=== PATIENT | male | born 1985 | race Hispanic/Latino ===

== ENCOUNTER 2018-04-18 11:48 | Emergency (ER) | payer OTHER ==
[2018-04-18 12:25] LABS: Urine Blood NEGATIVE (NEG); Urine Glucose NEGATIVE (NEG); Urine Protein NEGATIVE (NEG); Urine Specific Gravity 1.005 (1.005-1.030); Urine pH 5.5 (5.0-7.0)
[2018-04-18 12:46] LABS: Barbiturates NEGATIVE (NEGATIVE); Benzodiazepines NEGATIVE (NEGATIVE); Cocaine POSITIVE (NEGATIVE); METHAMPHETAM NEGATIVE (NEGATIVE); Methadone NEGATIVE (NEGATIVE); Opiates NEGATIVE (NEGATIVE); Phencyclidine NEGATIVE (NEGATIVE); THC Cannibis NEGATIVE (NEGATIVE)
[2018-04-18 12:57] LABS: Absolute Lymphocytes (CBC) 2.1 K/uL (0.7-4.9); Absolute Monocytes 1.2 K/uL (0.1-1.3); Absolute Neutrophil 11.6 K/uL (1.8-8.0); Basophils % 0.3 % (0-1.3); Eosinophils % 0.2 % (0-4.4); MCH 30.5 pg (27.0-35.0); MCV 88.3 fL (80-100); MPV 7.7 fL (7.6-11.3); Monocytes % 8.1 % (3.3-12.3); RBC Red Blood Cell Count 4.64 M/uL (4.33-5.43)
[2018-04-18 12:58] LABS: Protime INR 1.17
--- NOTE | 2018-04-18 12:58 | RAD REPORT ---
EXAM DESCRIPTION: Brant Single View04/18/2018 12:42 pm CLINICAL HISTORY: Chest pain COMPARISON: none FINDINGS: The lungs appear clear of acute infiltrate. The heart appears borderline enlarged IMPRESSION: No acute abnormalities displayed
[2018-04-18 13:57] LABS: ALT/SGPT 34 U/L (12-78); AST/SGOT 21 U/L (15-37); Albumin 4.1 g/dL (3.4-5.0); Alkaline Phosphatase 82 U/L (45-117); BUN Blood Urea Nitrogen 4 mg/dL (7-18); Bicarbonate 26 mmol/L (21-32); Bilirubin Direct < 0.1 mg/dL (0-0.2); Bilirubin Total 0.5 mg/dL (0.2-1.0); Glucose Level 103 mg/dL (74-106); Magnesium 1.9 mg/dL (1.8-2.4); NT PRO-BNP 36 pg/mL (<125); Potassium 3.2 mmol/L (3.5-5.1); Protein, Total 8.3 g/dL (6.4-8.2); Sodium Level 138 mmol/L (136-145); Troponin (Emerg Dept Use Only) < 0.02 ng/mL (0.0-0.045)
--- NOTE | 2018-04-18 14:34 | EKG ---
Test Date: 2018-04-18 Test Time: 12:02:41 Technician Preventative Medicine: MARIO MEASUREMENT RESULTS: Intervals: Rate: 86 CA: 146 QRSD: 110 QT: 354 QTc: 423 [place]: P: 67 CA: 146 QRS: 31 T: 44 INTERPRETIVE STATEMENTS: Normal sinus rhythm Normal ECG No previous ECG available for comparison Electronically Signed On 04-18-18 14:33:52 CABLE ENGINEER [employer] by Wolf Cameron
--- NOTE | 2018-04-18 15:17 | ER ---
Nurse's Notes [facility] Name: Guy Joe Jr Age: 33 yrs Sex: Male : 1985 Arrival Date: 04/18/2018 Time: 11:51 Bed 3 Private MD: None, None Diagnosis: Cocaine abuse Presentation: 04/18 11:54 Presenting complaint: Patient states: "I did a gram of cocaine this morning and I just aj don't feel right. I feel numb and tingly all over and I just feel lost." Denies chest pain. Transition of care: patient was not received from another setting of care. Onset of symptoms was April 18, 2018. Risk Assessment: Do you want to hurt yourself or someone else? Patient reports no desire to harm self or others. Initial Sepsis Screen: Does the patient meet any 2 criteria? No. Patient's initial sepsis screen is negative. Does the patient have a suspected source of infection? No. Patient's initial sepsis screen is negative. Care prior to arrival: None. 11:54 Method Of Arrival: Ambulatory 11:54 Acuity: LOW 3 aj Triage Assessment: 11:56 General: Appears in no apparent distress. uncomfortable, Behavior is cooperative, aj anxious. Pain: Denies pain. Neuro: Level of Consciousness is awake, alert, obeys commands, Oriented to person, place, time, situation, Appropriate for age Tingling in entire body. Respiratory: Airway is patent Respiratory effort is even, unlabored, Respiratory pattern is regular, symmetrical. Derm: Skin is intact, is healthy with good turgor, Skin is pink, warm \\T\\ dry. normal. Historical: - Allergies: 11:56 No Known Allergies; aj - Home Meds: 11:56 Xanax Oral [Active]; aj - PMHx: 11:56 Anxiety; aj - PSHx: 11:56 Appendectomy; aj - Immunization history:: Adult Immunizations up to date. - Social history:: Smoking status: Patient uses tobacco products, smokes one-half pack cigarettes per day, Patient uses street drugs, cocaine. - Ebola Screening: : Patient negative for fever greater than or equal to 101.5 degrees Fahrenheit, and additional compatible Ebola Virus Disease symptoms Patient denies exposure to infectious person Patient denies travel to an Ebola-affected area in the 21 days before illness onset No symptoms or risks identified at this time. Screenin:59 Abuse screen: Denies threats or abuse. Denies injuries from another. Nutritional bp screening: No deficits noted. Tuberculosis screening: No symptoms or risk factors identified. Fall Risk None identified. Assessment: 12:01 General: SEE TRIAGE NOTE. bp 13:00 Reassessment: ALL CURRENT ORDERS COMPLETED, RESULTS AND DISPO PENDING. bp 15:39 Reassessment: PT D/C HOME AMBULATORY WITH FAMILY, DX WITH COCAINE ABUSE. bp Vital Signs: 11:56 BP 147 / 90; Pulse 94; Resp 20; Temp 98.7; Pulse Ox 98% on R/A; Weight 108.86 kg; aj Height 6 ft. 1 in. (185.42 cm); 13:00 BP 127 / 72; Pulse 80; Resp 20; Pulse Ox 98% ; bp 15:00 BP 131 / 75; Pulse 84; Resp 18; Pulse Ox 98% ; bp 11:56 Body Mass Index 31.66 (108.86 kg, 185.42 cm) aj ED Course: 11:51 Patient arrived in ED. mr 11:52 None, None is Private Physician. mr 11:55 Triage completed. aj 11:56 Arm band placed on left wrist. Patient placed in an exam room. aj 11:58 Florencio Ray MD is Attending Physician. kdr 11:58 Yuriy Parr, SPENCER is Primary Nurse. bp 11:59 Patient has correct armband on for positive identification. Bed in low position. Call bp light in reach. Side rails up X2. Adult w/ patient. 12:00 Inserted saline lock: 20 gauge in left upper arm, using aseptic technique. Blood bp collected. 12:09 EKG done, by machine set up technician. reviewed by Florencio Ray MD. at1 12:37 X-ray completed. Portable x-ray completed in exam room. Patient tolerated procedure jb2 well. 12:40 XRAY Chest (1 view) In Process Unspecified. EDMS 15:40 No provider procedures requiring assistance completed. IV discontinued, intact, bp bleeding controlled, No redness/swelling at site. Pressure dressing applied. Administered Medications: No medications were administered Outcome: 15:16 Discharge ordered by . kdr 15:40 Discharged to home ambulatory, with family. bp 15:40 Condition: stable 15:40 Discharge instructions given to patient, Instructed on discharge instructions, follow up and referral plans. Demonstrated understanding of instructions, follow-up care. 15:41 Patient left the ED. bp Signatures: Dispatcher [employer] EDTarah Bell, RN RN Florencio Martínez MD MD kdr Rivera, Mary mr Martirtopher, Bill jb2 Tarah Lazar, wash test checker EKG Tat1 Yuriy Parr RN RN bp
--- NOTE | 2018-04-18 15:17 | EDPHYS ---
Physician Documentation [facility] Name: Guy Joe Jr Age: 33 yrs Sex: Male : 1985 Arrival Date: 04/18/2018 Time: 11:51 Bed 3 Private MD: None, None ED Physician Florencio Ray HPI: 04/18 17:43 This 33 yrs old Male presents to ER via Ambulatory with complaints of Drug kdr Abuse. Historical: - Allergies: 11:56 No Known Allergies; aj - Home Meds: 11:56 Xanax Oral [Active]; aj - PMHx: 11:56 Anxiety; aj - PSHx: 11:56 Appendectomy; aj - Immunization history:: Adult Immunizations up to date. - Social history:: Smoking status: Patient uses tobacco products, smokes one-half pack cigarettes per day, Patient uses street drugs, cocaine. - Ebola Screening: : Patient negative for fever greater than or equal to 101.5 degrees Fahrenheit, and additional compatible Ebola Virus Disease symptoms Patient denies exposure to infectious person Patient denies travel to an Ebola-affected area in the 21 days before illness onset No symptoms or risks identified at this time. ROS: 18:54 Constitutional: Negative for fever, chills, and weight loss, Eyes: Negative for injury, kdr pain, redness, and discharge, ENT: Negative for injury, pain, and discharge, Neck: Negative for injury, pain, and swelling, Cardiovascular: Negative for chest pain, palpitations, and edema, Respiratory: Negative for shortness of breath, cough, wheezing, and pleuritic chest pain, Abdomen/GI: Negative for abdominal pain, nausea, vomiting, diarrhea, and constipation, Back: Negative for injury and pain, : Negative for injury, bleeding, discharge, and swelling, MS/Extremity: Negative for injury and deformity, Skin: Negative for injury, rash, and discoloration, Psych: Negative for depression, anxiety, suicide ideation, homicidal ideation, and hallucinations, Allergy/Immunology: Negative for hives, rash, and allergies, Endocrine: Negative for neck swelling, polydipsia, polyuria, polyphagia, and marked weight changes, Hematologic/Lymphatic: Negative for swollen nodes, abnormal bleeding, and unusual bruising. 18:54 Neuro: Positive for altered mental status, weakness, Confusion \T\ altered perception. Exam: 18:55 Constitutional: This is a well developed, well nourished patient who is awake, alert, kdr and in no acute distress. Head/Face: Normocephalic, atraumatic. Eyes: Pupils equal round and reactive to light, extra-ocular motions intact. Lids and lashes normal. Conjunctiva and sclera are non-icteric and not injected. Cornea within normal limits. Periorbital areas with no swelling, redness, or edema. Neck: Trachea midline, no thyromegaly or masses palpated, and no cervical lymphadenopathy. Supple, full range of motion without nuchal rigidity, or vertebral point tenderness. No Meningismus. Chest/axilla: Normal chest wall appearance and motion. Nontender with no deformity. No lesions are appreciated. Cardiovascular: Regular rate and rhythm with a normal S1 and S2. No gallops, murmurs, or rubs. Normal PMI, no JVD. No pulse deficits. Respiratory: Lungs have equal breath sounds bilaterally, clear to auscultation and percussion. No rales, rhonchi or wheezes noted. No increased work of breathing, no retractions or nasal flaring. Abdomen/GI: Soft, non-tender, with normal bowel sounds. No distension or tympany. No guarding or rebound. No evidence of tenderness throughout. Back: No spinal tenderness. No costovertebral tenderness. Full range of motion. Skin: Warm, dry with normal turgor. Normal color with no rashes, no lesions, and no evidence of cellulitis. MS/ Extremity: Pulses equal, no cyanosis. Neurovascular intact. Full, normal range of motion. Neuro: Awake and alert, GCS 15, oriented to person, place, time, and situation. Cranial nerves II-XII grossly intact. Motor strength 5/5 in all extremities. Sensory grossly intact. Cerebellar exam normal. Normal gait. Psych: Awake, alert, with orientation to person, place and time. Behavior, mood, and affect are within normal limits. Vital Signs: 11:56 BP 147 / 90; Pulse 94; Resp 20; Temp 98.7; Pulse Ox 98% on R/A; Weight 108.86 kg; aj Height 6 ft. 1 in. (185.42 cm); 13:00 BP 127 / 72; Pulse 80; Resp 20; Pulse Ox 98% ; bp 15:00 BP 131 / 75; Pulse 84; Resp 18; Pulse Ox 98% ; bp 11:56 Body Mass Index 31.66 (108.86 kg, 185.42 cm) aj MDM: 15:16 Patient medically screened. kdr 18:55 Data reviewed: vital signs, nurses notes, lab test result(s). Counseling: I had a kdr detailed discussion with the patient and/or guardian regarding: the historical points, exam findings, and any diagnostic results supporting the discharge/admit diagnosis, lab results, the need for outpatient follow up. ED course: The patient was stable and non-acute in the ED. 04/18 11:59 Order name: Basic Metabolic Panel kdr 04/18 11:59 Order name: CBC with Diff [facility] 04/18 11:59 Order name: LFT's [facility] 04/18 11:59 Order name: Magnesium kdr 04/18 11:59 Order name: NT PRO-BNP [facility] 04/18 11:59 Order name: PT-INR [facility] 04/18 11:59 Order name: Troponin (emerg Dept Use Only) [facility] 04/18 11:59 Order name: XRAY Chest (1 view) [facility] 04/18 11:59 Order name: EKG; Complete Time: 12:01 [facility] 04/18 11:59 Order name: UDS [facility] 04/18 11:59 Order name: ETOH Level [facility] 04/18 11:59 Order name: ASA [facility] 04/18 11:59 Order name: Acetaminophen [facility] 04/18 12:12 Order name: Urine Dipstick--Ancillary (enter results) eb 04/18 11:59 Order name: Cardiac monitoring; Complete Time: 12:27 [facility] 04/18 11:59 Order name: EKG - Nurse/Tech; Complete Time: 12:27 [facility] 04/18 11:59 Order name: IV Saline Lock; Complete Time: 12:27 [facility] 04/18 11:59 Order name: Labs collected and sent; Complete Time: 12:28 [facility] 04/18 11:59 Order name: O2 Per Protocol; Complete Time: 12:28 [facility] 04/18 11:59 Order name: O2 Sat Monitoring; Complete Time: 12:28 kdr Administered Medications: No medications were administered Disposition: 18:54 Co-signature as Attending Physician, Florencio Ray MD I agree with the assessment and kdr plan of care. Disposition: 04/18/18 15:16 Discharged to Home. Impression: Cocaine abuse. - Condition is Stable. - Discharge Instructions: Stimulant Use Disorder-Cocaine. - Medication Reconciliation Form, Thank You Letter form. - Follow up: Private Physician; When: 2 - 3 days; Reason: If symptoms return, Further diagnostic work-up, Recheck today's complaints, Continuance of care, Re-evaluation by your physician. - Problem is new. - Symptoms have improved. Signatures: Dispatcher [employer] EDTarah Bell, RN RN Florencio Martínez MD MD kdr Yuriy Parr RN RN bp Corrections: (The following items were deleted from the chart) 15:41 15:16 04/18/2018 15:16 Discharged to Home. Impression: Cocaine abuse. Condition is bp Stable. Forms are Medication Reconciliation Form, Thank You Letter, Antibiotic Education, Prescription Opioid Use. Follow up: Private Physician; When: 2 - 3 days; Reason: If symptoms return, Further diagnostic work-up, Recheck today's complaints, Continuance of care, Re-evaluation by your physician. Problem is new. Symptoms have improved. kdr
== END 2018-04-18 15:41 | disposition home or self-care (01) ==
LOC: ER 11:48
DX: F14.10 Cocaine abuse, uncomplicated (principal); F41.9 Anxiety disorder, unspecified; F17.210 Nicotine dependence, cigarettes, uncomplicated
CPT/HCPCS: 36415; 71045; 80048; 80076; 80307; 80320; 80329; 81003; 83735; 83880; 84484; 85025; 85610; 93005; 99284

== ENCOUNTER 2020-06-21 12:59 | Emergency (ER) | payer OTHER ==
--- OUTSIDE RECORDS SUMMARY | 2020-06-21 13:02 | XMS REPORT | Continuity of Care Document ---
:1985 Author Organization [facility] t Address [address] [place] [address] Dr. Rodriguez [address] [place] [id number] Care Team Providers Name Role Phone Unavailable Unavailable Unavailable Problems This patient has no known problems. Allergies, Adverse Reactions, Alerts This patient has no known allergies or adverse reactions. Medications This patient has no known medications. Procedures This patient has no known procedures. Results This patient has no known results.
[2020-06-21 17:22] LABS: Absolute Lymphocytes (CBC) 1.8 K/uL (0.7-4.9); Basophils % 0.3 % (0-1.3); Hematocrit 45.7 % (39.6-49.0); Lymphocytes % 13.2 % (15.3-44.8); RBC Red Blood Cell Count 5.05 M/uL (4.33-5.43)
[2020-06-21 17:35] LABS: ALT/SGPT 131 U/L (12-78); AST/SGOT 54 U/L (15-37); Albumin 4.1 g/dL (3.4-5.0); Alkaline Phosphatase 97 U/L (45-117); BUN Blood Urea Nitrogen 11 mg/dL (7-18); Bicarbonate 27 mmol/L (21-32); Bilirubin Direct 0.1 mg/dL (0-0.2); Bilirubin Total 0.3 mg/dL (0.2-1.0); Glucose Level 100 mg/dL (74-106); Lipase 101 U/L (73-393); Potassium 3.8 mmol/L (3.5-5.1); Sodium Level 137 mmol/L (136-145); Troponin (Emerg Dept Use Only) < 0.02 ng/mL (0.0-0.045)
--- NOTE | 2020-06-21 17:58 | RAD REPORT ---
EXAM DESCRIPTION: US - Abdomen Exam Limited - 06/21/2020 5:42 pm CLINICAL HISTORY: ABD PAIN COMPARISON: No comparisons FINDINGS: No gallstones, sludge or other abnormalities within the gallbladder lumen. Gallbladder wal l is thickened for the amount of distention. No pericholecystic fluid identified. No common duct stone or biliary tree dilatation identified. Partially imaged liver shows fatty infiltration pattern. IMPRESSION: Gallbladder wall thickening without stones or sludge identifiable. This can be seen with both acute and chronic cholecystitis and needs clinical correlation. No duct stone or biliary tree dilatation. Fatty infiltration of a partially imaged liver.
--- NOTE | 2020-06-21 18:12 | EDPHYS ---
Physician Documentation [facility] Name: Guy Joe Jr Age: 35 yrs Sex: Male : 1985 Arrival Date: 06/21/2020 Time: 13:00 Bed 23 Private MD: ED Physician Gary Prakash HPI: 06/21 19:54 This 35 yrs old Male presents to ER via Ambulatory with complaints of kb Abdominal Pain, Epigastric Pain. 19:54 The patient presents with abdominal pain in the upper abdomen. Onset: The kb symptoms/episode began/occurred today. The symptoms do not radiate. Associated signs and symptoms: none. The symptoms are described as constant. Modifying factors: The symptoms are alleviated by nothing, the symptoms are aggravated by food. Severity of pain: At its worst the pain was moderate in the emergency department the pain has resolved. The patient has experienced a previous episode. The patient has not recently seen a physician. Pt reports upper abd pain, worse to RUQ, that started earlier today. Pt states the pain is gone now and he would just like to leave, [facility] I discussed the labs and US that I would like to do and why. Pt agrees to have them done. Historical: - Allergies: 13:10 No Known Allergies; ca1 - Home Meds: 13:10 none [Active]; ca1 - PMHx: 13:10 Anxiety; ca1 - PSHx: 13:10 Appendectomy; ca1 - Immunization history:: Flu vaccine is not up to date. - Social history:: Smoking status: Patient denies any tobacco usage or history of. ROS: 19:53 Constitutional: Negative for fever, chills, and weight loss, Cardiovascular: Negative kb for chest pain, palpitations, and edema, Respiratory: Negative for shortness of breath, cough, wheezing, and pleuritic chest pain, Back: Negative for injury and pain, MS/Extremity: Negative for injury and deformity, Skin: Negative for injury, rash, and discoloration, Neuro: Negative for headache, weakness, numbness, tingling, and seizure. 19:53 Abdomen/GI: Positive for abdominal pain, Negative for nausea, vomiting, and diarrhea. Exam: 19:53 Constitutional: This is a well developed, well nourished patient who is awake, alert, kb and in no acute distress. Head/Face: Normocephalic, atraumatic. Chest/axilla: Normal chest wall appearance and motion. Nontender with no deformity. No lesions are appreciated. Cardiovascular: Regular rate and rhythm with a normal S1 and S2. No gallops, murmurs, or rubs. Normal PMI, no JVD. No pulse deficits. Respiratory: Lungs have equal breath sounds bilaterally, clear to auscultation and percussion. No rales, rhonchi or wheezes noted. No increased work of breathing, no retractions or nasal flaring. Skin: Warm, dry with normal turgor. Normal color with no rashes, no lesions, and no evidence of cellulitis. MS/ Extremity: Pulses equal, no cyanosis. Neurovascular intact. Full, normal range of motion. Neuro: Awake and alert, GCS 15, oriented to person, place, time, and situation. Cranial nerves II-XII grossly intact. Motor strength 5/5 in all extremities. Sensory grossly intact. Cerebellar exam normal. Normal gait. 19:53 Abdomen/GI: Inspection: abdomen appears normal, Bowel sounds: normal, in all quadrants, Palpation: soft, in all quadrants, mild abdominal tenderness, in the right upper quadrant and left upper quadrant. Vital Signs: 13:07 BP 154 / 104; Pulse 92; Resp 16 S; Temp 97.8(TE); Pulse Ox 97% on R/A; Weight 131.54 kg ca1 (R); Height 6 ft. 1 in. (185.42 cm) (R); Pain 10/10; 16:24 BP 134 / 85; Pulse 69; Resp 17; Pulse Ox 96% on R/A; tw2 17:06 BP 148 / 83; Pulse 74; Resp 17; Pulse Ox 97% on R/A; tw2 18:01 BP 143 / 63; Pulse 71; Resp 17; Pulse Ox 99% on R/A; tw2 13:07 Body Mass Index 38.26 (131.54 kg, 185.42 cm) ca1 MDM: 15:49 Patient medically screened. kb 18:31 Data reviewed: vital signs, nurses notes. Data interpreted: Pulse oximetry: on room air kb is 99 %. Interpretation: normal. Counseling: I had a detailed discussion with the patient and/or guardian regarding: the historical points, exam findings, and any diagnostic results supporting the discharge/admit diagnosis, lab results, radiology results, the need for outpatient follow up, a family practitioner, to return to the emergency department if symptoms worsen or persist or if there are any questions or concerns that arise at home. 06/21 15:57 Order name: Basic Metabolic Panel kb 06/21 15:57 Order name: CBC with Diff kb 06/21 15:57 Order name: Hepatic Function kb 06/21 15:57 Order name: Lipase kb 06/21 15:57 Order name: Troponin (emerg Dept Use Only) kb 06/21 17:30 Order name: CBC with Automated Diff; Complete Time: 17:35 EDMS 06/21 13:11 Order name: EKG; Complete Time: 13:15 ca1 06/21 13:11 Order name: EKG - Nurse/Tech; Complete Time: 13:14 ca1 06/21 16:14 Order name: US Abdomen Limited kb 06/21 17:36 Order name: Basic Metabolic Panel; Complete Time: 17:36 EDMS 06/21 17:36 Order name: Liver (Hepatic) Function; Complete Time: 17:36 EDMS 06/21 17:36 Order name: Troponin (Emerg Dept Use Only); Complete Time: 17:36 EDMS 06/21 17:36 Order name: Lipase; Complete Time: 17:36 EDMS 06/21 18:01 Order name: US; Complete Time: 18:09 EDMS 06/21 15:57 Order name: IV Saline Lock; Complete Time: 17:06 kb 06/21 15:57 Order name: Labs collected and sent; Complete Time: 16:47 kb 06/21 16:53 Order name: Labs - recollect needed: green top; Complete Time: 17:06 iw Administered Medications: No medications were administered Disposition: 06/22 15:57 Co-signature as Attending Physician, Gary Prakash MD. ma2 Disposition: 06/21/20 18:12 Discharged to Home. Impression: Upper abdominal pain, unspecified. - Condition is Stable. - Discharge Instructions: Biliary Colic, Adult, Abdominal Pain, Adult, [id number]. - Medication Reconciliation Form, Thank You Letter, Antibiotic Education, Prescription Opioid Use form. - Follow up: Emergency Department; When: As needed; Reason: Worsening of condition. Follow up: Private Physician; When: 2 - 3 days; Reason: Recheck today's complaints, Continuance of care, Re-evaluation by your physician. Signatures: Dispatcher [employer] Teresita Rodriguez, JOSE RAFAEL-C DIRECTOR OF RESOURCE DEVELOPMENT-Ophelia Solano, RN RN iw Ofelia Norwood RN RN tw2 Gary Prakash MD MD ma2 Fela Wood RN RN ca1 Corrections: (The following items were deleted from the chart) 06/21 18:16 18:12 06/21/2020 18:12 Discharged to Home. Impression: Upper abdominal pain, tw2 unspecified. Condition is Stable. Forms are Medication Reconciliation Form, Thank You Letter, Antibiotic Education, Prescription Opioid Use. Follow up: Emergency Department; When: As needed; Reason: Worsening of condition. Follow up: Private Physician; When: 2 - 3 days; Reason: Recheck today's complaints, Continuance of care, Re-evaluation by your physician. kb
--- NOTE | 2020-06-21 18:12 | ER ---
Nurse's Notes [facility] Name: Guy Joe Jr Age: 35 yrs Sex: Male : 1985 Arrival Date: 06/21/2020 Time: 13:00 Bed 23 Private MD: Diagnosis: Upper abdominal pain, unspecified Presentation: 06/21 13:07 Chief complaint: Patient states: Started in the middle of the night last night, pain at ca1 the epigastric region radiating on the RUQ, LUQ and lower back. Reports nausea. It's gotten worse and worse. Coronavirus screen: Client denies travel out of the [place] in the last 14 days. nausea, Client presents with at least one sign or symptom that may indicate coronavirus-19. Standard/surgical mask placed on the client. Provider contacted for isolation considerations. Ebola Screen: Patient negative for fever greater than or equal to 101.5 degrees Fahrenheit, and additional compatible Ebola Virus Disease symptoms Patient denies exposure to infectious person. Patient denies travel to an Ebola-affected area in the 21 days before illness onset. No symptoms or risks identified at this time. Initial Sepsis Screen: Does the patient meet any 2 criteria? No. Patient's initial sepsis screen is negative. Does the patient have a suspected source of infection? No. Patient's initial sepsis screen is negative. Risk Assessment: Do you want to hurt yourself or someone else? Patient reports no desire to harm self or others. Onset of symptoms was June 21, 2020. 13:07 Method Of Arrival: Ambulatory ca1 13:07 Acuity: LOW 2 ca1 Triage Assessment: 13:10 General: Appears in no apparent distress. uncomfortable. Pain: Complains of pain in ca1 epigastric area. Historical: - Allergies: 13:10 No Known Allergies; ca1 - Home Meds: 13:10 none [Active]; ca1 - PMHx: 13:10 Anxiety; ca1 - PSHx: 13:10 Appendectomy; ca1 - Immunization history:: Flu vaccine is not up to date. - Social history:: Smoking status: Patient denies any tobacco usage or history of. Screenin:11 Abuse screen: Denies threats or abuse. Nutritional screening: No deficits noted. tw2 Tuberculosis screening: No symptoms or risk factors identified. Fall Risk None identified. Assessment: 16:08 Reassessment: AMA form signed with chart pt states "i just want to go, the pain is gone tw2 [facility]". 16:10 Reassessment: provider at bedside at this time. tw2 16:11 Reassessment: provider at bedside at this time, pt agreeable to stay for blood work and tw2 US. 16:11 General: Appears in no apparent distress. well groomed, Behavior is calm, cooperative, tw2 appropriate for age. Pain: Denies pain. Neuro: Level of Consciousness is awake, alert, obeys commands, Oriented to person, place, time, situation. Cardiovascular: Capillary refill < 3 seconds. Respiratory: Airway is patent Respiratory effort is even, unlabored, Respiratory pattern is regular, symmetrical. GI: Abdomen is round non-distended. : No signs and/or symptoms were reported regarding the genitourinary system. EENT: No signs and/or symptoms were reported regarding the EENT system. Derm: No signs and/or symptoms reported regarding the dermatologic system. Musculoskeletal: Range of motion: intact in all extremities. 17:06 Reassessment: Patient appears in no apparent distress at this time. No changes from tw2 previously documented assessment. Patient and/or family updated on plan of care and expected duration. Pain level reassessed. Patient is alert, oriented x 3, equal unlabored respirations, skin warm/dry/pink. 18:01 Reassessment: Patient appears in no apparent distress at this time. No changes from tw2 previously documented assessment. Patient and/or family updated on plan of care and expected duration. Pain level reassessed. Patient is alert, oriented x 3, equal unlabored respirations, skin warm/dry/pink. 18:10 Reassessment: provider at bedside. tw2 18:16 Reassessment: Patient appears in no apparent distress at this time. No changes from tw2 previously documented assessment. Patient and/or family updated on plan of care and expected duration. Pain level reassessed. Patient is alert, oriented x 3, equal unlabored respirations, skin warm/dry/pink. Vital Signs: 13:07 BP 154 / 104; Pulse 92; Resp 16 S; Temp 97.8(TE); Pulse Ox 97% on R/A; Weight 131.54 kg ca1 (R); Height 6 ft. 1 in. (185.42 cm) (R); Pain 10/10; 16:24 BP 134 / 85; Pulse 69; Resp 17; Pulse Ox 96% on R/A; tw2 17:06 BP 148 / 83; Pulse 74; Resp 17; Pulse Ox 97% on R/A; tw2 18:01 BP 143 / 63; Pulse 71; Resp 17; Pulse Ox 99% on R/A; tw2 13:07 Body Mass Index 38.26 (131.54 kg, 185.42 cm) ca1 ED Course: 13:00 Patient arrived in ED. as 13:09 Triage completed. ca1 13:10 Arm band placed on right wrist. ca1 15:48 Teresita Clement FNP-C is PHCP. kb 15:48 Gary Prakash MD is Attending Physician. kb 15:48 Bed in low position. Call light in reach. Pulse ox on. NIBP on. tw2 15:58 Ofelia Norwood, RN is Primary Nurse. tw2 16:23 Missed attempt(s): 20 gauge in right antecubital area. blood collected by SERINA Harkins. tw2 Bleeding controlled, band aid applied, catheter tip intact. 17:03 Inserted saline lock: 20 gauge in left antecubital area, using aseptic technique. Blood tw2 collected. 18:16 No provider procedures requiring assistance completed. IV discontinued, intact, tw2 bleeding controlled, No redness/swelling at site. Pressure dressing applied. Administered Medications: No medications were administered Outcome: 18:12 Discharge ordered by MD. kb 18:16 Discharged to home ambulatory. tw2 18:16 Condition: stable 18:16 Discharge instructions given to patient, Instructed on discharge instructions, follow up and referral plans. Demonstrated understanding of instructions, follow-up care. 18:16 Patient left the ED. tw2 Signatures: Teresita Clement FNP-C AGILE QA TESTER-Yelena Meza as Ofelia Norwood RN RN tw2 Fela Wood RN RN ca1 Corrections: (The following items were deleted from the chart) 13:09 13:07 Chief complaint: Patient states: Started in the middle of the night last night, ca1 pain at the epigastric region radiating on the RUQ, LUQ and lower back. Reports nausea ca1
[2020-06-21 21:05] VITALS: TEMP 97.8
[2020-06-21 21:09] VITALS: BP 143/63; O2SAT 99
--- NOTE | 2020-06-22 12:57 | EKG ---
Test Date: 2020-06-21 Test Time: 13:13:37 [employer]idential [employer]or: [employer] MEASUREMENT RESULTS: Intervals: Rate: 78 TN: 158 QRSD: 96 QT: 354 QTc: 403 [place]: P: 42 TN: 158 QRS: 36 T: 18 INTERPRETIVE STATEMENTS: Normal sinus rhythm Normal ECG Compared to ECG 04/18/2018 12:02:41 No significant changes Electronically Signed On 06-22-20 12:53:39 PRODUCTION BOW MAKER by Wolf Cameron
== END 2020-06-21 18:16 | disposition home or self-care (01) ==
LOC: ER 12:59
DX: R10.10 Upper abdominal pain, unspecified (principal); Z53.29 Procedure and treatment not carried out because of patient's decision for other reasons
CPT/HCPCS: 36415; 76705; 80048; 80076; 83690; 84484; 85025; 93005; 99284

== ENCOUNTER 2021-02-22 23:16 | Emergency (ER) | payer OTHER ==
--- NOTE | 2021-02-23 00:25 | EDPHYS ---
Physician Documentation [facility] Name: Guy Joe Jr Age: 36 yrs Sex: Male : 1985 Arrival Date: 02/22/2021 Time: 23:23 Bed DX3 Private MD: ED Physician Gary Prakash HPI: 02/23 00:20 This 36 yrs old Male presents to ER via EMS with complaints of left knee ma2 sprain . 00:20 The patient presents with a contusion, decreased range of motion. The complaints affect ma2 the left leg. The complaints affect the left leg. Onset: The symptoms/episode began/occurred suddenly, 1 hour(s) ago. Associated signs and symptoms: Pertinent positives: swelling, Pertinent negatives nausea, vomiting, warmth. Severity of symptoms: At their worst the symptoms were severe, in the emergency department the symptoms are unchanged. The patient has not experienced similar symptoms in the past. Patient was arrested by police, while in the process he sustained left knee sprain here with left knee pain and swelling,. Historical: - Allergies: 02/22 23:55 No Known Allergies; wr - Immunization history:: None. - Social history:: Patient/guardian denies using. - Family history:: not pertinent. ROS: 02/23 00:20 Constitutional: Negative for fever, chills, and weight loss. ma2 All other systems are negative. Exam: 00:20 Constitutional: This is a well developed, well nourished patient who is awake, alert, ma2 and in no acute distress. Head/Face: Normocephalic, atraumatic. Eyes: Pupils equal round and reactive to light, extra-ocular motions intact. Lids and lashes normal. Conjunctiva and sclera are non-icteric and not injected. Cornea within normal limits. Periorbital areas with no swelling, redness, or edema. ENT: Nares patent. No nasal discharge, no septal abnormalities noted. Tympanic membranes are normal and external auditory canals are clear. Oropharynx with no redness, swelling, or masses, exudates, or evidence of obstruction, uvula midline. Mucous membranes moist. Neck: Trachea midline, no thyromegaly or masses palpated, and no cervical lymphadenopathy. Supple, full range of motion without nuchal rigidity, or vertebral point tenderness. No Meningismus. Chest/axilla: Normal chest wall appearance and motion. Nontender with no deformity. No lesions are appreciated. Cardiovascular: Regular rate and rhythm with a normal S1 and S2. No gallops, murmurs, or rubs. Normal PMI, no JVD. No pulse deficits. Respiratory: Lungs have equal breath sounds bilaterally, clear to auscultation and percussion. No rales, rhonchi or wheezes noted. No increased work of breathing, no retractions or nasal flaring. Abdomen/GI: Soft, non-tender, with normal bowel sounds. No distension or tympany. No guarding or rebound. No evidence of tenderness throughout. Skin: Warm, dry with normal turgor. Normal color with no rashes, no lesions, and no evidence of cellulitis. MS/ Extremity: Has left knee mild effusion, limited range of motion and medial lower tenderness. Pulses is intact pulses equal, no cyanosis. Neurovascular intact. Full, normal range of motion. Neuro: Awake and alert, GCS 15, oriented to person, place, time, and situation. Cranial nerves II-XII grossly intact. Motor strength 5/5 in all extremities. Sensory grossly intact. Cerebellar exam normal. Normal gait. Vital Signs: 02/22 23:53 BP 128 / 62; Pulse 89; Resp 18; Temp 98.6; Pulse Ox 99% ; Weight 133.81 kg; Height 6 wr ft. (182.88 cm); Pain 10/10; 23:58 BP 128 / 62; Pulse 89; Resp 18; Temp 98.6; Pulse Ox 99% ; Weight 124.74 kg; Height 6 wr ft. (182.88 cm); Pain 10/10; 23:58 Body Mass Index 37.30 (124.74 kg, 182.88 cm) wr MDM: 23:26 Patient medically screened. ma2 02/23 00:20 Differential diagnosis: dislocation, closed fracture, contusion, abrasion. Data ma2 reviewed: vital signs, nurses notes. Counseling: I had a detailed discussion with the patient and/or guardian regarding: the historical points, exam findings, and any diagnostic results supporting the discharge/admit diagnosis, the presence of at least one elevated blood pressure reading (>120/80) during this emergency department visit, the need for outpatient follow up. Response to treatment: the patient's symptoms have markedly improved after treatment. 02/22 23:26 Order name: Knee Left 3 View XRAY ma2 02/23 00:13 Order name: Knee Immobilizer; Complete Time: ma2 02/23 00:13 Order name: Crutches; Complete Time: : ma2 Administered Medications: 00:40 Drug: morphine 5 mg Route: IM; Site: right vastus lateralis; wr 00:40 Drug: Ondansetron 4 mg Route: PO; wr 01:14 Drug: [place] (HYDROcodone-acetaminophen) 10 mg-325 mg 1 tabs Route: PO; wr Disposition Summary: 02/23/21 00:24 Discharge Ordered Location: Home ma2 Condition: Stable ma2 Diagnosis - Sprain of unspecified site of left knee ma2 Followup: ma2 - With: Freddie Ibarra MD - When: Tomorrow - Reason: If symptoms return, Continuance of care Discharge Instructions: - Discharge Summary Sheet ma2 - Knee Sprain, Adult, [id number] ma2 Forms: - Medication Reconciliation Form ma2 - Thank You Letter ma2 - Antibiotic Education ma2 - Prescription Opioid Use ma2 Prescriptions: - Diclofenac Sodium 75 mg Oral Tablet Sustained Release - take 1 tablet by ORAL route 2 times per day; 30 tablet; Refills: 0, Product ma2 Selection Permitted Signatures: Dispatcher [employer] EDMS Gary Prakash MD MD ma2 Jon Cox Corrections: (The following items were deleted from the chart) 02/22 23:56 23:55 PMHx: Anxiety; wr wr
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
[2021-02-23] MEDS ORDERED: MORPHINE 2 MG/ML SYR ONE (00:57)
[2021-02-23] MEDS ORDERED: MORPHINE 4 MG/ML SYR ONE (00:58)
[2021-02-23] MEDS ORDERED: ONDANSETRON 4 MG (ODT) TAB ONE (00:59)
[2021-02-23] MEDS ORDERED: HYDROCODONE/APAP 10/325 TAB ONE (01:36)
--- NOTE | 2021-02-23 07:27 | RAD REPORT ---
EXAM DESCRIPTION: RAD - Knee Left 3 View - 02/22/2021 11:42 pm CLINICAL HISTORY: PAIN COMPARISON: No comparisons FINDINGS: No fracture, dislocation or periosteal reaction.Small joint effusion is present. No joint space narrowing. No soft tissue abnormality. IMPRESSION: Small joint effusion with no acute bone finding. Clinical concerns for internal derangement or occult bony injury could be further assessed with MR im aging.
== END 2021-02-23 01:17 | disposition home or self-care (01) ==
LOC: ER 23:16
DX: S83.92XA Sprain of unspecified site of left knee, initial encounter (principal)
CPT/HCPCS: 73562; 96372; 99283; J2270

== ENCOUNTER 2022-07-25 09:15 | Emergency (ER) | payer BC, OTHER ==
--- OUTSIDE RECORDS SUMMARY | 2022-07-25 09:18 | XMS REPORT | Continuity of Care Document ---
:1985 Author Organization [facility] t Address [address] [place] [address] Care Team Providers Name Role Phone PCP, PATIENT DOES NOT HAVE A Primary Care Physician Unavaila ble Doctor Unassigned, [place] Attending Clinician Unavailable Carla Lr MD Attending Clinician CARLA LR Attending Clinician Unavailable Carol Tomas Attending Clinician CAROL CURIEL Attending Clinician Unavailable CAROL CURIEL Admitting Clinician Unavailable Payers Payer Name Policy Type Policy Number Effective Date Expiration Date Suzy KEMP [id number] 2008 ADMINISTRATION 00:00:00 Problems Condition Condition Condition Status Onset Resolution Last Treating Co mments Source Name Details Category Date Date Treatment Clinician Date No known No known Disease Unive rs active active ity of problems problems [facility] Allergies, Adverse Reactions, Alerts Allergy Allergy Status Severity Reaction(s) Onset Inactive Treating Comm ents Source Name Type Date Date Clinician NO KNOWN Drug Active Univers ALLERGIE Class ity of S [facility] Social History Social Habit Start Date Stop Date Quantity Comments Source Exposure to Not sure University SARS-CoV-2 [facility] (event) [place] Alcohol intake 2021-05-11 2021-05-11 Lifetime University of 00:00:00 00:00:00 non-drinker [facility] (finding) [place] Tobacco use and 2021-02-25 2021-02-25 Never used Universit y of exposure 00:00:00 00:00:00 [facility] Sex Ass[birth year] Universit y of 00:00:00 00:00:00 [facility] Smoking Status Start Date Stop Date Source Never smoker [facility] Medications Ordered Filled Start Stop Current Ordering Indication Dosage Frequency Signature Comments Components Source Medication Medication Date Date Medication? Clinician (SIG) Name Name No known 2020-05 No Univers medications 2-22 ity of 15:04: [address] No known 2020-05 No Univers medications 2-22 ity of 15:04: [address] No known 2020-05 No Univers medications 2-22 ity of 15:04: [address] No known 2020-05 No Univers medications 2-22 ity of 15:04: [address] No known 2020-05 No Univers medications 0-27 ity of 15:54: [address] No known 2020-05 No Univers medications 0-27 ity of 15:54: [address] Vital Signs Vital Name Observation Time Observation Value Comments Source Body height 2021-03-16 20:54:00 185.4 cm [facility] Body weight 2021-03-16 20:54:00 124.739 kg [facility] BMI 2021-03-16 20:54:00 36.28 kg/m2 [facility] Procedures Procedure Date / Time Performed Performing Clinician Helen clayton DISABILITY/FMLA 2021-06-08 06:01:00 Doctor Unassigned, No [facility]iver [facility] DISABILITY/FMLA 2021-05-19 06:01:00 Doctor Unassigned, No [facility] XR KNEE 3 VW LEFT 2021-05-11 21:57:00 Carla Lr [facility] Encounters Start End Encounter Admission Attending Care Care Encounter Source Date/Time Date/Time Type Type Clinicians Facility Department ID 2021-06-08 2021-06-08 Orders Doctor GARCIA [id number] Univers 00:00:00 00:00:00 Only Unassigned, FRANCO [id number] ity of [facility] [id number] Julian as [phone] [address] 2021-05-19 2021-05-19 Orders Doctor GARCIA [id number] Univers 00:00:00 00:00:00 Only Unassigned, FRANCO [id number] ity of [place] [facility] [id number] Julian as [phone] [address] 2021-05-17 2021-05-17 Telephone [facility] [id number] Univers 00:00:00 00:00:00 Carla HOLLEY [id number] it y of [place] [id number] Julian as ZACKARY?BLEA [id number] De robert [address] [place] MED[facility] OFF[facility] 2021-05-11 2021-05-11 [facility] [id number] Univers 15:15:00 23:59:00 Encounter Carla HOLLEY [id number] ity of [place] [id number] Julian as ZACKARY?BLEA [id number] De robert [address] [place] MEDICAL OFFICE [facility] 2021-05-11 2021-05-11 Outpatient R [facility] [id number] Univers 14:45:00 16:38:04 [facility] 2021-03-18 2021-03-18 Outpatient R [facility] [id number] Univers 09:30:00 09:30:00 [facility] 2021-03-16 2021-03-16 [facility] [id number] Univers 15:55:00 23:59:00 Encounter Carla Summer [id number] ity of [place] [id number] Julian as Zackary?Blea [phone] De robert page [address]09 [facility] Office [facility] 2021-03-16 2021-03-16 Office [facility] [id number] Univers 15:48:30 16:47:16 Visit Carla Steen drop.io [id number] it y [facility] [id number] Julian as ZACKARY?BLEA [id number] De robert [address] [place] MEDICAL OFFICE BUILDING 2021-03-16 2021-03-16 Outpatient [facility] [id number] Univers 15:45:00 16:47:16 CARLA mueller [facility] 2021-03-16 2021-03-16 [facility] [id number] Univers 00:00:00 00:00:00 (Out) Carla Holley [id number] it y of [place] [id number] Julian as Zackary?Blea [phone] De robert page [address] [place] [address] Office [facility] 2021-02-25 2021-02-25 [facility] [id number] Univers 09:23:59 09:51:08 Visit Carla Holley [id number] it y of [place] [id number] Julian as Zackary?Blea [phone] De robert page [address] [place] [address] 2021-02-25 2021-02-25 Outpatient R [facility] [id number] Univers 09:00:00 09:51:08 CARLA rambo [facility] 2021-02-23 2021-02-23 Emergency [facility] [id number] Univers 18:25:00 22:26:00 Carol R [place] [id number] i [id number] [phone] [address] 2021-02-23 2021-02-23 Emergency X [facility] ERT [id number] Univers 18:25:00 22:26:00 CAROL mueller [facility] Results This patient has no known results.
[2022-07-25] MEDS ORDERED: IBUPROFEN 400 MG TAB ONE (09:44)
[2022-07-25] MEDS ORDERED: IBUPROFEN 200 MG TAB PO ONE (09:45)
--- NOTE | 2022-07-25 09:49 | RAD REPORT ---
EXAM DESCRIPTION: CT - Head Brain Wo Cont - 07/25/2022 9:41 am CLINICAL HISTORY: Headache COMPARISON: 2008 TECHNIQUE: Computed axial tomography of the head was obtained. IV contrast was not requested. All CT scans are performed using dose optimization technique as appropriate and may include automated exposure control or mA/KV adjustment according to patient size. FINDINGS: An intracranial bleed is not seen The ventricles are normal in caliber No significant hypodense areas within the brain visualized No extra-axial fluid collection is noted. Fluid within the sinuses/ mastoids is not seen IMPRESSION: No acute intracranial abnormality is seen If patient's symptoms persist MRI of the brain would be recommended
[2022-07-25 11:21] VITALS: O2SAT 100
[2022-07-25 11:31] VITALS: TEMP 97.8
[2022-07-25 11:32] VITALS: BP 162/93
--- NOTE | 2022-08-11 14:17 | ER ---
Nurse's Notes [facility] Name: Guy Joe Jr Age: 37 yrs Sex: Male : 1985 Arrival Date: 07/25/2022 Time: 09:18 Bed 12 Private MD: Diagnosis: Headache;Elevated blood-pressure reading, without diagnosis of hypertension Presentation: 07/25 09:31 Chief complaint: Patient states: Left sided headache X 2 weeks. Coronavirus screen: At ld1 this time, the client does not indicate any symptoms associated with coronavirus-19. Ebola Screen: No symptoms or risks identified at this time. Initial Sepsis Screen: Does the patient meet any 2 criteria? No. Patient's initial sepsis screen is negative. Does the patient have a suspected source of infection? No. Patient's initial sepsis screen is negative. Risk Assessment: Do you want to hurt yourself or someone else? Patient reports no desire to harm self or others. Onset of symptoms was July 25, 2022. 09:31 Method Of Arrival: Ambulatory ld1 09:31 Acuity: LOW 3 ld1 Triage Assessment: 09:32 General: Appears in no apparent distress. comfortable, Behavior is calm, cooperative, ld1 appropriate for age. Pain: Complains of pain in left holiness Pain does not radiate. Pain currently is 10 out of 10 on a pain scale. Quality of pain is described as pressure, throbbing. EENT: No signs and/or symptoms were reported regarding the EENT system. Neuro: Level of Consciousness is awake, alert, obeys commands, Oriented to person, place, time, situation, Reports headache in left. Cardiovascular: Capillary refill < 3 seconds Patient's skin is warm and dry. Respiratory: Airway is patent Respiratory effort is even, unlabored. GI: Abdomen is round non-distended. : No signs and/or symptoms were reported regarding the genitourinary system. Derm: No signs and/or symptoms reported regarding the dermatologic system. Musculoskeletal: No signs and/or symptoms reported regarding the musculoskeletal system. Historical: - Allergies: 09:32 No Known Allergies; ld1 - Home Meds: 09:32 None [Active]; ld1 - PMHx: :32 None; ld1 - PSHx: :32 Appendectomy; ld1 - Immunization history:: Adult Immunizations up to date, Client reports receiving the 1st dose of the Covid vaccine. - Social history:: Smoking status: Patient denies any tobacco usage or history of. Patient uses alcohol, occasionally. Screenin:12 [facility] ED Fall Risk Assessment (Adult) History of falling in the last 3 months, kr3 including since admission No falls in past 3 months (0 pts) Confusion or Disorientation No (0 pts) Intoxicated or Sedated No (0 pts) Impaired Gait No (0 pts) Mobility Assist Device Used No (0 pt) Altered Elimination No (0 pt) Score/Fall Risk Level 0 - 2 = Low Risk Oriented to surroundings, Maintained a safe environment, Educated pt \T\ family on fall prevention, incl call for assistance when getting out of bed, Assessed \T\ reinforced patient's understanding of fall precautions, Hourly rounding (assess needs \T\ fall precautionary measures) done. Abuse screen: Denies threats or abuse. Nutritional screening: No deficits noted. Tuberculosis screening: No symptoms or risk factors identified. Assessment: 10:37 Reassessment: Patient appears in no apparent distress at this time. Patient and/or kr3 family updated on plan of care and expected duration. Pain level reassessed. Patient is alert, oriented x 3, equal unlabored respirations, skin warm/dry/pink. Vital Signs: 09:31 Pulse 71; Resp 18; Temp 97.1(TE); Pulse Ox 100% on R/A; Weight 122.47 kg; Height 6 ft. ld1 1 in. ; Pain 10/10; 10:37 BP 138 / 78; Pulse 97; Resp 17; Pulse Ox 100% on R/A; kr3 09:31 Body Mass Index 35.62 (122.47 kg, 185.42 cm) ld1 09:31 Pain Scale: Adult ld1 ED Course: 09:18 Patient arrived in ED. rg4 09:19 Rickey Xie DO is Attending Physician. ms3 09:19 Fitz Castillo PA is PHCP. jmm 09:32 Triage completed. ld1 09:32 Arm band placed on right wrist. ld1 09:35 Sue Cisneros, SPENCER is Primary Nurse. kr3 09:35 Bed in low position. Call light in reach. Side rails up X 1. kr3 09:46 Rickey Xie DO is Attending Physician. jmannika 10:55 Yaniv Llanos MD is Referral Physician. ms3 11:13 No provider procedures requiring assistance completed. Patient did not have IV access kr3 during this emergency room visit. Administered Medications: 09:56 Drug: Ibuprofen PO 600 mg Route: PO; kr3 11:14 Follow up: Response: No adverse reaction kr3 Medication: 11:14 VIS not applicable for this client. kr3 Outcome: 10:55 Discharge ordered by MD. ms3 11:13 Discharged to home ambulatory. kr3 11:13 Condition: stable 11:13 Discharge instructions given to patient, Instructed on discharge instructions, follow up and referral plans. medication usage, Demonstrated understanding of instructions, follow-up care, medications, Prescriptions given X 1. 11:15 Patient left the ED. kr3 Signatures: Fitz Castillo PA PA jmm Garcia, Rubi rg4 Rickey Xie DO DO ms3 Marisel Moya RN RN ld1 Sue Cisneros RN RN kr3
--- NOTE | 2022-08-11 14:17 | EDPHYS ---
Physician Documentation [facility] Name: Guy Joe Jr Age: 37 yrs Sex: Male : 1985 Arrival Date: 07/25/2022 Time: 09:18 Bed 12 Private MD: ED Physician Rickey Xie HPI: 07/25 09:30 This 37 yrs old Male presents to ER via Unassigned with complaints of Head ms3 Pressure. 09:30 37-year-old male with no past medical history presents for left-sided headache that he ms3 describes as pressure that has been ongoing for 14 days. Patient states pain is a 10/10. Patient denies alleviating or inciting factors. Patient notes the headaches to be worse in the mornings. Patient denies nausea, vomiting. Historical: - Allergies: 09:32 No Known Allergies; ld1 - Home Meds: 09:32 None [Active]; ld1 - PMHx: 09:32 None; ld1 - PSHx: 09:32 Appendectomy; ld1 - Immunization history:: Adult Immunizations up to date, Client reports receiving the 1st dose of the Covid vaccine. - Social history:: Smoking status: Patient denies any tobacco usage or history of. Patient uses alcohol, occasionally. ROS: 09:38 Constitutional: Negative for fever, and chills. Neck: Negative for injury, pain, and ms3 swelling, Cardiovascular: Negative for chest pain, and palpitations. Respiratory: Negative for shortness of breath, cough, wheezing, and pleuritic chest pain, Abdomen/GI: Negative for abdominal pain, nausea, vomiting, diarrhea, and constipation, MS/Extremity: Negative for injury and deformity, Skin: Negative for injury, rash, and discoloration. 09:38 Neuro: Positive for headache. 09:38 All other systems are negative. Exam: 09:38 Constitutional: This is a well developed, well nourished patient who is awake, alert, ms3 and in no acute distress. Head/Face: Normocephalic, atraumatic. Neck: Trachea midline, no cervical lymphadenopathy. Supple, full range of motion without nuchal rigidity, or vertebral point tenderness. No Meningismus. Chest/axilla: Normal chest wall appearance and motion. Nontender with no deformity. Cardiovascular: Regular rate and rhythm with a normal S1 and S2. No gallops, murmurs, or rubs. Normal PMI, no JVD. No pulse deficits. Respiratory: Lungs have equal breath sounds bilaterally, clear to auscultation and percussion. No rales, rhonchi or wheezes noted. No increased work of breathing, no retractions or nasal flaring. Abdomen/GI: Soft, non-tender, with normal bowel sounds. No distension or tympany. No guarding or rebound. No evidence of tenderness throughout. Skin: Warm, dry with normal turgor. Normal color with no rashes, no lesions, and no evidence of cellulitis. MS/ Extremity: Pulses equal, no cyanosis. Neurovascular intact. Full, normal range of motion. Neuro: Awake and alert, GCS 15, oriented to person, place, time, and situation. Cranial nerves II-XII grossly intact. Motor strength 5/5 in all extremities. Sensory grossly intact. Cerebellar exam normal. Normal gait. Vital Signs: 09:31 Pulse 71; Resp 18; Temp 97.1(TE); Pulse Ox 100% on R/A; Weight 122.47 kg; Height 6 ft. ld1 1 in. ; Pain 10/10; 10:37 BP 138 / 78; Pulse 97; Resp 17; Pulse Ox 100% on R/A; kr3 09:31 Body Mass Index 35.62 (122.47 kg, 185.42 cm) ld1 09:31 Pain Scale: Adult ld1 MDM: 09:30 Patient medically screened. ms3 09:38 Differential diagnosis: intracerebral hemorrhage, neoplasm, tension headache. ms3 10:56 Data reviewed: vital signs, nurses notes, radiologic studies, CT scan, and as a result, ms3 I will discharge patient. I considered the following discharge prescriptions or medication management in the emergency department I discussed and recommended Over The Counter medications, Medications were administered in the Emergency Department. See MAR. Independent interpretation of the following test(s) in the Emergency Department CT Scan: My interpretation is CT head without contrast images reviewed by me do not demonstrate intracranial hemorrhage.. Counseling: I had a detailed discussion with the patient and/or guardian regarding: the historical points, exam findings, and any diagnostic results supporting the discharge/admit diagnosis, radiology results, the need for outpatient follow up, to return to the emergency department if symptoms worsen or persist or if there are any questions or concerns that arise at home. ED course: Discussed CT scan findings with patient. Patient to follow-up with Dr. Sanders in 2 to 3 days. Patient understands and agrees with plan. All questions were answered. Return precautions discussed include worsening symptoms, or any other concerns. On reevaluation patient is alert and orient x4, no apparent distress, nontoxic, ambulatory in emergency department, speaking full sentences. 07/25 09:33 Order name: CT Head Brain wo Cont ms3 07/25 09:49 Order name: CT; Complete Time: 10:53 EDMS Administered Medications: 09:56 Drug: Ibuprofen PO 600 mg Route: PO; kr3 11:14 Follow up: Response: No adverse reaction kr3 Disposition Summary: 07/25/22 10:55 Discharge Ordered Location: Home ms3 Condition: Stable ms3 Diagnosis - Headache ms3 - Elevated blood-pressure reading, without diagnosis of hypertension ms3 Followup: ms3 - With: Yaniv Llanos MD - When: 2 - 3 days - Reason: Recheck today's complaints Discharge Instructions: - Discharge Summary Sheet ms3 - General Headache Without Cause ms3 Forms: - Medication Reconciliation Form ms3 - Thank You Letter ms3 - Antibiotic Education ms3 - Prescription Opioid Use ms3 Prescriptions: - Ibuprofen 600 mg Oral Tablet - take 1 tablet by ORAL route every 6 hours As needed take with food; 30 tablet; ms3 Refills: 0, Product Selection Permitted Signatures: Dispatcher [employer] EDMS Rickey Xie DO DO ms3 Marisel Moya RN RN ld1 Sue Cisneros RN RN kr3 Corrections: (The following items were deleted from the chart) 09:39 09:30 . ms3 ms3
== END 2022-07-25 11:15 | disposition home or self-care (01) ==
LOC: ER 09:15
DX: R51.9 Headache, unspecified (principal); R03.0 Elevated blood-pressure reading, without diagnosis of hypertension
CPT/HCPCS: 70450; 99283

== ENCOUNTER 2022-11-06 14:05 | Emergency (ER) | payer BC, OTHER ==
--- OUTSIDE RECORDS SUMMARY | 2022-11-06 14:09 | XMS REPORT | Continuity of Care Document ---
:[address] [facility] t Address [address] [facility] [address] [place] [address] Care Team Providers Name Role Phone PCP, PATIENT DOES NOT HAVE A Primary Care Physician UnavailKiran Evans Attending Clinician Doctor Unassigned, [place] Attending Clinician Unavailable Carla Melendrez MD Attending Clinician CARLA MELENDREZ Attending Clinician Unavailable Carol Tomas Attending Clinician CAROL CURIEL Attending Clinician Unavailable CAROL CURIEL Admitting Clinician Unavailable Payers Payer Name Policy Type Policy Number Effective Date Expiration Date Suzy KEMP [id number] 2008 ADMINISTRATION 00:00:00 Problems Condition Condition Condition Status Onset Resolution Last Treating Co mments Source Name Details Category Date Date Treatment Clinician Date No known No known Disease Unive rs active active ity of problems problems [facility] Allergies, Adverse Reactions, Alerts Allergy Allergy Status Severity Reaction(s) Onset Inactive Treating Comm ents Source Name Type Date Date Clinician NO KNOWN Drug Active Univers ALLERGIE Class ity of S [facility] Social History Social Habit Start Date Stop Date Quantity Comments Source Exposure to Not sure University of SARS-CoV-2 [facility] (event) [place] Alcohol intake 2021-05-11 2021-05-11 Lifetime University of 00:00:00 00:00:00 non-drinker [facility] (finding) [place] Tobacco use and 2021-02-25 2021-02-25 Never used Universit y of exposure 00:00:00 00:00:00 [facility] Sex Ass[birth year] Universit y of 00:00:00 00:00:00 [facility] Smoking Status Start Date Stop Date Source Never smoker [facility] Medications Ordered Filled Start Stop Current Ordering Indication Dosage Frequency Signature Comments Components Source Medication Medication Date Date Medication? Clinician (SIG) Name Name No known 2020-05 No Univers medications 2-22 ity of 15:04: [address] No known 2020-05 No Univers medications 2-22 ity of 15:04: [address] No known 2020-05 No Univers medications 2-22 ity of 15:04: [address] No known 2020-05 No Univers medications 2-22 ity of 15:04: [address] No known 2020-05 No Univers medications 0-27 ity of 15:54: [address] No known 2020-05 No Univers medications 0-27 ity of 15:54: [address] Vital Signs Vital Name Observation Time Observation Value Comments Source Body height 2021-03-16 20:54:00 185.4 cm [facility] Body weight 2021-03-16 20:54:00 124.739 kg [facility] BMI 2021-03-16 20:54:00 36.28 kg/m2 [facility] Procedures Procedure Date / Time Performed Performing Clinician Belén e DISABILITY/FMLA 2021-06-08 06:01:00 Doctor Unassigned, No [facility] DISABILITY/FMLA 2021-05-19 06:01:00 Doctor Unassigned, No [facility] XR KNEE 3 VW LEFT 2021-05-11 21:57:00 Carla Melendrez [facility] Encounters Start End Encounter Admission Attending Care Care Encounter Source Date/Time Date/Time Type Type Clinicians Facility Department ID 2022-09-08 2022-09-08 Ambulatory MHIE GRISELDA [id number] 16:15:00 16:15:00 Pre-Reg Neurology 01 avi Cobb 2022-09-08 2022-09-08 Outpatient JOHN LOPEZ [id number] 11:15:00 11:15:00 avi Cobb 2022-09-08 2022-09-08 Outpatient JOSÉ Petersen [facility] [id number] 11:15:00 11:15:00 Kiranbee Quintana 2021-06-08 2021-06-08 Orders Doctor RADHA [id number] Univers 00:00:00 00:00:00 Only Unassigned, FRANCO [id number] ity of [place] [facility] [id number] Julian as [phone] [address] 2021-05-19 2021-05-19 Orders Doctor RADHA [id number] Univers 00:00:00 00:00:00 Only Unassigned, FRANCO [id number] ity of [place] [facility] [id number] Julian as [phone] [address] 2021-05-17 2021-05-17 Telephone [facility] [id number] Univers 00:00:00 00:00:00 Carla L HEALTH [id number] it y of [place] [id number] Julian as ZACKARY?BLEA [id number] [facility] [address] [place] MEDICAL OFF[address] [facility] 2021-05-11 2021-05-11 [facility] [id number] Univers 15:15:00 23:59:00 Encounter Carla Steen HEALTH [id number] ity of [place] [id number] Julian as ZACKARY?BLEA [phone] [facility] [address] MEDICAL OFFICE [facility] 2021-05-11 2021-05-11 Outpatient R [facility] [id number] Univers 14:45:00 16:38:04 CARLA ity [facility] 2021-03-18 2021-03-18 Outpatient R [facility] [id number] Univers 09:30:00 09:30:00 CARLA itrambo [facility] 2021-03-16 2021-03-16 [facility] [id number] Univers 15:55:00 23:59:00 Encounter Carla Wheeler [id number] ity of [place] [id number] Julian as Zackary?Blea [phone] [place] [address] [facility] Office [facility] 2021-03-16 2021-03-16 [facility] [id number] Univers 15:48:30 16:47:16 Visit Carla WHEELER [id number] it y of [place] [id number] Julian as ZACKARY?BLEA [id number] Me [place] [address] [facility] OFFICE [facility] 2021-03-16 2021-03-16 [facility] [id number] Univers 15:45:00 16:47:16 CARLA mueller [facility] 2021-03-16 2021-03-16 Letter [facility] [id number] Univers 00:00:00 00:00:00 (Out) Carla Wheeler [id number] it y of [place] [id number] Julian as Zackary?Blea [phone] [place] [address] [facility] Office [facility] 2021-02-25 2021-02-25 Office [facility] [id number] Univers 09:23:59 09:51:08 Visit Carla Wheeler [id number] it y of [place] [id number] Julian as Zackary?Blea [phone] [place] [address] [facility] Office [facility] 2021-02-25 2021-02-25 [facility] [id number] Univers 09:00:00 09:51:08 CARLA muellre [facility] 2021-02-23 2021-02-23 Emergency [facility] [id number] Univers 18:25:00 22:26:00 Carol Temo [place] [id number] [id number] [phone] [facility] [address] [place] 2021-02-23 2021-02-[address] [facility] ERT [id number] [facility] 18:25:00 22:26:00 CAROL mueller [facility] Results This patient has no known results.
[2022-11-06] MEDS ORDERED: IBUPROFEN 200 MG TAB PO ONE (14:43)
[2022-11-06] MEDS ORDERED: IBUPROFEN 400 MG TAB ONE (14:43)
[2022-11-06 15:10] LABS: SARS-CoV-2 Antigen Rapid Res Negative (Negative)
[2022-11-06 15:28] LABS: Specific Gravity 1.029 (1.005-1.030); Urine Bacteria >50 /HPF (<20); Urine Bilirubin NEGATIVE (Negative); Urine Blood Trace (Negative); Urine Clarity Extremely Turbid (Clear); Urine Color Yellow (Yellow); Urine Glucose NEGATIVE (Negative); Urine Mucus 1+ /HPF (None Seen); Urine Protein 2+ (Negative); Urine Urobilinogen 1+ (Normal); Urine pH 5.5 (5.0-7.0)
[2022-11-06] MEDS ORDERED: NA CHLORIDE 0.9% 1,000 ML ONE ×2 (16:52→17:35)
[2022-11-06 17:03] LABS: Absolute Lymphocytes (CBC) 0.9 K/uL (0.7-4.9); Hematocrit 45.4 % (39.6-49.0); Lymphocytes % 3.1 % (15.3-44.8); MCV 88.7 fL (80-100); MPV 7.6 fL (7.6-11.3); RBC Red Blood Cell Count 5.11 M/uL (4.33-5.43)
[2022-11-06 17:09] LABS: Protime INR 1.4
[2022-11-06 17:20] LABS: Albumin 3.8 g/dL (3.4-5.0); Bilirubin Total 1.1 mg/dL (0.2-1.0); Potassium 3.3 mEq/L (3.5-5.1); Protein, Total 9.6 g/dL (6.4-8.2)
--- NOTE | 2022-11-06 18:22 | RAD REPORT ---
EXAM DESCRIPTION: CT - Abdomen Pelvis W Contrast - 11/06/2022 5:52 pm CLINICAL HISTORY: FLANK PAIN COMPARISON: No comparisons TECHNIQUE: Thin cut axial CT imaging of the abdomen and pelvis was performed following intravenous a dministration of 100 mL Isovue 300. Multiplanar reformats were generated and reviewed. All CT scans are performed using dose optimization technique as appropriate and may include automated exposure control or mA/KV adjustment according to patient size. FINDINGS: No suspicious findings in the lung bases. The liver shows diffuse hepatic parenchymal hypoattenuation suggesting steatosis. Spleen, adrenal gla nds, and pancreas show no suspicious findings. Single cholesterol gallstone in the gallbladder. No ev idence of intra or extrahepatic biliary ductal dilation. Symmetric renal function is seen with no hydronephrosis or suspicious renal mass. No dilated bowel loops or bowel wall thickening. No free air, free fluid or inflammatory stranding. N o hernia, mass or bulky lymphadenopathy. The urinary bladder is without significant finding. No suspicious bony findings. IMPRESSION: No acute intra-abdominal process. Incidental findings as above, including hepatic steatosis and a single cluster containing gallstone.
--- NOTE | 2022-11-06 18:28 | EDPHYS ---
Physician Documentation [facility] Name: Guy Joe Jr Age: 37 yrs Sex: Male : 1985 Arrival Date: 11/06/2022 Time: 14:05 Bed 9 Private MD: Mariano White E ED Physician Ned Mccarty HPI: 11/06 14:48 This 37 yrs old Male presents to ER via Wheelchair with complaints of Low Back kb Pain, Fever. 14:48 The patient presents with sore throat. The patient describes throat pain as constant. kb Onset: The symptoms/episode began/occurred yesterday. Severity of symptoms: At their worst the symptoms were moderate, in the emergency department the symptoms are unchanged. Modifying factors: The symptoms are alleviated by nothing, the symptoms are aggravated by swallowing, Patient's oral intake status: limited fluid intake, limited food intake. Associated signs and symptoms: Pertinent positives: fever, flu-like symptoms, myalgias. The patient has not experienced similar symptoms in the past. The patient has not recently seen a physician. Historical: - Allergies: 14:11 No Known Allergies; aa5 - PMHx: 14:11 Asthma; aa5 - PSHx: 14:11 Appendectomy; aa5 - Immunization history:: Adult Immunizations unknown. - Social history:: Smoking status: Patient denies any tobacco usage or history of. ROS: 14:44 Abdomen/GI: Negative for abdominal pain, nausea, vomiting, diarrhea, and constipation. kb 14:44 Constitutional: Positive for body aches, chills, fatigue, fever, malaise. 14:44 ENT: Positive for sore throat. 14:44 All other systems are negative. Exam: 14:44 Constitutional: This is a well developed, well nourished patient who is awake, alert, kb and in no acute distress. Head/Face: Normocephalic, atraumatic. Cardiovascular: Regular rate and rhythm with a normal S1 and S2. No gallops, murmurs, or rubs. No pulse deficits. Respiratory: Respirations even and unlabored. No increased work of breathing. Talking in full sentences Abdomen/GI: Soft, non-tender. No distention Skin: Warm, dry with normal turgor. Normal color. MS/ Extremity: Pulses equal, no cyanosis. Neurovascular intact. Full, normal range of motion. Neuro: Awake and alert, GCS 15, oriented to person, place, time, and situation. Moves all extremities. Normal gait. 14:44 ENT: Posterior pharynx: Airway: normal, no evidence of obstruction, Tonsils: bilaterally enlarged, with erythema, Uvula: normal, midline, swelling, that is moderate, erythema, that is moderate, exudate, that is mild. Vital Signs: 14:12 BP 109 / 67; Pulse 123; Resp 25 S; Temp 101.6(O); Pulse Ox 97% on R/A; Weight 122.47 kg aa5 (R); Height 6 ft. 1 in. (R); 15:25 BP 120 / 76; Pulse 105; Resp 20; Pulse Ox 99% on R/A; mb9 16:19 BP 131 / 98; Pulse 118; Resp 20; Temp 99.1; Pulse Ox 96% on R/A; mb9 17:12 BP 120 / 78; Pulse 104; Resp 19; Pulse Ox 95% on R/A; mb9 18:44 BP 121 / 74; Pulse 100; Resp 18; Pulse Ox 100% on R/A; mb9 14:12 Body Mass Index 35.62 (122.47 kg, 185.42 cm) aa5 MDM: 14:11 Patient medically screened. kb 14:48 Data reviewed: vital signs, nurses notes. kb 15:40 ED course: Pt educated on diagnostic results. ibuprofen that was previously ordered was kb still sitting at bedside. I opened ibuprofen and gave it to pt. Will monitor pt for a while longer to make sure vital signs improve. 16:30 Differential diagnosis: strep, flu, covid, uri. Counseling: I had a detailed discussion kb with the patient and/or guardian regarding: the historical points, exam findings, and any diagnostic results supporting the discharge/admit diagnosis, lab results, the need for outpatient follow up, a family practitioner, to return to the emergency department if symptoms worsen or persist or if there are any questions or concerns that arise at home. ED course: Pt states he is ready to go home. Does not want to stay any longer. 11/06 14:23 Order name: Flu; Complete Time: 15:09 kb 11/06 14:23 Order name: Strep kb 11/06 14:23 Order name: SARS RAPID; Complete Time: 15:12 kb 11/06 14:23 Order name: Urinalysis w/ reflexes; Complete Time: 15:31 kb 11/06 15:31 Order name: Urine Culture EDMS 11/06 16:33 Order name: Blood Culture Adult (2) kb 11/06 16:33 Order name: CBC with Diff; Complete Time: 17:08 kb 11/06 16:33 Order name: CMP; Complete Time: 17:21 kb 11/06 16:33 Order name: Lactate w/ 2H reflex if indic.; Complete Time: 17:21 kb 11/06 16:33 Order name: Protime (+inr); Complete Time: 17:13 kb 11/06 16:33 Order name: Ptt, Activated; Complete Time: 17:13 kb 11/06 17:09 Order name: CT Abd/Pelvis - IV Contrast Only; Complete Time: 18:27 kb 11/06 16:33 Order name: IV Saline Lock - Large Bore; Complete Time: 16:57 kb 11/06 16:33 Order name: Labs collected and sent; Complete Time: 16:57 kb 11/06 16:33 Order name: O2 Per Protocol; Complete Time: 16:42 kb 11/06 16:33 Order name: O2 Sat Monitoring; Complete Time: 16:42 kb 11/06 16:33 Order name: Vital Signs; Complete Time: 16:42 kb Administered Medications: 14:29 Drug: Ibuprofen PO 600 mg Route: PO; mb9 16:43 Follow up: Response: No adverse reaction mb9 16:57 Drug: NS 0.9% IV 1000 ml Route: IV; Rate: 1000 ml; Site: right antecubital; mb9 17:58 Follow up: Response: No adverse reaction; IV Status: Completed infusion mb9 17:29 Drug: NS 0.9% IV 1000 ml Route: IV; Rate: 1000 ml; Site: left forearm; mb9 18:44 Follow up: Response: No adverse reaction; IV Status: Completed infusion mb9 18:43 Drug: Amoxicillin-Clavulanate PO 875 mg Route: PO; mb9 18:43 Follow up: Response: No adverse reaction mb9 Disposition Summary: 11/06/22 18:27 Discharge Ordered Location: Home kb Condition: Stable kb Diagnosis - UTI/ Urinary tract infection, site not specified kb - Streptococcal pharyngitis kb Followup: kb - With: Emergency Department - When: As needed - Reason: Worsening of condition Followup: kb - With: Private Physician - When: 2 - 3 days - Reason: Recheck today's complaints, Continuance of care, Re-evaluation by your physician Discharge Instructions: - Discharge Summary Sheet kb - Strep Throat, Adult, [id number] kb - Urinary Tract Infection, Adult, [id number] kb Forms: - Work release form kb - Medication Reconciliation Form kb - Thank You Letter kb - Antibiotic Education kb - Prescription Opioid Use kb Prescriptions: - Augmentin 875-125 mg Oral Tablet - take 1 tablet by ORAL route every 12 hours for 10 days; 20 tablet; Refills: 0, kb Product Selection Permitted Signatures: Dispatcher [employer] EDMS Teresita Clement, HEALTH SAFETY MANAGER-C HEALTH SAFETY MANAGER-Vania Black, RN RN aa5 Shanti Mansfield RN RN mb9 Corrections: (The following items were deleted from the chart) 14:12 14:11 PMHx: None; aa5 aa5
--- NOTE | 2022-11-06 18:28 | ER ---
Nurse's Notes [facility] Name: Guy Joe Jr Age: 37 yrs Sex: Male : 1985 Arrival Date: 11/06/2022 Time: 14:05 Bed 9 Private MD: aMriano White E Diagnosis: UTI/ Urinary tract infection, site not specified;Streptococcal pharyngitis Presentation: 11/06 14:12 Chief complaint: Patient states: body aches, sore throat, fever that began yesterday. aa5 Pt reports pain is worse to lower back. Coronavirus screen: fever. Ebola Screen: Patient denies travel to an Ebola-affected area in the 21 days before illness onset. Initial Sepsis Screen: Does the patient meet any 2 criteria? Temp <36.0*C (96.8*F)) or > 38.3*C (100.9*F). HR > 90 bpm. Yes Does the patient have a suspected source of infection? Yes:. Risk Assessment: Do you want to hurt yourself or someone else? Patient reports no desire to harm self or others. Onset of symptoms was October 2022. 14:12 Method Of Arrival: Wheelchair aa5 14:12 Acuity: LOW 3 aa5 Historical: - Allergies: 14:11 No Known Allergies; aa5 - PMHx: 14:11 Asthma; aa5 - PSHx: 14:11 Appendectomy; aa5 - Immunization history:: Adult Immunizations unknown. - Social history:: Smoking status: Patient denies any tobacco usage or history of. Screenin:11 [facility] ED Fall Risk Assessment (Adult) History of falling in the last 3 months, mb9 including since admission No falls in past 3 months (0 pts) Confusion or Disorientation No (0 pts) Intoxicated or Sedated No (0 pts) Impaired Gait No (0 pts) Mobility Assist Device Used No (0 pt) Altered Elimination No (0 pt) Score/Fall Risk Level 0 - 2 = Low Risk Oriented to surroundings, Maintained a safe environment, Educated pt \T\ family on fall prevention, incl call for assistance when getting out of bed. Abuse screen: Denies threats or abuse. Nutritional screening: No deficits noted. Tuberculosis screening: No symptoms or risk factors identified. Assessment: 14:30 General: Appears uncomfortable, Behavior is anxious. Pain: Complains of pain in whole mb9 body Pain does not radiate. Pain currently is 8 out of 10 on a pain scale. Quality of pain is described as aching. Neuro: Moses Agitation-Sedation Scale (RASS): 0 - Alert and Calm Level of Consciousness is awake, alert, obeys commands, Oriented to person, place, time, situation, Appropriate for age. Respiratory: Reports cough that is Airway is patent Respiratory effort is even, unlabored, Respiratory pattern is regular, symmetrical. GI:. EENT: Throat is reddened. Derm: Skin is pink, warm \T\ dry. Musculoskeletal: Range of motion: intact in all extremities. 15:25 Reassessment: No changes from previously documented assessment. Patient and/or family mb9 updated on plan of care and expected duration. Pain level reassessed. Patient is alert, oriented x 3, equal unlabored respirations, skin warm/dry/pink. 16:20 Reassessment: Patient and/or family updated on plan of care and expected duration. Pain mb9 level reassessed. Patient is alert, oriented x 3, equal unlabored respirations, skin warm/dry/pink. Patient states feeling better. Patient states symptoms have improved. 18:44 Reassessment: No changes from previously documented assessment. Patient and/or family mb9 updated on plan of care and expected duration. Pain level reassessed. Patient is alert, oriented x 3, equal unlabored respirations, skin warm/dry/pink. Patient states feeling better. Patient states symptoms have improved. Vital Signs: 14:12 BP 109 / 67; Pulse 123; Resp 25 S; Temp 101.6(O); Pulse Ox 97% on R/A; Weight 122.47 kg aa5 (R); Height 6 ft. 1 in. (R); 15:25 BP 120 / 76; Pulse 105; Resp 20; Pulse Ox 99% on R/A; mb9 16:19 BP 131 / 98; Pulse 118; Resp 20; Temp 99.1; Pulse Ox 96% on R/A; mb9 17:12 BP 120 / 78; Pulse 104; Resp 19; Pulse Ox 95% on R/A; mb9 18:44 BP 121 / 74; Pulse 100; Resp 18; Pulse Ox 100% on R/A; mb9 14:12 Body Mass Index 35.62 (122.47 kg, 185.42 cm) aa5 ED Course: 14:07 Patient arrived in ED. im 14:07 Mariano White MD is Private Physician. im 14:09 Teresita Clement [facility]-C [facility] kb 14:09 Ned Mccarty MD is Attending Physician. kb 14:11 Arm band placed on. aa5 14:14 Triage completed. aa5 14:15 Bed in low position. Call light in reach. Side rails up X 1. Client placed on mb9 continuous cardiac and pulse oximetry monitoring. NIBP monitoring applied. 14:17 Shanti Mansfield, RN is Primary Nurse. mb9 16:56 First set of blood cultures drawn. mb9 16:57 CBC with Diff Sent. mb9 16:57 CMP Sent. mb9 16:57 Lactate w/ 2H reflex if indic. Sent. mb9 16:57 Protime (+inr) Sent. mb9 16:57 Ptt, Activated Sent. mb9 16:57 Inserted saline lock: 20 gauge in right antecubital area, using aseptic technique. mb9 17:13 Second set of blood cultures drawn. mb9 17:25 Blood Culture Adult (2) Sent. mb9 17:29 Inserted saline lock: 20 gauge in left forearm, using aseptic technique. mb9 17:30 No provider procedures requiring assistance completed. mb9 17:54 CT Abd/Pelvis - IV Contrast Only In Process Unspecified. EDMS 18:44 IV discontinued, intact, bleeding controlled, No redness/swelling at site. Pressure mb9 dressing applied. Administered Medications: 14:29 Drug: Ibuprofen PO 600 mg Route: PO; mb9 16:43 Follow up: Response: No adverse reaction mb9 16:57 Drug: NS 0.9% IV 1000 ml Route: IV; Rate: 1000 ml; Site: right antecubital; mb9 17:58 Follow up: Response: No adverse reaction; IV Status: Completed infusion mb9 17:29 Drug: NS 0.9% IV 1000 ml Route: IV; Rate: 1000 ml; Site: left forearm; mb9 18:44 Follow up: Response: No adverse reaction; IV Status: Completed infusion mb9 18:43 Drug: Amoxicillin-Clavulanate PO 875 mg Route: PO; mb9 18:43 Follow up: Response: No adverse reaction mb9 Medication: 15:11 VIS not applicable for this client. mb9 Outcome: 18:27 Discharge ordered by MD. beck 18:44 Discharged to home ambulatory. mb9 18:44 Condition: stable 18:44 Discharge instructions given to patient, Instructed on discharge instructions, follow up and referral plans. Demonstrated understanding of instructions, follow-up care, medications, Prescriptions given X 1. 18:44 Patient left the ED. mb9 Signatures: Dispatcher [employer] EDNH Teresita Clement, TRUCK STRIKER-C TRUCK STRIKER-CkVania Sanford RN RN aa5 Shanti Mansfield RN RN mb9 Kailey Fitzpatrick Corrections: (The following items were deleted from the chart) 14:12 14:11 PMHx: None; paula mitchell
[2022-11-06] MEDS ORDERED: AMOX/K CLAV 875 MG TAB ONE (18:42)
[2022-11-06 19:13] VITALS: TEMP 99.1
[2022-11-06 19:16] VITALS: BP 121/74; O2SAT 100
== END 2022-11-06 18:44 | disposition home or self-care (01) ==
LOC: ER 14:05
DX: N39.0 Urinary tract infection, site not specified (principal); J02.0 Streptococcal pharyngitis; Z20.822 Contact with and (suspected) exposure to COVID-19
CPT/HCPCS: 96361; 87040 ×2; 87088; 85025; 81001; 87086; 36415; 85610; 87081; 83605; 85730; 80053; 87804 ×2; 74177; 96360; 99284; 87811; Q9967; J7030 ×2

== ENCOUNTER 2022-11-22 06:41 | Emergency (ER) | payer BC ==
--- OUTSIDE RECORDS SUMMARY | 2022-11-22 06:44 | XMS REPORT | Continuity of Care Document ---
:1985 Author Organization [facility] t Address [address] [place] [address] Care Team Providers Name Role Phone PCP, PATIENT DOES NOT HAVE A Primary Care Physician UnavailKiran Evans Attending Clinician Doctor Unassigned, [place] Attending Clinician Unavailable Carla Melendrez MD Attending Clinician CARLA MELENDREZ Attending Clinician Unavailable Carol Tomas Attending Clinician CAROL CURIEL Attending Clinician Unavailable CAROL CURIEL Admitting Clinician Unavailable Payers Payer Name Policy Type Policy Number Effective Date Expiration Date Suzy KEMP [id number] 2008 ADMINISTRATION 00:00:00 Problems Condition Condition Condition Status Onset Resolution Last Treating Co mments Source Name Details Category Date Date Treatment Clinician Date No known No known Disease Unive rs active active ity of problems problems [facility] Allergies, Adverse Reactions, Alerts Allergy Allergy Status Severity Reaction(s) Onset Inactive Treating Comm ents Source Name Type Date Date Clinician NO KNOWN Drug Active Univers ALLERGIE Class ity of S [facility] Social History Social Habit Start Date Stop Date Quantity Comments Source Exposure to Not sure University of SARS-CoV-2 [facility] (event) [place] Alcohol intake 2021-05-11 2021-05-11 Lifetime University of 00:00:00 00:00:00 non-drinker [facility] (finding) [place] Tobacco use and 2021-02-25 2021-02-25 Never used Universit y of exposure 00:00:00 00:00:00 [facility] Sex Ass[birth year] Universit y of 00:00:00 00:00:00 [facility] Smoking Status Start Date Stop Date Source Never smoker [facility] Medications Ordered Filled Start Stop Current Ordering Indication Dosage Frequency Signature Comments Components Source Medication Medication Date Date Medication? Clinician (SIG) Name Name No known 2020-05 No Univers medications 2-22 ity of 15:04: [address] No known 2020-05 No Univers medications 2-22 ity of 15:04: [address] No known 2020-05 No Univers medications 2-22 ity of 15:04: [address] No known 2020-05 No Univers medications 2-22 ity of 15:04: [address] No known 2020-05 No Univers medications 0-27 ity of 15:54: [address] No known 2020-05 No Univers medications 0-27 ity of 15:54: [address] Vital Signs Vital Name Observation Time Observation Value Comments Source Body height 2021-03-16 20:54:00 185.4 cm [facility] Body weight 2021-03-16 20:54:00 124.739 kg [facility] BMI 2021-03-16 20:54:00 36.28 kg/m2 [facility] Procedures Procedure Date / Time Performed Performing Clinician Belén forrest DISABILITY/FMLA 2021-06-08 06:01:00 Doctor Unassigned, No Univer [facility] of [facility] DISABILITY/FMLA 2021-05-19 06:01:00 Doctor Unassigned, No Univer [facility] of [facility] XR KNEE 3 VW LEFT 2021-05-11 21:57:00 Carla Melendrez [facility] Encounters Start End Encounter Admission Attending Care Care Encounter Source Date/Time Date/Time Type Type Clinicians Facility Department ID 2022-09-08 2022-09-08 Ambulatory [facility] [id number] 16:15:00 16:15:00 Pre-Reg Neurology 01 avi [place] [facility] 2022-09-08 2022-09-08 Ambulatory [facility]IE MNA [id number] 16:15:00 16:15:00 Pre-Reg Neurology 01 l Pb [place] 2022-09-08 2022-09-08 Outpatient [facility]IE BRIANNA [id number] 11:15:00 11:15:00 01 avi [place] 2022-09-08 2022-09-08 Outpatient JOSÉ PetersenSCHDALIA [id number] 11:15:00 11:15:00 Kiran Quintana 2021-06-08 2021-06-08 Orders Doctor RADHA [id number] Univers 00:00:00 00:00:00 Only Unassigned, FRANCO [id number] ity of [place] [facility] [id number] Julian as [phone] [address] 2021-05-19 2021-05-19 Orders Doctor RADHA [id number] Univers 00:00:00 00:00:00 Only Unassigned, FRANCO [id number] ity of [place] [facility] [id number] Julian as [phone] [address] 2021-05-17 2021-05-17 Telephone [facility] [id number] Univers 00:00:00 00:00:00 Carla Localist [id number] it y of [place] [id number] Julian as ZACKARY?BLEA [phone] [facility] [address] [place] MEDICAL OFFICE [facility] 2021-05-11 2021-05-11 [facility] [id number] Univers 15:15:00 23:59:00 Encounter Carla L [employer] [id number] ity of [place] [id number] Julian as ZACKARY?BLEA [phone] [facility] [address] [place] MEDICAL OFFICE [facility] 2021-05-11 2021-05-11 [facility] [id number] Univers 14:45:00 16:38:04 CARLA mueller [facility] 2021-03-18 2021-03-18 [facility] [id number] Univers 09:30:00 09:30:00 [facility] 2021-03-16 2021-03-16 [facility] [id number] Univers 15:55:00 23:59:00 Encounter Carla Wheelre [id number] ity of [place] [id number] Julian as Zackary?Blea [phone] [place] [address] [facility] Office [facility] 2021-03-16 2021-03-16 Office [facility] [id number] Univers 15:48:30 16:47:16 Visit Carla WHEELER [id number] it y of [place] [id number] Julian as ZACKARY?BLEA [phone] [place] [address] [facility] OFFICE [facility] 2021-03-16 2021-03-16 [facility] [id number] Univers 15:45:00 16:47:16 [facility] 2021-03-16 2021-03-16 Letter [facility] [id number] Univers 00:00:00 00:00:00 (Out) Carla Wheeler [id number] it y of [place] [id number] Julian as Zackary?Blea [phone] [place] [address] [facility] Office [facility] 2021-02-25 2021-02-25 Office [facility] [id number] Univers 09:23:59 09:51:08 Visit Carla Wheeler [id number] it y of [place] [id number] Julian as Zackary?Blea [phone] [place] [address] [facility] Office [facility] 2021-02-25 2021-02-25 [facility] [id number] Univers 09:00:00 09:51:08 [facility] 2021-02-23 2021-02-23 Emergency [facility] [id number] Univers 18:25:00 22:26:00 Carol [place] [id number] i ty of [place] [id number] [facility] [phone] [place] [id number] [place] 2021-02-23 2021-02-23 Emergency X [facility] ERT [id number] Univers 18:25:00 22:26:00 CAROL mueller [facility] Results This patient has no known results.
[2022-11-22] MEDS ORDERED: NA CHLORIDE 0.9% 1,000 ML ONE (07:19)
[2022-11-22] MEDS ORDERED: KETOROLAC 30 MG/ML INJ ONE (07:19)
[2022-11-22] MEDS ORDERED: ONDANSETRON 4 MG/2 ML VIAL ONE (07:19)
[2022-11-22 07:29] LABS: Absolute Lymphocytes (CBC) 0.5 K/uL (0.7-4.9); Hematocrit 47.3 % (39.6-49.0); MCV 88.9 fL (80-100); MPV 7.7 fL (7.6-11.3); RBC Red Blood Cell Count 5.32 M/uL (4.33-5.43)
[2022-11-22 07:30] LABS: Specific Gravity > 1.030 (1.005-1.030); Urine Bacteria None Seen /HPF (<20); Urine Bilirubin NEGATIVE (Negative); Urine Blood Negative (Negative); Urine Clarity Extremely Turbid (Clear); Urine Color Yellow (Yellow); Urine Glucose NEGATIVE (Negative); Urine Mucus 1+ /HPF (None Seen); Urine Protein 1+ (Negative); Urine RBC <5 /HPF (None Seen); Urine Urobilinogen Normal (Normal); Urine pH 6.5 (5.0-7.0)
--- NOTE | 2022-11-22 07:35 | RAD REPORT ---
EXAM DESCRIPTION: CT - Abdomen Pelvis Wo Contrast - 11/22/2022 7:23 am CLINICAL HISTORY: L flank pain COMPARISON: Abdomen Pelvis W Contrast dated 11/06/2022 TECHNIQUE: Thin cut axial CT imaging of the abdomen and pelvis was performed without IV contrast. Mu ltiplanar reformats were generated and reviewed. All CT scans are performed using dose optimization technique as appropriate and may include automated exposure control or mA/KV adjustment according to patient size. FINDINGS: Patchy peribronchovascular ground-glass opacities in the central left lower lobe, and thro ughout the left lingula. Diffuse hepatic parenchymal hypoattenuation suggesting steatosis. The adrenal glands, spleen, and fernandez creas show no suspicious findings. Cholesterol containing solitary gallstone near the neck. No eviden ce of intra or extrahepatic biliary ductal dilation. Symmetric renal contour, without suspicious parenchymal findings within limits of noncontrast techniq ue. No evidence of radiopaque calculi or hydroureteronephrosis. No dilated bowel loops or bowel wall thickening. Fluid filling of nondistended small and large bowel loops, nonspecific, but suggests enterocolitis or diarrheal state. Suture material seen along the cec al base, may relate to sequelae of prior cholecystectomy. No free air, free fluid or inflammatory str anding. No hernia, mass or bulky lymphadenopathy. The urinary bladder is suboptimally distended limit ing evaluation. No suspicious bony findings. IMPRESSION: Fluid filling of nondistended small and large bowel loops, nonspecific, may suggest infe ctious or inflammatory enterocolitis or diarrheal state. Single cholesterol containing gallstone.
[2022-11-22 07:43] LABS: Albumin 4.3 g/dL (3.4-5.0); Bilirubin Total 0.9 mg/dL (0.2-1.0); Protein, Total 9.8 g/dL (6.4-8.2)
[2022-11-22] MEDS ORDERED: MORPHINE 4 MG/ML SYR ONE (08:30)
[2022-11-22 08:41] LABS: Platelet Estimate INCR
[2022-11-22 08:42] LABS: Blood Morphology Comment NOTED (NOT SEEN); Stomatocytes 1+
[2022-11-22 09:00] LABS: Protime INR 1.07
--- NOTE | 2022-11-22 10:15 | EDPHYS ---
Physician Documentation [facility] Name: Guy Joe Jr Age: 37 yrs Sex: Male : 1985 Arrival Date: 11/22/2022 Time: 06:41 Bed 13 Private MD: ED Physician Rickey Xie HPI: 11/22 07:08 This 37 yrs old Male presents to ER via Ambulatory with complaints of Possible ms3 Kidney Stone. 07:08 37-year-old male with past medical history of asthma presents for left flank pain that ms3 began yesterday. Patient states he then developed nausea, vomiting, diarrhea last night. Patient states his pain is 10/10 located in his left flank. Patient denies alleviating or inciting factors. Patient notes he recently was on antibiotics for urinary tract infection and strep throat.. Historical: - Allergies: 07:03 No Known Allergies; ld1 - PMHx: 07:03 Asthma; ld1 - PSHx: 07:03 Appendectomy; ld1 - Immunization history:: Adult Immunizations up to date, Client reports receiving the 2nd dose of the Covid vaccine. - Social history:: Smoking status: Patient denies any tobacco usage or history of. Patient/guardian denies using alcohol. ROS: 07:08 Constitutional: Negative for fever, and chills. Neck: Negative for injury, pain, and ms3 swelling, Cardiovascular: Negative for chest pain, and palpitations. Respiratory: Negative for shortness of breath, cough, wheezing, and pleuritic chest pain, Abdomen/GI: Negative for abdominal pain, nausea, vomiting, diarrhea, and constipation. 07:08 Skin: Negative for injury, rash, and discoloration. 07:08 Back: Positive for flank pain, on the left. 07:08 All other systems are negative. Exam: 07:08 Constitutional: This is a well developed, well nourished patient who is awake, alert, ms3 and in no acute distress. Head/Face: Normocephalic, atraumatic. Neck: Trachea midline, no cervical lymphadenopathy. Supple, full range of motion without nuchal rigidity, or vertebral point tenderness. No Meningismus. Chest/axilla: Normal chest wall appearance and motion. Nontender with no deformity. Cardiovascular: Regular rate and rhythm with a normal S1 and S2. No gallops, murmurs, or rubs. Normal PMI, no JVD. No pulse deficits. Respiratory: Lungs have equal breath sounds bilaterally, clear to auscultation and percussion. No rales, rhonchi or wheezes noted. No increased work of breathing, no retractions or nasal flaring. 07:08 Abdomen/GI: Inspection: abdomen appears normal, Bowel sounds: normal, Palpation: abdomen is soft and non-tender. 07:08 Back: pain, is absent, CVA tenderness, that is moderate, is noted on the left. 09:09 ECG was reviewed by the Attending Physician. ms3 Vital Signs: 07:02 Pulse 125; Resp 22; Temp 98.3(O); Pulse Ox 98% on R/A; Weight 122.47 kg; Height 6 ft. 1 ld1 in. ; Pain 10/10; 07:04 BP 111 / 87; ld1 09:10 BP 118 / 78; Pulse 95; Resp 18; Pulse Ox 97% on R/A; ko1 10:00 BP 121 / 76; Pulse 92; Resp 15; Pulse Ox 99% ; ko1 07:02 Body Mass Index 35.62 (122.47 kg, 185.42 cm) ld1 07:02 Pain Scale: Adult ld1 MDM: 07:07 Patient medically screened. ms3 07:08 Differential diagnosis: nephrolithiasis, pyelonephritis, UTI. ms3 13:12 Data reviewed: vital signs, nurses notes, lab test result(s), EKG, radiologic studies, ms3 and as a result, I will discharge patient. I considered the following discharge prescriptions or medication management in the emergency department Medications were administered in the Emergency Department. See MAR. Independent interpretation of the following test(s) in the Emergency Department EKG: See my EKG interpretation above. Independent interpretation of the following test(s) in the Emergency Department Rhythm Strip Interpretation Rate: 91BPM Rhythm: regular. Care significantly affected by the following chronic conditions: Asthma. Counseling: I had a detailed discussion with the patient and/or guardian regarding: the historical points, exam findings, and any diagnostic results supporting the discharge/admit diagnosis, lab results, radiology results, the need for outpatient follow up, to return to the emergency department if symptoms worsen or persist or if there are any questions or concerns that arise at home. Response to treatment: the patient's symptoms have markedly improved after treatment, and as a result, I will discharge patient. Special discussion: I discussed with the patient/guardian in detail that at this point there is no indication for admission to the hospital. It is understood, however, that if the symptoms persist or worsen the patient needs to return immediately for re-evaluation. ED course: Discussed elevated white blood count with patient. Patient notes he has recently been on steroids. Strict return precautions discussed include fevers, chills, nausea, vomiting, worsening symptoms, or any other concerns. 11/22 07:08 Order name: CBC with Diff; Complete Time: 09:47 ms3 11/22 07:08 Order name: CMP; Complete Time: 08:05 ms3 11/22 07:08 Order name: Urinalysis w/ reflexes; Complete Time: 08:05 ms3 11/22 07:39 Order name: Manual Differential; Complete Time: 09:47 EDMS 11/22 08:05 Order name: Blood Culture Adult (2) ms3 11/22 08:05 Order name: Lactate w/ 2H reflex if indic.; Complete Time: 09:47 ms3 11/22 08:05 Order name: Protime (+inr); Complete Time: 09:47 ms3 11/22 08:05 Order name: Ptt, Activated; Complete Time: 09:47 ms3 11/22 07:08 Order name: CT Abd/Pelvis - Without Contrast; Complete Time: 08:05 ms3 11/22 08:05 Order name: EKG; Complete Time: 08:06 ms3 11/22 07:08 Order name: IV Saline Lock; Complete Time: 07:22 ms3 11/22 07:08 Order name: Labs collected and sent; Complete Time: 07:22 ms3 11/22 08:05 Order name: Accucheck; Complete Time: 08:18 ms3 11/22 08:05 Order name: Cardiac monitoring; Complete Time: 08:17 ms3 11/22 08:05 Order name: EKG - Nurse/Tech; Complete Time: 09:06 ms3 11/22 08:05 Order name: IV Saline Lock - Large Bore; Complete Time: 08:18 ms3 11/22 08:05 Order name: O2 Per Protocol; Complete Time: 08:17 ms3 11/22 08:05 Order name: O2 Sat Monitoring; Complete Time: 08:17 ms3 08:05 Order name: Vital Signs; Complete Time: 08:17 ms3 EC:09 Rate is 91 beats/min. Rhythm is regular. QRS [place] is Normal. MS interval is normal. QRS ms3 interval is normal. Clinical impression: Normal ECG. Interpreted by me. Reviewed by me. Administered Medications: 07:22 Drug: NS 0.9% IV 1000 ml Route: IV; Rate: 1 bolus; Site: right antecubital; ko1 09:00 Follow up: Response: No adverse reaction; IV Status: Completed infusion; IV Intake: ko1 1000ml 07:22 Drug: TORadol - Ketorolac IVP 15 mg Route: IVP; Site: right antecubital; ko1 08:15 Follow up: Response: No adverse reaction; No change in condition ko1 07:22 Drug: Ondansetron IVP 4 mg Route: IVP; Site: right antecubital; ko1 08:00 Follow up: Response: No adverse reaction ko1 08:21 Drug: morphine IVP or IV 4 mg Route: IVP; Infused Over: 4 mins; Site: right antecubital;ko1 08:45 Follow up: Response: No adverse reaction; Pain is decreased ko1 Disposition Summary: 11/22/22 10:15 Discharge Ordered Location: Home ms3 Condition: Stable ms3 Diagnosis - Other pneumonia, unspecified organism ms3 - Nausea with vomiting, unspecified ms3 - Diarrhea, unspecified ms3 Followup: ms3 - With: Private Physician - When: 2 - 3 days - Reason: Recheck today's complaints Discharge Instructions: - Diarrhea, Adult ms3 - Nausea and Vomiting, Adult ms3 - Community-Acquired Pneumonia, Adult ms3 - Discharge Summary Sheet ko1 Forms: - Medication Reconciliation Form ms3 - Thank You Letter ms3 - Antibiotic Education ms3 - Prescription Opioid Use ms3 - [email or web address] ms3 - Work release form ko1 Prescriptions: - albuterol sulfate 90 mcg/actuation Inhalation HFA Aerosol Inhaler - inhale 2 puff by INHALATION route every 4 hours as needed for shortness of ms3 breath or wheezing; until breathing returns to target peak flow/parameters; 1 unit; Refills: 0, Product Selection Permitted - azithromycin 250 mg Oral tablet - take 1 dose pack by ORAL route as directed on dose pack For 250 mg dose pack: ms3 take 500 mg today (day 1), then 250 mg for 4 days (days 2-5); 6 tablet; Refills: 0, Product Selection Permitted - ondansetron HCl 4 mg Oral tablet - take 1 tablet by ORAL route every 8 hours; 15 tablet; Refills: 0, Product ms3 Selection Permitted Signatures: Dispatcher [employer] EDRickey Madera, DO ms3 Marisel Xie RN RN ld1 Galina Moss RN RN ko1
--- NOTE | 2022-11-22 10:15 | ER ---
Nurse's Notes [facility] Name: Guy Joe Jr Age: 37 yrs Sex: Male : 1985 Arrival Date: 11/22/2022 Time: 06:41 Bed 13 Private MD: Diagnosis: Other pneumonia, unspecified organism;Nausea with vomiting, unspecified;Diarrhea, unspecified Presentation: 11/22 07:02 Chief complaint: Patient states: C/O N/V/D since 2100 last night. Pain to lower left ld1 flank. Coronavirus screen: At this time, the client does not indicate any symptoms associated with coronavirus-19. Ebola Screen: No symptoms or risks identified at this time. Initial Sepsis Screen: Does the patient meet any 2 criteria? No. Patient's initial sepsis screen is negative. Does the patient have a suspected source of infection? No. Patient's initial sepsis screen is negative. Risk Assessment: Do you want to hurt yourself or someone else? Patient reports no desire to harm self or others. Onset of symptoms was November 22, 2022. 07:02 Method Of Arrival: Ambulatory ld1 07:02 Acuity: LOW 3 ld1 Triage Assessment: 07:03 General: Appears in no apparent distress. uncomfortable, Behavior is cooperative, ld1 anxious. Pain: Complains of pain in left low back Pain does not radiate. Pain currently is 10 out of 10 on a pain scale. Quality of pain is described as throbbing. EENT: No signs and/or symptoms were reported regarding the EENT system. Neuro: Level of Consciousness is awake, alert, obeys commands, Oriented to person, place, time, situation. Cardiovascular: Capillary refill < 3 seconds Patient's skin is warm and dry. Respiratory: Airway is patent Respiratory effort is even, unlabored. GI: Abdomen is round non-distended, Reports diarrhea, nausea, vomiting. : No signs and/or symptoms were reported regarding the genitourinary system. Derm: No signs and/or symptoms reported regarding the dermatologic system. Musculoskeletal: No signs and/or symptoms reported regarding the musculoskeletal system. Historical: - Allergies: 07:03 No Known Allergies; ld1 - PMHx: 07:03 Asthma; ld1 - PSHx: 07:03 Appendectomy; ld1 - Immunization history:: Adult Immunizations up to date, Client reports receiving the 2nd dose of the Covid vaccine. - Social history:: Smoking status: Patient denies any tobacco usage or history of. Patient/guardian denies using alcohol. Screenin:15 [facility] ED Fall Risk Assessment (Adult) History of falling in the last 3 months, ko1 including since admission No falls in past 3 months (0 pts) Confusion or Disorientation No (0 pts) Intoxicated or Sedated No (0 pts) Impaired Gait No (0 pts) Mobility Assist Device Used No (0 pt) Altered Elimination No (0 pt) Score/Fall Risk Level 0 - 2 = Low Risk Oriented to surroundings, Maintained a safe environment, Educated pt \T\ family on fall prevention, incl call for assistance when getting out of bed, Assessed \T\ reinforced patient's understanding of fall precautions, Provided non-skid footwear, Hourly rounding (assess needs \T\ fall precautionary measures) done, Used ambulatory aids as needed (educated on \T\ assisted with), Used gait belt as appropriate. Abuse screen: Denies threats or abuse. Denies injuries from another. Nutritional screening: No deficits noted. Tuberculosis screening: No symptoms or risk factors identified. Assessment: 07:15 General: Appears distressed, uncomfortable, Behavior is calm, cooperative, appropriate ko1 for age. Pain: Complains of pain in back and left low back. Neuro: No deficits noted. Cardiovascular: No deficits noted. Respiratory: No deficits noted. GI: Bowel sounds present X 4 quads. Abd is soft X 4 quads. : Reports pain in lower back. EENT: No deficits noted. Derm: No deficits noted. Musculoskeletal: No deficits noted. Vital Signs: 07:02 Pulse 125; Resp 22; Temp 98.3(O); Pulse Ox 98% on R/A; Weight 122.47 kg; Height 6 ft. 1 ld1 in. ; Pain 10/10; 07:04 BP 111 / 87; ld1 09:10 BP 118 / 78; Pulse 95; Resp 18; Pulse Ox 97% on R/A; ko1 10:00 BP 121 / 76; Pulse 92; Resp 15; Pulse Ox 99% ; ko1 07:02 Body Mass Index 35.62 (122.47 kg, 185.42 cm) ld1 07:02 Pain Scale: Adult ld1 ED Course: 06:42 Patient arrived in ED. ja2 07:03 Rickey Xie DO is Attending Physician. ms3 07:03 Rickey Xie DO is Attending Physician. ms3 07:03 Triage completed. ld1 07:03 Arm band placed on right wrist. ld1 07:08 Galina Moss, RN is Primary Nurse. ko1 07:15 Patient has correct armband on for positive identification. Bed in low position. Call ko1 light in reach. Pulse ox on. NIBP on. Door closed. Noise minimized. Lights dimmed. Warm blanket given. 07:15 Inserted saline lock: 20 gauge in right antecubital area, using aseptic technique. ko1 Blood collected. 07:23 CBC with Diff Sent. ko1 07:23 CMP Sent. ko1 07:23 Urinalysis w/ reflexes Sent. ko1 07:24 CT Abd/Pelvis - Without Contrast In Process Unspecified. EDMS 08:47 Blood Culture Adult (2) Sent. ko1 08:47 Lactate w/ 2H reflex if indic. Sent. ko1 08:47 Protime (+inr) Sent. ko1 08:47 Ptt, Activated Sent. ko1 09:13 EKG done, by ED staff, reviewed by Rickey Xie DO. mb4 09:22 Diet: Patient given water. mb4 10:26 No provider procedures requiring assistance completed. IV discontinued, intact, ko1 bleeding controlled, No redness/swelling at site. Pressure dressing applied. Administered Medications: 07:22 Drug: NS 0.9% IV 1000 ml Route: IV; Rate: 1 bolus; Site: right antecubital; ko1 09:00 Follow up: Response: No adverse reaction; IV Status: Completed infusion; IV Intake: ko1 1000ml 07:22 Drug: TORadol - Ketorolac IVP 15 mg Route: IVP; Site: right antecubital; ko1 08:15 Follow up: Response: No adverse reaction; No change in condition ko1 07:22 Drug: Ondansetron IVP 4 mg Route: IVP; Site: right antecubital; ko1 08:00 Follow up: Response: No adverse reaction ko1 08:21 Drug: morphine IVP or IV 4 mg Route: IVP; Infused Over: 4 mins; Site: right antecubital;ko1 08:45 Follow up: Response: No adverse reaction; Pain is decreased ko1 Medication: 09:10 VIS not applicable for this client. ko1 Intake: 09:00 IV: 1000ml; Total: 1000ml. ko1 Outcome: 10:15 Discharge ordered by . ms3 10:26 Discharged to home ambulatory. ko1 10: Condition: stable 10:26 Discharge instructions given to patient, Instructed on discharge instructions, follow up and referral plans. medication usage, Demonstrated understanding of instructions, follow-up care, medications, Prescriptions given X 3. 10:45 Patient left the ED. ko1 Signatures: Dispatcher [employer] EDMS Kiya Robison mb4 Rickey Xie DO DO ms3 Marisel Xie, SPENCER RN ld1 Yessi Merritt Kathy, RN RN ko1
[2022-11-22 10:52] VITALS: TEMP 98.3
[2022-11-22 10:54] VITALS: BP 118/78; O2SAT 97
--- NOTE | 2022-11-23 12:16 | EKG ---
Test Date: 2022-11-22 Test Time: 09:09:40 Sprinkler Inspector: MB MEASUREMENT RESULTS: Intervals: Rate: 91 MN: 156 QRSD: 102 QT: 360 QTc: 442 [place]: P: 39 MN: 156 QRS: 9 T: 15 INTERPRETIVE STATEMENTS: Normal sinus rhythm Normal ECG Compared to ECG 06/21/2020 13:13:37 No significant changes Electronically Signed On 11-23-22 12:13:59 CDT by Pablo Franco
== END 2022-11-22 10:45 | disposition home or self-care (01) ==
LOC: ER 06:41
DX: J18.8 Other pneumonia, unspecified organism (principal); R19.7 Diarrhea, unspecified
CPT/HCPCS: 96361; 93005; 87040 ×2; 85025; 81001; 36415; 85610; 83605; 85730; 80053; 74176; 96375; 96374; 99284; J2405; J7030

== ENCOUNTER 2023-02-05 22:16 | Emergency (ER) | payer BC ==
--- OUTSIDE RECORDS SUMMARY | 2023-02-05 22:36 | XMS REPORT | Continuity of Care Document ---
:1985 Author Organization [facility] t Address [address] [facility] [address] [place] [address] Care Team Providers Name Role Phone PCP, PATIENT DOES NOT HAVE A Primary Care Physician UnavailKiran Evans Attending Clinician Doctor Unassigned, [place] Attending Clinician Unavailable Carla Melendrez MD Attending Clinician CARLA MELENDREZ Attending Clinician Unavailable Carol Tomas Attending Clinician CAROL CURIEL Attending Clinician Unavailable CAROL CURIEL Admitting Clinician Unavailable Payers Payer Name Policy Type Policy Number Effective Date Expiration Date Suzy KEMP [id number] 2008 ADMINISTRATION 00:00:00 Problems Condition Condition Condition Status Onset Resolution Last Treating Co mments Source Name Details Category Date Date Treatment Clinician Date No known No known Disease Unive rs active active ity of problems problems [facility] Allergies, Adverse Reactions, Alerts Allergy Allergy Status Severity Reaction(s) Onset Inactive Treating Comm ents Source Name Type Date Date Clinician NO KNOWN Drug Active Univers ALLERGIE Class ity of S [facility] Social History Social Habit Start Date Stop Date Quantity Comments Source Exposure to Not sure University of SARS-CoV-2 [facility] (event) [employer] [place] [employer] [facility] Alcohol intake 2021-05-11 2021-05-11 Lifetime University of 00:00:00 00:00:00 non-drinker [facility] (finding) [employer] [place] [employer] [facility] Tobacco use and 2021-02-25 2021-02-25 Never used Universit y of exposure 00:00:00 00:00:00 [facility] Sex Ass[birth year] Universit y of 00:00:00 00:00:00 [facility] Smoking Status Start Date Stop Date Source Never smoker [facility] Medications Ordered Filled Start Stop Current Ordering Indication Dosage Frequency Signature Comments Components Source Medication Medication Date Date Medication? Clinician (SIG) Name Name No known 2020-05 No Univers medications 2-22 ity of 15:04: [address] No known 2020-05 No Univers medications 2-22 ity of 15:04: [address] No known 2020-05 No Univers medications 2-22 ity of 15:04: [address] No known 2020-05 No Univers medications 2-22 ity of 15:04: [address] No known 2020-05 No Univers medications 0-27 ity of 15:54: [address] No known 2020-05 No Univers medications 0-27 ity of 15:54: [address] Vital Signs Vital Name Observation Time Observation Value Comments Source Body height 2021-03-16 20:54:00 185.4 cm [facility] Body weight 2021-03-16 20:54:00 124.739 kg [facility] BMI 2021-03-16 20:54:00 36.28 kg/m2 [facility] Procedures Procedure Date / Time Performed Performing Clinician Belén forrest DISABILITY/FMLA 2021-06-08 06:01:00 Doctor Unassigned, No Univer [facility] of [facility] DISABILITY/FMLA 2021-05-19 06:01:00 Doctor Unassigned, No Univer s[facility] of [facility] XR KNEE 3 VW LEFT 2021-05-11 21:57:00 Carla Melendrez [facility] Encounters Start End Encounter Admission Attending Care Care Encounter Source Date/Time Date/Time Type Type Clinicians Facility Department ID 2022-09-08 2022-09-08 Ambulatory [facility] [id number] 16:15:00 16:15:00 Pre-Reg Neurology 01 avi Coosa Reza 2022-09-08 2022-09-08 Ambulatory [facility] MNA [id number] 16:15:00 16:15:00 Pre-Reg Neurology 01 l Pb Cobb 2022-09-08 2022-09-08 Outpatient [facility] BRIANNA [id number] 11:15:00 11:15:00 01 avi Cobb 2022-09-08 2022-09-08 Outpatient JOSÉ PetersenSCHDALIA [id number] 11:15:00 11:15:00 Kiran Quintana 2021-06-08 2021-06-08 Orders Doctor RADHA [id number] Univers 00:00:00 00:00:00 Only Unassigned, FRANCO [id number] ity of [facility] [id number] Julian as [phone] [address] 2021-05-19 2021-05-19 Orders Doctor RADHA [id number] Univers 00:00:00 00:00:00 Only Unassigned, FRANCO [id number] ity of [facility] [id number] Julian as [phone] [address] 2021-05-17 2021-05-17 Telephone [facility] [id number] Univers 00:00:00 00:00:00 Carla [employer] [id number] it y of [place] [id number] Julian as ZACKARY?BLEA [id number] [facility] [address] MEDICAL OFFICE [facility] 2021-05-11 2021-05-11 [facility] [id number] Univers 15:15:00 23:59:00 Encounter Carla L [employer] [id number] ity of [place] [id number] Julian as ZACKARY?BLEA [id number] [facility] [address] MEDICAL OFFICE [facility] 2021-05-11 2021-05-11 [facility] [id number] Univers 14:45:00 16:38:04 CARLA mueller [facility] 2021-03-18 2021-03-18 [facility] [id number] Univers 09:30:00 09:30:00 CARLA frankFormerly [facility] 2021-03-16 2021-03-16 [facility] [id number] Univers 15:55:00 23:59:00 Encounter Carla Wheeler [id number] ity of [place] [id number] Julian as Zackary?Blea [id number] [address] [facility] Office [facility] 2021-03-16 2021-03-16 Office [facility] [id number] Univers 15:48:30 16:47:16 Visit Carla WHEELER [id number] it y of [place] [id number] Julian as ZACKARY?BLEA [phone] [address] [place] [place] [facility] OFFICE [facility] 2021-03-16 2021-03-16 [facility] [id number] Univers 15:45:00 16:47:16 [facility] 2021-03-16 2021-03-16 Letter [facility] [id number] Univers 00:00:00 00:00:00 (Out) Carla Wheeler [id number] it y of [place] [id number] Julian as Zackary?Blea [phone] [address] [facility] Office [facility] 2021-02-25 2021-02-25 Office [facility] [id number] Univers 09:23:59 09:51:08 Visit Carla Wheeler [id number] it y of [place] [id number] Julian as Zackary?Blea [phone] [address] [facility] Office [facility] 2021-02-25 2021-02-25 [facility] [id number] Univers 09:00:00 09:51:08 [facility] 2021-02-23 2021-02-23 Emergency [facility] [id number] Univers 18:25:00 22:26:00 Carol [place] [id number] i ty of [place] [id number] [facility] [id number] [place] [id number] [place] 2021-02-23 2021-02-23 Emergency X [facility] ERT [id number] Univers 18:25:00 22:26:00 CAROL mueller [facility] Results This patient has no known results.
[2023-02-05 22:58] LABS: Specific Gravity 1.017 (1.005-1.030); Urine Bilirubin NEGATIVE (Negative); Urine Blood Negative (Negative); Urine Clarity Clear (Clear); Urine Color Colorless (Yellow); Urine Glucose NEGATIVE (Negative); Urine Protein NEGATIVE (Negative); Urine Urobilinogen Normal (Normal); Urine pH 6.5 (5.0-7.0)
[2023-02-05 23:02] LABS: Absolute Lymphocytes (CBC) 3.4 K/uL (0.7-4.9); Hematocrit 45.5 % (39.6-49.0); Lymphocytes % 28.8 % (15.3-44.8); MPV 7.4 fL (7.6-11.3); Platelets 363 thou/uL (152-406); RBC Red Blood Cell Count 5.11 M/uL (4.33-5.43)
[2023-02-05] MEDS ORDERED: METOCLOPRAMIDE 10 MG/2mL INJ ONE (23:06)
[2023-02-05] MEDS ORDERED: ONDANSETRON 4 MG/2 ML VIAL ONE (23:07)
[2023-02-05] MEDS ORDERED: MORPHINE 4 MG/ML SYR ONE (23:07)
[2023-02-05] MEDS ORDERED: NA CHLORIDE 0.9% 1,000 ML ONE (23:07)
[2023-02-05] MEDS ORDERED: KETOROLAC 30 MG/ML INJ ONE (23:07)
[2023-02-05 23:08] LABS: Barbiturates NEGATIVE (NEGATIVE); Benzodiazepines POSITIVE (NEGATIVE); Cocaine POSITIVE (NEGATIVE); METHAMPHETAM NEGATIVE (NEGATIVE); Methadone NEGATIVE (NEGATIVE); Opiates NEGATIVE (NEGATIVE); Phencyclidine NEGATIVE (NEGATIVE); THC Cannibis NEGATIVE (NEGATIVE)
[2023-02-05 23:14] LABS: Albumin 4.1 g/dL (3.4-5.0); Bilirubin Total 0.3 mg/dL (0.2-1.0); Potassium 3.4 mEq/L (3.5-5.1); Protein, Total 9.1 g/dL (6.4-8.2)
[2023-02-06] MEDS ORDERED: HYDROCODONE/APAP 10/325 TAB PO ONE (02:10)
[2023-02-06] MEDS ORDERED: PROMETHAZINE 25 MG TABLET PO ONE (02:17)
[2023-02-06] MEDS ORDERED: PROMETHAZINE 25 MG TABLET ONE (02:36)
[2023-02-06] MEDS ORDERED: HYDROCODONE/APAP 10/325 TAB ONE (02:36)
--- NOTE | 2023-02-06 03:52 | ER ---
Nurse's Notes [facility] Name: Guy Joe Jr Age: 38 yrs Sex: Male : 1985 Arrival Date: 02/05/2023 Time: 22:16 Bed 3 Private MD: Diagnosis: Other cholelithiasis without obstruction;Upper abdominal pain, unspecified;Acute biliary colic Presentation: 02/05 22:51 Chief complaint: Patient states: RUQ abdominal pain that radiates to right shoulder me1 with n/v. Pain started at 7 pm suddenly. Denies fever. Coronavirus screen: Vaccine status: Patient reports being unvaccinated. Coronavirus screen: Vaccine status: Patient reports receiving the 1st dose of the Covid vaccine. Ebola Screen: No symptoms or risks identified at this time. Initial Sepsis Screen: Does the patient meet any 2 criteria? No. Patient's initial sepsis screen is negative. Does the patient have a suspected source of infection? No. Patient's initial sepsis screen is negative. Risk Assessment: Do you want to hurt yourself or someone else? Patient reports no desire to harm self or others. Onset of symptoms was February 05, 2023 at 19:00. 22:51 Method Of Arrival: Ambulatory me1 22:51 Acuity: LOW 3 me1 Historical: - Allergies: 22:53 No Known Allergies; me1 - PMHx: 22:53 Asthma; me1 - PSHx: 22:53 Appendectomy; me1 - Immunization history:: Adult Immunizations unknown. - Social history:: Smoking status: Patient denies any tobacco usage or history of. - Family history:: not pertinent. Screenin:45 [facility] ED Fall Risk Assessment (Adult) History of falling in the last 3 months, lg3 including since admission No falls in past 3 months (0 pts). Abuse screen: Denies threats or abuse. Denies injuries from another. Nutritional screening: No deficits noted. Tuberculosis screening: No symptoms or risk factors identified. Assessment: 23:45 General: Appears in no apparent distress. comfortable, Behavior is calm, cooperative. lg3 Pain: Complains of pain in right upper quadrant. Neuro: No deficits noted. Moses Agitation-Sedation Scale (RASS): 0 - Alert and Calm Level of Consciousness is awake, alert, obeys commands, Oriented to person, place, time, situation. Cardiovascular: No deficits noted. Capillary refill < 3 seconds Clubbing of nail beds is absent JVD is absent Patient's skin is warm and dry. Respiratory: No deficits noted. Airway is patent Respiratory effort is even, unlabored, Respiratory pattern is regular, symmetrical. GI: No deficits noted. Abdomen is round non-distended, Bowel sounds present X 4 quads. Abd is soft X 4 quads Abdomen is tender to palpation in right upper quadrant Reports upper abdominal pain, nausea, vomiting. : No deficits noted. No signs and/or symptoms were reported regarding the genitourinary system. EENT: No deficits noted. No signs and/or symptoms were reported regarding the EENT system. Derm: No deficits noted. No signs and/or symptoms reported regarding the dermatologic system. Skin is intact, is healthy with good turgor, Skin is dry, Skin is normal, Skin temperature is warm. Musculoskeletal: No deficits noted. No signs and/or symptoms reported regarding the musculoskeletal system. Circulation, motion, and sensation intact. Range of motion: intact in all extremities. 02/06 00:50 Reassessment: Patient appears in no apparent distress at this time. No changes from lg3 previously documented assessment. Patient and/or family updated on plan of care and expected duration. Pain level reassessed. Patient is alert, oriented x 3, equal unlabored respirations, skin warm/dry/pink. 03:08 Reassessment: Patient appears in no apparent distress at this time. No changes from lg3 previously documented assessment. Patient and/or family updated on plan of care and expected duration. Pain level reassessed. Patient is alert, oriented x 3, equal unlabored respirations, skin warm/dry/pink. pt quietly resting with family at bedside . Vital Signs: 02/05 22:51 BP 145 / 104; Pulse 72; Resp 20; Temp 95.4(O); Pulse Ox 96% on R/A; Weight 122.47 kg; me1 Height 6 ft. 1 in. ; Pain 10/10; 23:45 BP 144 / 81; Pulse 67; Resp 18 S; Pulse Ox 98% on R/A; lg3 02/06 01:30 BP 139 / 86; Pulse 68; Resp 16 S; Pulse Ox 99% on R/A; lg3 03:00 BP 121 / 81; Pulse 64; Resp 15 S; Pulse Ox 99% on R/A; lg3 02/05 22:51 Body Mass Index 35.62 (122.47 kg, 185.42 cm) me1 02/05 22:51 Pain Scale: Adult co1 ED Course: 02/05 22:17 Patient arrived in ED. cc5 22:18 Bar Boothe MD is Attending Physician. sp4 22:52 Urine Drug Screen Sent. bc6 22:52 CBC with Diff Sent. bc6 22:52 CMP Sent. bc6 22:52 Lipase Sent. bc6 22:52 Urinalysis w/ reflexes Sent. bc6 22:52 Inserted saline lock: 20 gauge in right antecubital area, using aseptic technique. bc6 Blood collected. 22:53 Triage completed. me1 22:53 Arm band placed on Patient placed in waiting room. me1 23:45 Patient maintains SpO2 saturation greater than 95% on room air. lg3 23:45 Patient has correct armband on for positive identification. Placed in gown. Bed in low lg3 position. Call light in reach. Side rails up X 1. Client placed on continuous cardiac and pulse oximetry monitoring. NIBP monitoring applied. panel monitor on. Door closed. Noise minimized. Warm blanket given. Family accompanied patient. 02/06 00:14 CT Abd/Pelvis - IV Contrast Only In Process Unspecified. EDMS 02:35 Abdomen Exam Limited In Process Unspecified. EDMS 03:07 Yuliana Alberto, RN is Primary Nurse. lg3 03:49 Michel Richard MD is Referral Physician. sp4 04:50 No provider procedures requiring assistance completed. IV discontinued, intact, jw7 bleeding controlled, No redness/swelling at site. Pressure dressing applied. 04:50 Provided Education on: discharge instructions, and medications. jw7 Administered Medications: 02/05 23:07 Drug: Ketorolac IVP 60 mg IVP once Route: IVP; Site: right antecubital; as6 02/06 03:09 Follow up: Response: No adverse reaction [facility] 02/05 23:07 Drug: morphine IVP or IV 4 mg IVP once over 4 mins Route: IVP; Infused Over: 4 mins; as6 Site: right antecubital; 02/06 03:09 Follow up: Response: No adverse reaction [facility] 02/05 23:07 Drug: metoCLOPramide IVP 10 mg IVP once; over 1 to 2 minutes Route: IVP; Site: right as6 antecubital; 02/06 03:09 Follow up: Response: No adverse reaction lg3 02/05 23:07 Drug: Ondansetron IVP 4 mg IVP once; over 2 minutes Route: IVP; Site: right antecubital;as6 02/06 03:10 Follow up: Response: No adverse reaction lg3 02/05 23:07 Drug: NS 0.9% IV 1000 ml IV at 1 bolus Per protocol; 1000 mL bolus Route: IV; Rate: 1 as6 bolus; Site: right antecubital; 02/06 03:10 Follow up: IV Status: Completed infusion; IV Intake: 1000ml lg3 02:25 Drug: Friend PO 10 mg-325 mg 1 tabs PO once Route: PO; lg3 03:11 Follow up: Response: No adverse reaction lg3 02:25 Drug: Promethazine PO 25 mg PO once Route: PO; lg3 03:11 Follow up: Response: No adverse reaction lg3 Medication: 04:50 VIS not applicable for this client. jw7 Intake: 03:10 IV: 1000ml; Total: 1000ml. lg3 Outcome: 03:51 Discharge ordered by . dara 04:50 Discharged to home ambulatory, jw7 04:50 Condition: stable 04:50 Discharge instructions given to patient, Instructed on discharge instructions, follow up and referral plans. medication usage, Demonstrated understanding of instructions, follow-up care, medications, Prescriptions given X 2, 04:51 Patient left the ED. jw7 Signatures: Dispatcher [employer] Yuliana Aguilar RN RN lg3 Yoshi Alves RN RN as6 Marilu Sarkar, SPENCER RN jw7 Merlyn Webb cc5 Paige Diaz Sergey, MD MD sp4 Greta Dickens RN RN me1
--- NOTE | 2023-02-06 03:52 | EDPHYS ---
Physician Documentation [facility] Name: Guy Joe Jr Age: 38 yrs Sex: Male : 1985 Arrival Date: 02/05/2023 Time: 22:16 Bed 3 Private MD: ED Physician Bar Boothe HPI: 02/05 22:21 This 38 yrs old Male presents to ER via Unassigned with complaints of sp4 Abdominal Pain. 02/06 03:42 38-year-old male presents with a cute onset of moderate to severe right upper quadrant sp4 pain associated with profuse vomiting starting 2 hours prior to arrival. Patient reports history of gallstone. Historical: - Allergies: 02/05 22:53 No Known Allergies; me1 - PMHx: 22:53 Asthma; me1 - PSHx: 22:53 Appendectomy; me1 - Immunization history:: Adult Immunizations unknown. - Social history:: Smoking status: Patient denies any tobacco usage or history of. - Family history:: not pertinent. ROS: 02/06 03:42 Constitutional: Negative for fever, chills, and weight loss, Abdomen/GI: Positive for sp4 right upper quadrant abdominal pain, nausea, vomiting , negative for constipation All other systems are negative, Exam: 03:42 Constitutional: This is a well developed, well nourished patient who is awake, alert, sp4 in moderate distress secondary to pain Head/Face: Normocephalic, atraumatic. Eyes: Pupils equal round and reactive to light, extra-ocular motions intact. Lids and lashes normal. Conjunctiva and sclera are not injected. Cornea within normal limits. Periorbital areas with no swelling, redness, or edema. ENT: Nares patent. No nasal discharge, no septal abnormalities noted. Tympanic membranes are normal and external auditory canals are clear. Oropharynx with no redness, swelling, or masses, exudates, or evidence of obstruction, uvula midline. Mucous membranes moist. Neck: Trachea midline, no thyromegaly or masses palpated, and no cervical lymphadenopathy. Supple, full range of motion without nuchal rigidity, or vertebral point tenderness. Chest/axilla: Normal chest wall appearance and motion. Nontender with no deformity. No lesions are appreciated. Cardiovascular: Regular rate and rhythm with a normal S1 and S2. No gallops, murmurs, or rubs. Normal PMI, no JVD. No pulse deficits. Respiratory: Lungs have equal breath sounds bilaterally, clear to auscultation and percussion. No rales, rhonchi or wheezes noted. No increased work of breathing, no retractions or nasal flaring. Abdomen/GI: Soft, positive right upper quadrant tenderness, with normal bowel sounds. No distension or tympany. No guarding or rebound. Right upper quadrant tenderness Back: No spinal tenderness. No costovertebral tenderness. Skin: Warm, dry with normal turgor. Normal color with no rashes, no lesions, and no evidence of cellulitis. MS/ Extremity: Pulses equal, no cyanosis. Neurovascular intact. Full, normal range of motion. Neuro: Awake and alert, GCS 15, oriented to person, place, time, and situation. Cranial nerves II-XII grossly intact. Motor strength 5/5 in all extremities. Sensory grossly intact. Psych: Awake, alert, with orientation to person, place and time. Behavior, mood, and affect are within normal limits Vital Signs: 02/05 22:51 BP 145 / 104; Pulse 72; Resp 20; Temp 95.4(O); Pulse Ox 96% on R/A; Weight 122.47 kg; me1 Height 6 ft. 1 in. ; Pain 10/10; 23:45 BP 144 / 81; Pulse 67; Resp 18 S; Pulse Ox 98% on R/A; lg3 02/06 01:30 BP 139 / 86; Pulse 68; Resp 16 S; Pulse Ox 99% on R/A; lg3 03:00 BP 121 / 81; Pulse 64; Resp 15 S; Pulse Ox 99% on R/A; lg3 02/05 22:51 Body Mass Index 35.62 (122.47 kg, 185.42 cm) me1 02/05 22:51 Pain Scale: Adult nj1 MDM: 02/05 22:20 Patient medically screened. sp4 02/06 03:42 ED course: CT - COMPARISON: No relevant prior studies available. FINDINGS: Limitations: sp4 Evaluation limited by motion artifact. Lung bases: Unremarkable. No mass. No consolidation. ABDOMEN: Liver: Unremarkable. No mass. Gallbladder and bile ducts: One or more gallstones in the neck of the gallbladder. No ductal dilation. Pancreas: Unremarkable. No mass. No ductal dilation. Spleen: Unremarkable. No splenomegaly. Adrenals: Unremarkable. No mass. Kidneys and ureters: Unremarkable. No solid mass. No hydronephrosis. Stomach and bowel: Scattered colonic diverticula. No obstruction. No mucosal thickening. PELVIS: Appendix: Suggestion of prior appendectomy. Bladder: Unremarkable. Reproductive: Unremarkable as visualized. ABDOMEN and PELVIS: Intraperitoneal space: Unremarkable. No free air. No significant fluid collection. Bones/joints: No acute fracture. No dislocation. Soft tissues: Unremarkable. Vasculature: Unremarkable. No abdominal aortic aneurysm. Lymph nodes: Unremarkable. No enlarged lymph nodes. IMPRESSION: One or more gallstones in the neck of the gallbladder. Electronically signed by: Leon De Dios MD 02/06/2023. 03:42 Differential Diagnosis altered mental status, sepsis, flu. Data reviewed: vital signs, sp4 nurses notes, old medical records, lab test result(s), radiologic studies, CT scan, ultrasound. Consideration of Admission/Observation Escalation of care including admission/observation considered. ED course: Patient has signs of cholelithiasis without acute cholecystitis, patient is stable to discharge home with referral to general surgeon for evaluation for cholecystectomy. Will prescribe ondansetron, tramadol, and Naprosyn for symptom control. 02/05 22:18 Order name: CBC with Diff; Complete Time: 03:41 4 02/05 22:18 Order name: CMP; Complete Time: 03:41 4 02/05 22:18 Order name: Lipase; Complete Time: 03:41 4 02/05 22:18 Order name: Urinalysis w/ reflexes; Complete Time: 03:41 4 02/05 22:26 Order name: Urine Drug Screen; Complete Time: 03:41 4 02/05 22:26 Order name: CT Abd/Pelvis - IV Contrast Only 4 02/06 02:15 Order name: Abdomen Exam Limited EDMS 02/05 22:18 Order name: IV Saline Lock; Complete Time: 22:52 4 02/05 22:18 Order name: Labs collected and sent; Complete Time: 22:52 sp4 Administered Medications: 02/05 23:07 Drug: Ketorolac IVP 60 mg IVP once Route: IVP; Site: right antecubital; as6 02/06 03:09 Follow up: Response: No adverse reaction lg3 02/05 23:07 Drug: morphine IVP or IV 4 mg IVP once over 4 mins Route: IVP; Infused Over: 4 mins; as6 Site: right antecubital; 02/06 03:09 Follow up: Response: No adverse reaction lg3 02/05 23:07 Drug: metoCLOPramide IVP 10 mg IVP once; over 1 to 2 minutes Route: IVP; Site: right as6 antecubital; 02/06 03:09 Follow up: Response: No adverse reaction lg3 02/05 23:07 Drug: Ondansetron IVP 4 mg IVP once; over 2 minutes Route: IVP; Site: right antecubital;as6 02/06 03:10 Follow up: Response: No adverse reaction lg3 02/05 23:07 Drug: NS 0.9% IV 1000 ml IV at 1 bolus Per protocol; 1000 mL bolus Route: IV; Rate: 1 as6 bolus; Site: right antecubital; 02/06 03:10 Follow up: IV Status: Completed infusion; IV Intake: 1000ml lg3 02:25 Drug: [place] PO 10 mg-325 mg 1 tabs PO once Route: PO; lg3 03:11 Follow up: Response: No adverse reaction lg3 02:25 Drug: Promethazine PO 25 mg PO once Route: PO; lg3 03:11 Follow up: Response: No adverse reaction lg3 Disposition Summary: 02/06/23 03:51 Discharge Ordered Notes: We advise clear liquid diet for 24 hours Location: Home sp4 Problem: new sp4 Symptoms: have improved sp4 Condition: Stable sp4 Diagnosis - Other cholelithiasis without obstruction sp4 - Upper abdominal pain, unspecified sp4 - Acute biliary colic sp4 Followup: sp4 - With: Michel Richard MD - When: 5 - 6 days - Reason: Recheck today's complaints Discharge Instructions: - Discharge Summary Sheet sp4 - Cholelithiasis, [id number] sp4 Forms: - Patient Portal Instructions sp4 Prescriptions: - naproxen 500 mg Oral tablet - take 1 tablet ORAL route every 8 hours PRN pain; 30 tablet; Refills: 0, Product sp4 Selection Permitted - ondansetron 4 mg Oral Tablet,disintegrating - take 1 tablet ORAL route every 6 hours for 3 days PRN nausea; 30 tablet; sp4 Refills: 0, Product Selection Permitted - Tramadol 50 mg Oral Tablet - take 1 tablet ORAL route every 8 hours as needed; 12 tablet; Refills: 0, sp4 Product Selection Permitted Signatures: Dispatcher [employer] Yuliana Aguilar, RN RN lg3 Yoshi Alves RN RN as6 Bar Boothe MD MD sp4 Greta Dickens RN RN me1
[2023-02-06 05:08] VITALS: TEMP 95.4
[2023-02-06 05:20] VITALS: O2SAT 99
[2023-02-06 05:21] VITALS: BP 121/81
--- NOTE | 2023-02-06 14:03 | RAD REPORT ---
EXAM DESCRIPTION: CT - Abdomen Pelvis W Contrast - 02/06/2023 1:12 am CLINICAL HISTORY: The patient is 38 years old and is Male; RUQ PAIN TECHNIQUE: Axial computed tomography images of the abdomen and pelvis with intravenous contrast. S agittal and coronal reformatted images were created and reviewed. This CT exam was performed using one or more of the following dose reduction techniques: automated exposure control, adjustment of t he mA and/or kV according to patient size, and/or use of iterative reconstruction technique. COMPARISON: No relevant prior studies available. FINDINGS: Limitations: Evaluation limited by motion artifact. Lung bases: Unremarkable. No mass. No consolidation. ABDOMEN: Liver: Unremarkable. No mass. Gallbladder and bile ducts: One or more gallstones in the neck of the gallbladder. No ductal dilation. Pancreas: Unremarkable. No mass. No ductal dilation. Spleen: Unremarkable. No splenomegaly. Adrenals: Unremarkable. No mass. Kidneys and ureters: Unremarkable. No solid mass. No hydronephrosis. Stomach and bowel: Scattered colonic diverticula. No obstruction. No mucosal thickening. PELVIS: Appendix: Suggestion of prior appendectomy. Bladder: Unremarkable. Reproductive: Unremarkable as visualized. ABDOMEN and PELVIS: Intraperitoneal space: Unremarkable. No free air. No significant fluid collection. Bones/joints: No acute fracture. No dislocation. Soft tissues: Unremarkable. Vasculature: Unremarkable. No abdominal aortic aneurysm. Lymph nodes: Unremarkable. No enlarged lymph nodes. IMPRESSION: One or more gallstones in the neck of the gallbladder. Electronically signed by: Leon De Dios MD 02/06/2023 12:36 AM CDT Due to temporary technical issues with the PACS/Fluency reporting system, reports are being signed by the in house radiologists without review as a courtesy to insure prompt reporting. The interpreting radiologist is fully responsible for the content of the report.
--- NOTE | 2023-02-06 15:03 | RAD REPORT ---
EXAM DESCRIPTION: US - Abdomen Exam Limited - 02/06/2023 2:33 am CLINICAL HISTORY: RUQ abdominal pain TECHNIQUE: Real-time ultrasound of the right upper quadrant with image documentation. COMPARISON: Abdomen pelvis CT dated 02/05/2023 FINDINGS: Gallbladder: 2.5 cm gallstone. Moderate gallbladder wall thickening. Trace perichole cystic fluid. Common bile duct: Unremarkable as visualized. No stones. No dilation. Pancreas: Unremarkable as visualized. IMPRESSION: Constellation of findings which may reflect acute cholecystitis. Electronically signed by: Ronaldo Huntley MD 02/06/2023 4:00 AM CDT Due to temporary technical issues with the PACS/Fluency reporting system, reports are being signed by the in house radiologists without review as a courtesy to insure prompt reporting. The interpreting radiologist is fully responsible for the content of the report.
== END 2023-02-06 04:51 | disposition home or self-care (01) ==
LOC: ER 22:16
DX: K80.80 Other cholelithiasis without obstruction (principal); K80.50 Calculus of bile duct without cholangitis or cholecystitis without obstruction
CPT/HCPCS: 85025; 36415; 81003; 83690; 80053; 80307; J2765; J2405; J7030; 74177; 76705; Q0169; Q9967

== ENCOUNTER 2023-09-04 07:21 | Observation (INO) | payer OTHER, SELFPAY ==
[2023-09-04] MEDS ORDERED: ONDANSETRON 4 MG/2 ML VIAL ONE ×2 (07:41→12:05)
[2023-09-04] MEDS ORDERED: MORPHINE 4 MG/ML SYR ONE (07:41)
[2023-09-04] MEDS ORDERED: NA CHLORIDE 0.9% 1,000 ML ONE ×2 (07:41→12:05)
[2023-09-04 07:48] LABS: Absolute Lymphocytes (CBC) 0.4 K/uL (0.7-4.9); Absolute Monocytes 0.5 K/uL (0.1-1.3); Absolute Neutrophil 16.3 K/uL (1.8-8.0); Basophils % 0.3 % (0-1.3); Eosinophils % 0.2 % (0-4.4); Hematocrit 48.6 % (39.6-49.0); Hemoglobin 16.4 g/dL (13.6-17.9); Lymphocytes % 2.1 % (15.3-44.8); MCH 30.2 pg (27.0-35.0); MCHC 33.8 g/dL (32.0-36.0); MCV 89.3 fL (80-100); MPV 7.5 fL (7.6-11.3); Monocytes % 3.2 % (3.3-12.3); Neutrophils % 94.2 % (41.7-73.7); Platelets 345 thou/uL (152-406); RBC Red Blood Cell Count 5.44 M/uL (4.33-5.43); Red Cell Distribution Width 12.8 % (12.1-15.2)
[2023-09-04 08:20] LABS: Potassium 3.9 mEq/L (3.5-5.1)
[2023-09-04 08:21] LABS: Albumin 4.4 g/dL (3.4-5.0); Albumin/Globulin Ratio 0.9 (1.1-1.8); Anion Gap 7.9 mEq/L (5.0-15.0); Bilirubin Total 0.8 mg/dL (0.2-1.0); Globulin 4.8 g/dL (2.3-3.5); Protein, Total 9.2 g/dL (6.4-8.2)
--- NOTE | 2023-09-04 08:29 | RAD REPORT ---
EXAM DESCRIPTION: US - Abdomen Exam Limited - 09/04/2023 8:16 am CLINICAL HISTORY: ABD PAIN COMPARISON: Abdomen Exam Limited dated 02/06/2023 FINDINGS: The gallbladder demonstrates large 2 cm gallstone. No pericholecystic fluid or gallbladder wall thickening. The common bile duct is normal measuring 4-5 mm. The liver demonstrates no findings of intrahepatic biliary dilatation. IMPRESSION: Large 2 cm gallstone noted.
--- NOTE | 2023-09-04 08:30 | RAD REPORT ---
EXAM DESCRIPTION: CTAbdomen Pelvis W Contrast - 09/04/2023 8:22 am CLINICAL HISTORY: Abdominal pain. ABD PAIN COMPARISON: Abdomen Pelvis W Contrast dated 02/05/2023; Abdomen Pelvis W Contrast dated 11/06/2022 TECHNIQUE: Venous phase CT imaging of the abdomen and pelvis was performed with 100 ml non-ionic IV contrast. All CT scans are performed using dose optimization technique as appropriate and may include automated exposure control or mA/KV adjustment according to patient size. FINDINGS: The lung bases are clear. The liver demonstrates diffuse fatty liver. Cholelithiasis. Spleen, pancreas, adrenal glands and kidn eys are within normal limits. No bowel obstruction, free air, free fluid or abscess. Appendectomy. Fluid filled colon is noted thro ughout. No evidence of significant lymphadenopathy. No suspicious bony findings. IMPRESSION: Fluid-filled colon is seen throughout without significant distention, which can be seen in nonspecific diarrheal conditions. Cholelithiasis.
[2023-09-04] MEDS ORDERED: IBUPROFEN 400 MG TAB ONE (08:47)
[2023-09-04 09:17] LABS: Band Neutrophils 24 % (0-1); Differential Total Cells Count 100; Lymphocytes 5 % (15-42); Metamyelocytes 1 % (0-0); Monocytes 5 % (0-10); Segmented Neutrophils 65 % (40-80)
[2023-09-04 09:18] LABS: Blood Morphology Comment NOTED (NOT SEEN); Hypochromasia 1+; Platelet Estimate ADEQ
[2023-09-04] MEDS ORDERED: NA CHLORIDE 0.9% 50 ML ONE (09:44)
[2023-09-04] MEDS ORDERED: CEFTRIAXONE 1000 MG/VIAL ONE (09:44)
[2023-09-04] MEDS ORDERED: METRONIDAZOLE 500mg IVPB 500 MG/100 ML BAG IV ONE (09:45)
--- NOTE | 2023-09-04 10:16 | EDPHYS ---
Physician Documentation [facility] Name: Guy Joe Jr Age: 38 yrs Sex: Male : 1985 Arrival Date: 09/04/2023 Time: 07:21 Bed 12 Private MD: ED Physician John Haddad HPI: 09/03 07:52 This 38 yrs old Male presents to ER via Ambulatory with complaints of rn Abdominal Pain, Vomiting/Diarrhea. 07:52 The patient presents to the emergency department with nausea, vomiting, diarrhea, rn abdominal pain. Onset: The symptoms/episode began/occurred yesterday. Possible causes: unknown. The symptoms are aggravated by nothing. The symptoms are alleviated by nothing. Associated signs and symptoms: Pertinent positives: abdominal pain, Pertinent negatives: GI bleeding. Severity of symptoms: At their worst the symptoms were moderate in the emergency department the symptoms are unchanged. The patient has experienced a previous episode. The patient has not recently seen a physician. Patient reports upper abdominal pain associated with vomiting and diarrhea. Vomiting is worse than diarrhea. No blood in stool or emesis. Patient has history of gallbladder disease. Spouse recently with vomiting episodes as well and works at daycare. Patient states this feels different than his gallbladder disease in the past. No chest pain.. Historical: - Allergies: 07:30 No Known Allergies; jl7 - Home Meds: 07:30 None [Active]; jl7 - PMHx: 07:30 Asthma; jl7 - PSHx: 07:30 Appendectomy; jl7 - Immunization history:: Adult Immunizations unknown. - Infectious Disease History:: Denies. - Social history:: Smoking status: Patient denies any tobacco usage or history of. - Family history:: not pertinent. - Hospitalizations: : No recent hospitalization is reported. ROS: 07:52 Constitutional: Negative for fever, chills, and weight loss, Cardiovascular: Negative rn for chest pain, palpitations, and edema, Respiratory: Negative for shortness of breath, cough, wheezing, and pleuritic chest pain, Abdomen/GI: Positive for abdominal pain with nausea/vomiting/diarrhea Back: Negative for injury and pain, MS/Extremity: Negative for injury and deformity, Skin: Negative for injury, rash, and discoloration, Neuro: Negative for headache, weakness, numbness, tingling, and seizure, Exam: 07:52 Constitutional: This is a well developed, well nourished patient who is awake, alert, rn and in no acute distress. Head/Face: Normocephalic, atraumatic. Cardiovascular: Regular rate and rhythm. No pulse deficits. Respiratory: No increased work of breathing, no retractions or nasal flaring. Abdomen/GI: Soft, mild epigastric and right upper quadrant tenderness. No rebound or guarding. Negative Lantigua Vital Signs: 07:29 BP 143 / 99; Pulse 130; Resp 20; Pulse Ox 97% ; Pain 10/10; jl7 07:30 Weight 131.54 kg; Height 6 ft. 1 in. ; jl7 08:39 BP 129 / 76; Pulse 117; Resp 18; Temp 100.7(O); Pulse Ox 98% ; iw 10:15 BP 107 / 80; Pulse 127; Resp 19; Temp 100.4; Pulse Ox 100% ; Pain 3/10; jl7 07:30 Body Mass Index 38.26 (131.54 kg, 185.42 cm) 7 07:29 Pain Scale: Adult jl7 10:15 Pain Scale: Adult jl7 MDM: 07:24 Patient medically screened. rn 10:14 Differential diagnosis: Nonspecific abd pain, cholecystitis, pancreatitis, viral rn gastroenteritis, gastroenteritis. Data reviewed: vital signs, nurses notes, lab test result(s), radiologic studies, CT scan, ultrasound, and as a result, I will admit patient. Consideration of Admission/Observation Patient was admitted/placed on observation. Escalation of care including admission/observation considered. Management of patient was discussed with the following: Mount[employer] Officer: Consulted with Dr. Richard, agrees with admission as mixed picture. Recommends admission to hospitalist service with IV antibiotics, n.p.o., pain medication and will evaluate if this is more gallbladder versus enteritis.. Counseling: I had a detailed discussion with the patient and/or guardian regarding the historical points, exam findings, and any diagnostic results supporting the discharge/admit diagnosis, lab results, radiology results, the need for further work-up and treatment in the hospital. Response to treatment: the patient's symptoms have mildly improved after treatment, and as a result, I will admit patient. 09/03 07:31 Order name: CBC with Diff; Complete Time: 09:26 rn 09/03 07:31 Order name: CMP; Complete Time: 08:40 rn 09/03 07:31 Order name: Lipase; Complete Time: 08:40 rn 09/03 09:12 Order name: Manual Differential; Complete Time: 09:26 EDMS 09/03 09:27 Order name: Blood Culture Adult (2) rn 09/03 09:27 Order name: Lactate w/ 2H reflex if indic. rn 09/03 10:40 Order name: Urinalysis w/ reflexes EDMS 09/03 10:40 Order name: Basic Metabolic Panel EDCA 09/03 10:40 Order name: Basic Metabolic Panel EDMS 09/03 10:40 Order name: CBC with Automated Diff EDMS 09/03 10:40 Order name: CBC with Automated Diff EDMS 09/03 10:40 Order name: Hemoglobin A1c EDCA 09/03 10:40 Order name: Hemoglobin A1c EDCA 09/03 10:40 Order name: Magnesium EDMS 09/03 10:40 Order name: Magnesium EDCA 09/03 10:41 Order name: Phosphorus EDCA 09/03 10:41 Order name: Phosphorus EDCA 09/03 07:31 Order name: CT Abd/Pelvis - IV Contrast Only; Complete Time: 08:40 rn 09/03 07:31 Order name: US Abdomen Limited; Complete Time: 08:40 rn 09/03 10:40 Order name: CONS Physician Consult EDCA 09/03 07:31 Order name: IV Saline Lock; Complete Time: 07:39 rn 09/03 07:31 Order name: Labs collected and sent; Complete Time: 07:39 rn Administered Medications: 07:47 Drug: NS 0.9% IV 1000 ml IV at 1 bolus Per protocol; 1000 mL bolus Route: IV; Rate: 1 iw bolus; Site: right antecubital; 09:00 Follow up: IV Status: Completed infusion; IV Intake: 1000ml jl7 07:48 Drug: Ondansetron IVP 4 mg IVP once; over 2 minutes Route: IVP; Site: right antecubital;iw 10:33 Follow up: Response: No adverse reaction; Nausea is decreased jl7 07:48 Drug: morphine IVP or IV 4 mg IVP once over 4 mins Route: IVP; Infused Over: 4 mins; iw Site: right antecubital; 10:33 Follow up: Response: No adverse reaction; Pain is decreased jl7 08:49 Drug: Ibuprofen PO 800 mg PO once Route: PO; iw 10:32 Follow up: Response: No adverse reaction; Temperature is decreased jl7 10:25 Drug: Rocephin IV 1 grams IV at calculated rate once; Given slow IV push per pharmacy jl7 instructions Route: IV; Rate: calculated rate; Site: left antecubital; 16:11 Follow up: Response: No adverse reaction; IV Status: Completed infusion tl4 10:32 Drug: metroNIDAZOLE IVPB 500 mg 100 ml IVPB at 200 ml/hr once over 30 mins Volume: 100 jl7 ml; Route: IVPB; Rate: 200 ml/hr; Infused Over: 30 mins; Site: left antecubital; 16:11 Follow up: Response: No adverse reaction; IV Status: Completed infusion; IV Intake: tl4 100ml Disposition Summary: 09/04/23 10:15 Hospitalization Ordered Notes: Hospitalization Status: Observation rn Provider: Gary Maddox rn Condition: Stable rn Problem: new rn Symptoms: have improved rn Bed/Room Type: Standard rn Location: Telemetry/MedSurg (observation)(09/04/23 15:46) ja1 Room Assignment: 208(09/04/23 15:46) ja1 Diagnosis - Other cholelithiasis without obstruction rn - Vomiting, unspecified rn - Upper abdominal pain, unspecified rn Forms: - Medication Reconciliation Form rn - SBAR form rn - Leadership Thank You Letter rn Signatures: Dispatcher [employer] EDMS Ophelia Rush, RN RN iw John Haddad MD MD rn Leal, Jahala, RN RN jl7 Izaiah Harris RN RN ja1 Carlyle Helm RN tl4 Corrections: (The following items were deleted from the chart) 09:12 08:00 CBC Smear Scan ordered. EDMS EDMS 13:00 10:15 Telemetry/MedSurg (observation) rn iw 13:00 10:15 rn iw 15:46 13:00 [facility] ER HOLD iw ja1 :46 13:00 ERHOLD- iw ja1
--- NOTE | 2023-09-04 10:16 | ER ---
Nurse's Notes [facility] Name: Guy Joe Jr Age: 38 yrs Sex: Male : 1985 Arrival Date: 09/04/2023 Time: 07:21 Bed 12 Private MD: Diagnosis: Other cholelithiasis without obstruction;Vomiting, unspecified;Upper abdominal pain, unspecified Presentation: 09/03 07:29 Chief complaint: Patient states: Diffuse abdominal pain, N/V/D since 2129 last night. jl Coronavirus screen: At this time, the client does not indicate any symptoms associated with coronavirus-19. Ebola Screen: No symptoms or risks identified at this time. Initial Sepsis Screen: Does the patient meet any 2 criteria? No. Patient's initial sepsis screen is negative. Does the patient have a suspected source of infection? No. Patient's initial sepsis screen is negative. Risk Assessment: Do you want to hurt yourself or someone else? Patient reports no desire to harm self or others. Onset of symptoms was September 03, 2023 at 21:30. 07:29 Method Of Arrival: Ambulatory [facility] 07:29 Acuity: LOW 3 jl7 Triage Assessment: 07:30 General: Appears in no apparent distress. uncomfortable, Behavior is cooperative, jl7 anxious, restless. Pain: Complains of pain in abdomen diffusely Pain currently is 10 out of 10 on a pain scale. GI: Reports diarrhea, nausea, vomiting. Historical: - Allergies: 07:30 No Known Allergies; jl7 - Home Meds: 07:30 None [Active]; jl7 - PMHx: 07:30 Asthma; jl7 - PSHx: 07:30 Appendectomy; jl7 - Immunization history:: Adult Immunizations unknown. - Infectious Disease History:: Denies. - Social history:: Smoking status: Patient denies any tobacco usage or history of. - Family history:: not pertinent. - Hospitalizations: : No recent hospitalization is reported. Screenin:03 [facility] ED Fall Risk Assessment (Adult) History of falling in the last 3 months, jl7 including since admission No falls in past 3 months (0 pts) Confusion or Disorientation No (0 pts) Intoxicated or Sedated No (0 pts) Impaired Gait No (0 pts) Mobility Assist Device Used No (0 pt) Altered Elimination No (0 pt) Score/Fall Risk Level 0 - 2 = Low Risk Oriented to surroundings, Maintained a safe environment. Abuse screen: Denies threats or abuse. Denies injuries from another. Nutritional screening: No deficits noted. Tuberculosis screening: No symptoms or risk factors identified. Assessment: 07:40 General: Appears uncomfortable, ill, Behavior is cooperative, anxious. Pain: Complains iw of pain in right upper quadrant and left upper quadrant Pain currently is 10 out of 10 on a pain scale. Neuro: Level of Consciousness is awake, alert, obeys commands, Oriented to person, place, time, situation, Moves all extremities. Full function. Cardiovascular: Patient's skin is warm and dry. Respiratory: Respiratory effort is even, unlabored, Respiratory pattern is regular, symmetrical. GI: Abdomen is tender to palpation X 4 quads. Derm: Skin is intact, is healthy with good turgor. Musculoskeletal: Range of motion: intact in all extremities. 08:44 Reassessment: Patient appears in no apparent distress at this time. feeling better, iw pain has improved, temp 100.7 , Dr. Haddad notified. 10:00 Reassessment: Patient appears in no apparent distress at this time. Patient and/or jl7 family updated on plan of care and expected duration. Pain level reassessed. Patient is alert, oriented x 3, equal unlabored respirations, skin warm/dry/pink. pain rated 3/10 at this time. Patient states symptoms have improved. Vital Signs: 07:29 BP 143 / 99; Pulse 130; Resp 20; Pulse Ox 97% ; Pain 10/10; jl7 07:30 Weight 131.54 kg; Height 6 ft. 1 in. ; jl7 08:39 BP 129 / 76; Pulse 117; Resp 18; Temp 100.7(O); Pulse Ox 98% ; iw 10:15 BP 107 / 80; Pulse 127; Resp 19; Temp 100.4; Pulse Ox 100% ; Pain 3/10; jl7 07:30 Body Mass Index 38.26 (131.54 kg, 185.42 cm) jl7 07:29 Pain Scale: Adult jl7 10:15 Pain Scale: Adult jl7 ED Course: 07:21 Patient arrived in ED. mr 07:24 John Haddad MD is Attending Physician. rn 07:30 Triage completed. jl7 07:30 Arm band placed on right wrist. Patient placed in waiting room, Patient notified of jl7 wait time. 07:37 Initial lab(s) drawn, by me, sent to lab. Inserted saline lock: 20 gauge in right iw antecubital area, using aseptic technique. Blood collected. 07:39 Ophelia Rush, RN is Primary Nurse. iw 07:48 Patient has correct armband on for positive identification. Bed in low position. Call iw light in reach. Side rails up X 1. Provided Education on: diagnostics . Client placed on continuous cardiac and pulse oximetry monitoring. NIBP monitoring applied. 07:49 Door closed. Noise minimized. Lights dimmed. Pillow given. iw 08:18 US Abdomen Limited In Process Unspecified. EDMS 08:23 CT Abd/Pelvis - IV Contrast Only In Process Unspecified. EDMS 09:50 Inserted saline lock: 20 gauge in left antecubital area, using aseptic technique. jl7 10:00 First set of blood cultures drawn by me. jl7 10:15 Gary Maddox MD is Hospitalizing Provider. rn 10:24 Second set of blood cultures drawn by me. jl7 14:12 Assisted to bathroom. Linen changed. tl4 14:12 No provider procedures requiring assistance completed. Patient admitted, IV remains in tl4 place. Administered Medications: 07:47 Drug: NS 0.9% IV 1000 ml IV at 1 bolus Per protocol; 1000 mL bolus Route: IV; Rate: 1 iw bolus; Site: right antecubital; 09:00 Follow up: IV Status: Completed infusion; IV Intake: 1000ml jl7 07:48 Drug: Ondansetron IVP 4 mg IVP once; over 2 minutes Route: IVP; Site: right antecubital;iw 10:33 Follow up: Response: No adverse reaction; Nausea is decreased jl7 07:48 Drug: morphine IVP or IV 4 mg IVP once over 4 mins Route: IVP; Infused Over: 4 mins; iw Site: right antecubital; 10:33 Follow up: Response: No adverse reaction; Pain is decreased jl7 08:49 Drug: Ibuprofen PO 800 mg PO once Route: PO; iw 10:32 Follow up: Response: No adverse reaction; Temperature is decreased jl7 10:25 Drug: Rocephin IV 1 grams IV at calculated rate once; Given slow IV push per pharmacy jl7 instructions Route: IV; Rate: calculated rate; Site: left antecubital; 16:11 Follow up: Response: No adverse reaction; IV Status: Completed infusion tl4 10:32 Drug: metroNIDAZOLE IVPB 500 mg 100 ml IVPB at 200 ml/hr once over 30 mins Volume: 100 jl7 ml; Route: IVPB; Rate: 200 ml/hr; Infused Over: 30 mins; Site: left antecubital; 16:11 Follow up: Response: No adverse reaction; IV Status: Completed infusion; IV Intake: tl4 100ml Medication: 08:03 VIS not applicable for this client. jl7 Intake: 09:00 IV: 1000ml; Total: 1000ml. jl7 16:11 IV: 100ml; Total: 1100ml. tl4 Outcome: 10:15 Decision to Hospitalize by Provider. rn 17:23 Admitted to Med/surg accompanied by nurse, family with patient, via wheelchair, room tl4 208, with chart, 17:23 Condition: stable 17:23 Instructed on the need for admit, 17:24 Patient left the ED. tl4 Signatures: Dispatcher [employer] EDShanti Tyler, Reg Reg Ophelia Tomas, John Sanchez RN, MD MD rn Leal, Jahala, RN RN jl7 Carlyle Helm RN RN tl4 Corrections: (The following items were deleted from the chart) 10:31 10:15 Rocephin IV 1 grams IV at calculated rate in left antecubital jl7 jl7
--- NOTE | 2023-09-04 10:33 | P.HP ---
Certification for Inpatient Patient admitted to: Observation With expected LOS: >2 Midnights Patient will require the following post-hospital care: None Practitioner: I am a practitioner with admitting privileges, knowledge of patient current condition, hospital course, and medical plan of care. Services: Services provided to patient in accordance with Admission requirements found in Title 42 Section 412.3 of the Code of Federal Regulations Patient History Date of Service: 09/04/23 Reason for admission: Acute cholelithiasis History of Present Illness: Guy Joe is a 38 year old male with Pmhx of asthma who presents to the ED with complaints of nausea, vomiting, diarrhea, and abdominal pain which began yesterday. He reports eating and then laying down to which caused him to wake up with severe abdominal pain which has happened in the past. cholelithiasis and fluid-filled colon are seen on the CT abdomen pelvis. Ultrasound abdomen showing a large 2 cm gallstone. While in the ED Zofran, morphine, Rocephin, Flagyl, and 1 L normal saline were given and tolerated well. Initial vital BP 143 / 99; Pulse 130; Resp 20; Pulse Ox 97% Laboratory evaluation significant for WBC 17.3, H&H stable, sodium 135, serum glucose 140 Fitz be admitted to hospitalist service for further evaluation and treatment of enteritis and cholelithiasis, Dr. Richard consulted and will evaluate for possible surgical intervention. Allergies No Known Allergies Allergy (Unverified 09/04/23 12:00) - Past Medical/Surgical History -: Asthma -: Appendectomy - Family History Family History: Reviewed- Non-Contributory - Social History Smoking Status: Never smoker Alcohol use: Yes CD- Drugs: No Caffeine use: Yes Review of Systems Gastrointestinal: Nausea, Vomiting, Abdominal Pain, Diarrhea Physical Examination - Physical Exam General: Alert, In no apparent distress, Oriented x3 HEENT: Atraumatic, Normocephalic, PERRLA Neck: Supple, 2+ carotid pulse no bruit Respiratory: Clear to auscultation bilaterally, Normal air movement Cardiovascular: No edema, Normal pulses, Regular rate/rhythm, Normal S1 S2 Capillary refill: <2 Seconds Gastrointestinal: Normal bowel sounds, Soft and benign, Distended, Tenderness Musculoskeletal: No clubbing, No swelling, No contractures Integumentary: No rashes Neurological: Normal speech, Normal tone - Studies Laboratory Data (last 24 hrs) 09/04/23 09/04/23 07:37 07:37 WBC 17.30 H Hgb 16.4 Hct 48.6 Plt Count 345 Sodium 135 L Potassium 3.9 BUN 18 Creatinine 1.19 Glucose 140 H Total Bilirubin 0.8 AST 26 ALT 60 Alkaline Phosphatase 93 Lipase 28 Assessment and Plan - Plan Assessment and plan Acute cholelithiasis Acute Enteritis associated with diarrhea Leukocytosis Febrile WBC 17.3, Temp 100.1 Blood cultures pending Ultrasound abdomen showing [address] abdomen pelvis showing fluid-filled colon and cholelithiasis Rocephin and Flagyl given in the ED Continue IV antibiotics Pain control Antiemetics Antipyretic Gentle IV fluid Dr. Richard consulted- no surgical intervention at this time CLD Hyperglycemia Serum glucose 140 A1C in the AM History of asthma Restart home medications DVT PPx SCDs for now Full code LOS 2 days Discharge Plan: Home Plan to discharge in: 24 Hours - Advance Directives Does patient have a Living Will: No Does patient have a Durable POA for Healthcare: No
[2023-09-04] MEDS: NA CHLORIDE 0.9% 1,000 ML IV SCH (12:00)
[2023-09-04] MEDS ORDERED: MORPHINE 2 MG/ML SYR ONE (12:05)
[2023-09-04] MEDS: ONDANSETRON 4 MG/2 ML VIAL IV PRN (12:15)
[2023-09-04] MEDS: MORPHINE 2 MG/ML SYR IV PRN (12:15)
[2023-09-04 12:28] VITALS: BMI 38.2
[2023-09-04] MEDS: METRONIDAZOLE 500mg IVPB 500 MG/100 ML BAG IV SCH (16:50)
[2023-09-04] MEDS: CEFTRIAXONE 1,000 MG in NA CHLORIDE 0.9% 50 ML IVPB SCH (21:20)
[2023-09-04 21:59] VITALS: O2SAT 100
[2023-09-05 04:18] LABS: Anion Gap 8.2 mEq/L (5.0-15.0); Potassium 3.2 mEq/L (3.5-5.1)
[2023-09-05 04:19] LABS: Absolute Eosinophils 0.1 K/uL (0-0.5); Absolute Lymphocytes (CBC) 0.9 K/uL (0.7-4.9); Absolute Monocytes 0.8 K/uL (0.1-1.3); Absolute Neutrophil 6.3 K/uL (1.8-8.0); Basophils % 0.3 % (0-1.3); Hematocrit 40.4 % (39.6-49.0); Hemoglobin 13.8 g/dL (13.6-17.9); Lymphocytes % 10.6 % (15.3-44.8); MCH 30.9 pg (27.0-35.0); MCHC 34.2 g/dL (32.0-36.0); MCV 90.5 fL (80-100); MPV 7.8 fL (7.6-11.3); Magnesium 1.7 mg/dL (1.6-2.4); Monocytes % 10.1 % (3.3-12.3); Phosphorus 2.1 mg/dL (2.5-4.9); Platelets 262 thou/uL (152-406); RBC Red Blood Cell Count 4.46 M/uL (4.33-5.43)
[2023-09-05] MEDS: ACETAMINOPHEN 325 MG TABLET PO PRN (04:35)
[2023-09-05 08:05] VITALS: BP 138/74; TEMP 97.6
[2023-09-05] MEDS: POTASSIUM 25 MEQ EFFERV TAB PO ONE (08:44)
[2023-09-05] MEDS: POTASS/SODIUM PHOSPHATE 1 PKT POWD.PACK PO SCH (08:45)
[2023-09-05] MEDS: MAGNESIUM SULFATE 1 gm IVPB 1 GM/100 ML BAG IV ONE (08:46)
--- NOTE | 2023-09-05 10:19 | P.DS ---
Admission Date: 09/04/23 Discharge Date: 09/05/23 Disposition: ROUTINE DISCHARGE Discharge Condition: FAIR Reason for Admission: Acute cholelithiasis Brief History of Present Illness: Guy Joe is a 38 year old male with Pmhx of asthma who presents to the ED with complaints of nausea, vomiting, diarrhea, and abdominal pain which began yesterday. He reports eating and then laying down to which caused him to wake up with severe abdominal pain which has happened in the past. cholelithiasis and fluid-filled colon are seen on the CT abdomen pelvis. Ultrasound abdomen showing a large 2 cm gallstone. While in the ED Zofran, morphine, Rocephin, Flagyl, and 1 L normal saline were given and tolerated well. Initial vital BP 143 / 99; Pulse 130; Resp 20; Pulse Ox 97% Laboratory evaluation significant for WBC 17.3, H&H stable, sodium 135, serum glucose 140 Fitz be admitted to hospitalist service for further evaluation and treatment of enteritis and cholelithiasis, Dr. Richard consulted and will evaluate for possible surgical intervention. Vital Signs/Physical Exam: Temp Pulse Resp BP Pulse Ox 97.6 F 77 18 138/74 95 09/05/23 07:48 09/05/23 07:48 09/05/23 07:48 09/05/23 07:48 09/05/23 07:48 Laboratory Data at Discharge: WBC 8.10 thou/uL (4.3-10.9) 09/05/23 03:02 Hgb 13.8 g/dL (13.6-17.9) D 09/05/23 03:02 Hct 40.4 % (39.6-49.0) 09/05/23 03:02 Plt Count 262 thou/uL (152-406) 09/05/23 03:02 Sodium 136 mEq/L (136-145) 09/05/23 03:02 Potassium 3.2 mEq/L (3.5-5.1) L D 09/05/23 03:02 BUN 11 mg/dL (7-18) 09/05/23 03:02 Creatinine 0.86 mg/dL (0.70-1.30) 09/05/23 03:02 Glucose 110 mg/dL (74-106) H 09/05/23 03:02 Phosphorus 2.1 mg/dL (2.5-4.9) L 09/05/23 03:02 Magnesium 1.7 mg/dL (1.6-2.4) 09/05/23 03:02 Total Bilirubin 0.8 mg/dL (0.2-1.0) 09/04/23 07:37 AST 26 U/L (15-37) 09/04/23 07:37 ALT 60 U/L (16-61) 09/04/23 07:37 Alkaline Phosphatase 93 U/L (45-117) 09/04/23 07:37 Lipase 28 U/L (13-75) 09/04/23 07:37 Home Medications: Amox/Clavulanate [Augmentin 875-125 Tab] 875 mg PO BID 7 Days #14 tab 09/05/23 Ondansetron [Zofran] 4 mg PO Q6H PRN 7 Days #21 tab 09/05/23 metroNIDAZOLE [Flagyl] 500 mg PO Q8H 7 Days #21 tab 09/05/23 New Medications: Amox/Clavulanate [Augmentin 875-125 Tab] 875 mg PO BID 7 Days #14 tab metroNIDAZOLE [Flagyl] 500 mg PO Q8H 7 Days #21 tab Ondansetron [Zofran] 4 mg PO Q6H PRN 7 Days #21 tab PRN Reason: Nausea / Vomiting Physician Discharge Instructions: Guy Joe presented to the ED with chief complaint of nausea, vomiting, and abdominal pain. CT abdmen/pelvis revealed cholelithiasis as well as fluid-filled colon. Ultrasound abdomen showed a [address] Richard consulted and recommends follow up outpatient in his office, after the gastritis has calmed down. Please advance diet slowly. Refrain from all fatty food and adding butter to your food. Do not lay down flat after eating. 1. Follow up PCP in 2-3 days for further medication management 2. Follow up with Dr. Richard in 2 weeks for outpatient gallbladder management 3. Continue with clear liquid diet to further manage nausea, vomiting, and abdominal pain 4. Advance to full liquid diet in tomorrow, no butter or fatty foods until further instructed by Dr. Richard 5. Advance to GI soft diet in three days, still without butter or fatty foods until further instructed by Dr. Richard 6. Return to the ED if symptoms worsen 7. continue with oral antibiotics to finish the antibiotic course started in the hospital. New medications Flagyl Augmentin Diet: Clear liqu Followup: Davis Velasquez PA [Primary Care Provider] - Michel Richard MD [ACTIVE - CAN ADMIT] -
== END 2023-09-05 11:08 | disposition home or self-care (01) ==
LOC: ER 07:21 → ERHOLD 10:34 → 2ND 16:04
PROVIDERS: ADMIT Internal Medicine; ATTEND Internal Medicine
DX: K80.20 Calculus of gallbladder without cholecystitis without obstruction (principal); K52.9 Noninfective gastroenteritis and colitis, unspecified; J45.909 Unspecified asthma, uncomplicated; R12 Heartburn; R19.7 Diarrhea, unspecified; R73.9 Hyperglycemia, unspecified
CPT/HCPCS: 96365; 96361; 93005; 87040 ×2; 85025 ×2; 80048; 36415; 83735; 84100; 83605; 83036; 83690; 80053; 74177; 76705; 96375; 99285; 96366; Q9967; J3475; J2270 ×4; J2405 ×5; J7030 ×3; J0696 ×3; G0378

== ENCOUNTER 2024-01-27 01:38 | Inpatient (IN) | payer BC, SELFPAY ==
[2024-01-27] MEDS ORDERED: ONDANSETRON 4 MG/2 ML VIAL ONE (02:00)
[2024-01-27] MEDS ORDERED: MORPHINE 4 MG/ML SYR ONE (02:00)
[2024-01-27] MEDS ORDERED: HYDROMORPHONE HCL 1 MG/ML INJ ONE (02:17)
[2024-01-27 02:21] LABS: Absolute Basophils 0.1 K/uL (0-0.5); Absolute Eosinophils 0.2 K/uL (0-0.5); Absolute Lymphocytes (CBC) 3.1 K/uL (0.7-4.9); Absolute Monocytes 0.8 K/uL (0.1-1.3); Absolute Neutrophil 6.2 K/uL (1.8-8.0); Basophils % 0.7 % (0-1.3); Eosinophils % 2.3 % (0-4.4); Hematocrit 45.6 % (39.6-49.0); Hemoglobin 15.8 g/dL (13.6-17.9); Lymphocytes % 29.5 % (15.3-44.8); MCH 31.3 pg (27.0-35.0); MCHC 34.7 g/dL (32.0-36.0); MCV 90.4 fL (80-100); MPV 7.6 fL (7.6-11.3); Monocytes % 7.5 % (3.3-12.3); Nucleated RBC Absolute Count 0.1 (0-0); Nucleated Red Blood Cells % 0.6 % (0-0); Platelets 382 thou/uL (152-406); RBC Red Blood Cell Count 5.04 M/uL (4.33-5.43); Red Cell Distribution Width 13.1 % (12.1-15.2)
[2024-01-27 03:00] LABS: Albumin 3.7 g/dL (3.4-5.0); Albumin/Globulin Ratio 0.8 (1.1-1.8); Anion Gap 8.5 mEq/L (5.0-15.0); Bilirubin Total 0.3 mg/dL (0.2-1.0); Globulin 4.6 g/dL (2.3-3.5); Protein, Total 8.3 g/dL (6.4-8.2)
[2024-01-27 03:01] LABS: Potassium 3.5 mEq/L (3.5-5.1)
[2024-01-27] MEDS ORDERED: PIPERACIL/TAZO 3.375 GM VIAL IV ONE (04:12)
[2024-01-27] MEDS ORDERED: NA CHLORIDE 0.9% 100 ML ONE (04:12)
--- NOTE | 2024-01-27 04:16 | ER ---
Nurse's Notes [facility] Name: Guy Joe Jr Age: 38 yrs Sex: Male : 1985 Arrival Date: 01/27/2024 Time: 01:38 Bed 8 Private MD: Diagnosis: Acute cholecystitis Presentation: 01/26 01:47 Chief complaint: Patient states: gallstones diagnosed few months ago. new onset pain, lg3 vomiting beginning 0100. Coronavirus screen: Client denies travel out of the [place] in the last 14 days. At this time, the client does not indicate any symptoms associated with coronavirus-19. Ebola Screen: No symptoms or risks identified at this time. Initial Sepsis Screen: Does the patient meet any 2 criteria? No. Patient's initial sepsis screen is negative. Does the patient have a suspected source of infection? No. Patient's initial sepsis screen is negative. Risk Assessment: Do you want to hurt yourself or someone else? Patient reports no desire to harm self or others. Onset of symptoms was January 27, 2024. 01:47 Method Of Arrival: Ambulatory lg3 01:47 Acuity: LOW 3 lg3 Triage Assessment: 01:50 General: Appears in no apparent distress. uncomfortable, Behavior is calm, cooperative. lg3 Pain: Complains of pain in right upper quadrant Pain does not radiate. Pain currently is 10 out of 10 on a pain scale. EENT: No deficits noted. No signs and/or symptoms were reported regarding the EENT system. Neuro: No deficits noted. Moses Agitation-Sedation Scale (RASS): +1 Restless Level of Consciousness is awake, alert, obeys commands, Oriented to person, place, time, situation. Cardiovascular: No deficits noted. Denies chest pain, shortness of breath, Capillary refill < 3 seconds Clubbing of nail beds is absent JVD is absent Patient's skin is warm and dry. Respiratory: No deficits noted. Airway is patent Respiratory effort is even, unlabored, Respiratory pattern is regular, symmetrical. GI: Abdomen is round non-distended, obese, Pt is actively vomiting bile, undigested food, Reports upper abdominal pain, cramping, epigastric pain, incontinence, intolerance of fluids, intolerance of food, nausea, vomiting. : No deficits noted. No signs and/or symptoms were reported regarding the genitourinary system. Derm: No deficits noted. No signs and/or symptoms reported regarding the dermatologic system. Skin is intact, is healthy with good turgor, Skin is dry, Skin is normal, Skin temperature is warm. Musculoskeletal: No deficits noted. No signs and/or symptoms reported regarding the musculoskeletal system. Circulation, motion, and sensation intact. Range of motion: intact in all extremities. Historical: - Allergies: 01:50 No Known Allergies; lg3 - Home Meds: 01:50 None [Active]; lg3 - PMHx: 01:50 Asthma; lg3 - PSHx: 01:50 Appendectomy; lg3 - Immunization history:: Adult Immunizations up to date. - Infectious Disease History:: Denies. - Social history:: Smoking status: Patient denies any tobacco usage or history of. Patient/guardian denies using alcohol, street drugs. - Family history:: not pertinent. - Hospitalizations: : No recent hospitalization is reported. Screenin:55 [facility] ED Fall Risk Assessment (Adult) History of falling in the last 3 months, jj7 including since admission No falls in past 3 months (0 pts) Confusion or Disorientation No (0 pts) Intoxicated or Sedated No (0 pts) Impaired Gait No (0 pts) Mobility Assist Device Used No (0 pt) Altered Elimination No (0 pt) Score/Fall Risk Level 0 - 2 = Low Risk Oriented to surroundings, Maintained a safe environment, Educated pt \T\ family on fall prevention, incl call for assistance when getting out of bed, Assessed \T\ reinforced patient's understanding of fall precautions. Abuse screen: Denies threats or abuse. Nutritional screening: No deficits noted. Tuberculosis screening: No symptoms or risk factors identified. Assessment: 01:55 General: Appears in no apparent distress. uncomfortable, Behavior is calm, cooperative, jj7 appropriate for age. Pain: Complains of pain in right upper quadrant and left upper quadrant Pain currently is 10 out of 10 on a pain scale. GI: Bowel sounds present X 4 quads. Abdomen is tender to palpation in right upper quadrant and left upper quadrant. Vital Signs: 01:47 BP 155 / 100; Pulse 78; Resp 17 S; Temp 98.2(O); Pulse Ox 100% on R/A; Weight 127.01 kg lg3 (R); Height 6 ft. 1 in. (R); Pain 10/10; 03:00 BP 139 / 82; Pulse 60; Resp 17; Pulse Ox 97% ; jj7 04:09 BP 131 / 76; Pulse 58; Resp 17; Pulse Ox 96% ; jj7 05:05 BP 131 / 82; Pulse 60; Resp 17; Temp 98.1; Pulse Ox 97% ; jj7 05:29 BP 127 / 79; Pulse 59; Resp 17; Pulse Ox 97% ; jj7 01:47 Body Mass Index 36.94 (127.01 kg, 185.42 cm) lg3 01:47 Pain Scale: Adult lg3 ED Course: 01:42 Patient arrived in ED. jj6 01:45 John Haddad MD is Attending Physician. rn 01:49 Triage completed. lg3 01:50 Arm band placed on left wrist. lg3 01:55 Patient has correct armband on for positive identification. Bed in low position. Call jj7 light in reach. Adult w/ patient. Provided Education on: USE OF CALL HUBBARD. 01:55 Warm blanket given. jj7 02:01 Inserted saline lock: 20 gauge in right antecubital area, using aseptic technique. lg3 Blood collected. 02:07 CBC with Diff Sent. jj7 02:08 CMP Sent. jj7 02:08 Lipase Sent. jj7 02:19 Addi Granados, RN is Primary Nurse. jj7 02:39 US Abdomen Limited In Process Unspecified. EDMS 04:16 Rip Morrow MD is Hospitalizing Provider. rn 05:04 No provider procedures requiring assistance completed. Patient admitted, IV remains in jj7 place. Administered Medications: 02:07 Drug: Ondansetron IVP 4 mg IVP once; over 2 minutes Route: IVP; Site: left antecubital; jj7 03:13 Follow up: Response: Marked relief of symptoms jj7 02:07 Drug: morphine IVP or IV 4 mg IVP once over 4 mins Route: IVP; Infused Over: 4 mins; jj7 Site: left antecubital; 02:19 Follow up: Response: Pain is unchanged, physician notified jj7 02:20 Drug: HYDROmorphone IVP 1 mg IVP once Route: IVP; Site: left antecubital; jj7 02:45 Follow up: Response: Marked relief of symptoms; Pain is decreased jj7 04:30 Drug: Piperacillin-Tazobactam IVPB 3.375 grams IVPB once over 60 mins; (mix in NS 100 jj7 mL) Route: IVPB; Infused Over: 60 mins; Site: right antecubital; 05:03 Follow up: IV Status: Completed infusion j7 05:29 Follow up: Response: No adverse reaction jj7 Medication: 01:55 VIS not applicable for this client. jj7 Outcome: 04:16 Decision to Hospitalize by Provider. rn 05:04 Admitted to Med/surg accompanied by tech, via wheelchair, room 410, Report called to [email or web address] SBAR FAXED TO 4TH FLOOR RECEIVED BY JESS 05:04 Condition: improved 05:30 Patient left the ED. jj7 Signatures: Dispatcher [employer] EDMS John Haddad MD MD rn Able, Lacie, RN RN lg3 Clary Olson jj6 Addi Granados RN RN jj7
--- NOTE | 2024-01-27 04:16 | EDPHYS ---
Physician Documentation [facility] Name: Guy Joe Jr Age: 38 yrs Sex: Male : 1985 Arrival Date: 01/27/2024 Time: 01:38 Bed 8 Private MD: ED Physician John Haddad HPI: 01/26 02:01 This 38 yrs old Male presents to ER via Ambulatory with complaints of rn Abdominal Pain, Nausea/Vomiting. 02:01 The patient presents to the emergency department with nausea, vomiting, abdominal pain. rn Onset: The symptoms/episode began/occurred just prior to arrival. Possible causes: gallbladder. The symptoms are aggravated by nothing. The symptoms are alleviated by nothing. 02:03 Associated signs and symptoms: Pertinent positives: abdominal pain, nausea, vomiting, rn Pertinent negatives: diarrhea, fever, GI bleeding. Severity of symptoms: At their worst the symptoms were moderate. The patient has experienced similar episodes in the past. Patient reports known gallstones. Just prior to arrival woke up with abdominal pain, right upper quadrant, associated with nausea and vomiting. No fever. Had barbecue for dinner. Last attack was in August, admitted but determined did not need emergent cholecystectomy at that time. Had been doing okay without pain and did not modify diet.. Historical: - Allergies: 01:50 No Known Allergies; lg3 - Home Meds: 01:50 None [Active]; lg3 - PMHx: 01:50 Asthma; lg3 - PSHx: 01:50 Appendectomy; lg3 - Immunization history:: Adult Immunizations up to date. - Infectious Disease History:: Denies. - Social history:: Smoking status: Patient denies any tobacco usage or history of. Patient/guardian denies using alcohol, street drugs. - Family history:: not pertinent. - Hospitalizations: : No recent hospitalization is reported. ROS: 02:03 Constitutional: Negative for fever, chills, and weight loss, Cardiovascular: Negative rn for chest pain, palpitations, and edema, Respiratory: Negative for shortness of breath, cough, wheezing, and pleuritic chest pain, Abdomen/GI: Positive for abdominal pain with nausea/vomiting Back: Negative for injury and pain, : Negative for injury, bleeding, discharge, and swelling, MS/Extremity: Negative for injury and deformity, Skin: Negative for injury, rash, and discoloration, Neuro: Negative for headache, weakness, numbness, tingling, and seizure, Exam: 02:03 Constitutional: This is a well developed, well nourished patient who is awake, alert, rn appears uncomfortable, ambulatory to room without assistance Cardiovascular: Regular rate and rhythm. No pulse deficits. Respiratory: No increased work of breathing, no retractions or nasal flaring. Abdomen/GI: Soft, right upper quadrant tenderness with guarding Vital Signs: 01:47 BP 155 / 100; Pulse 78; Resp 17 S; Temp 98.2(O); Pulse Ox 100% on R/A; Weight 127.01 kg lg3 (R); Height 6 ft. 1 in. (R); Pain 10/10; 03:00 BP 139 / 82; Pulse 60; Resp 17; Pulse Ox 97% ; jj7 04:09 BP 131 / 76; Pulse 58; Resp 17; Pulse Ox 96% ; jj7 05:05 BP 131 / 82; Pulse 60; Resp 17; Temp 98.1; Pulse Ox 97% ; jj7 05:29 BP 127 / 79; Pulse 59; Resp 17; Pulse Ox 97% ; jj7 01:47 Body Mass Index 36.94 (127.01 kg, 185.42 cm) lg3 01:47 Pain Scale: Adult lg3 MDM: 01:45 Patient medically screened. rn 04:15 Differential diagnosis: cholecystitis, pancreatitis. Data reviewed: vital signs, nurses rn notes, lab test result(s), radiologic studies, ultrasound, and as a result, I will admit patient. Consideration of Admission/Observation Patient was admitted/placed on observation. Escalation of care including admission/observation considered. Counseling: I had a detailed discussion with the patient and/or guardian regarding the historical points, exam findings, and any diagnostic results supporting the discharge/admit diagnosis, lab results, radiology results, the need for further work-up and treatment in the hospital. Response to treatment: the patient's symptoms have mildly improved after treatment, and as a result, I will admit patient. ED course: Ultrasound shows stones in neck of gallbladder, pericholecystic fluid and positive sonographic Lantigua sign. Will admit to Dr. Morrow for acute early cholecystitis.. 01/26 01:58 Order name: CBC with Diff; Complete Time: 03:02 rn 01/26 01:58 Order name: CMP; Complete Time: 03:02 rn 01/26 01:58 Order name: Lipase; Complete Time: 03:02 rn 01/26 01:58 Order name: US Abdomen Limited rn 01/26 01:58 Order name: IV Saline Lock; Complete Time: 02:07 rn 01/26 01:58 Order name: Labs collected and sent; Complete Time: 02:07 rn Administered Medications: 02:07 Drug: Ondansetron IVP 4 mg IVP once; over 2 minutes Route: IVP; Site: left antecubital; jj7 03:13 Follow up: Response: Marked relief of symptoms jj7 02:07 Drug: morphine IVP or IV 4 mg IVP once over 4 mins Route: IVP; Infused Over: 4 mins; jj7 Site: left antecubital; 02:19 Follow up: Response: Pain is unchanged, physician notified jj7 02:20 Drug: HYDROmorphone IVP 1 mg IVP once Route: IVP; Site: left antecubital; jj7 02:45 Follow up: Response: Marked relief of symptoms; Pain is decreased jj7 04:30 Drug: Piperacillin-Tazobactam IVPB 3.375 grams IVPB once over 60 mins; (mix in NS 100 jj7 mL) Route: IVPB; Infused Over: 60 mins; Site: right antecubital; 05:03 Follow up: IV Status: Completed infusion jj7 05:29 Follow up: Response: No adverse reaction jj7 Disposition Summary: 01/27/24 04:16 Hospitalization Ordered Notes: Hospitalization Status: Inpatient Admission rn Provider: Rip Morrow [facility]n [facility] rn Condition: Stable rn Problem: new rn Symptoms: have improved rn Bed/Room Type: Standard rn Room Assignment: 410(01/27/24 04:32) iw Diagnosis - Acute cholecystitis rn Forms: - Medication Reconciliation Form rn - SBAR form rn - Leadership Thank You Letter rn Signatures: Dispatcher [employer] Ophelia Barnes RN RN iw Nieto, Roman, MD MD rn Able, Lacie, RN RN lg3 Addi Granados RN RN jj7 Corrections: (The following items were deleted from the chart) 04:32 04:16 rn iw
[2024-01-27] MEDS: D5 0.45 NS 1,000 ML IV SCH (05:51)
[2024-01-27] MEDS: ONDANSETRON 4 MG/2 ML VIAL IV PRN ×2 (05:51→19:50)
[2024-01-27 06:08] VITALS: BMI 36.9
[2024-01-27] MEDS: MORPHINE 4 MG/ML SYR IV PRN ×2 (10:45→18:24)
[2024-01-27] MEDS: Ringers Lactate 1,000 ML IV ONE ×2 (14:31→16:46)
[2024-01-27] MEDS: CEFOXITIN SODIUM 1 GM/VIAL ONE (14:43)
--- NOTE | 2024-01-27 15:07 | P.HP ---
Date of Service: 01/27/24 PC: This patient, with a known history of gallstones, presented the emergency room with severe right upper quadrant abdominal pain, radiating into his back, for diagnosis again and treatment. HPC: Patient able to eat some barbecue at home. Started having severe right upper quadrant abdominal pain. Has had attacks in the past, but this was definitely the worst. He is brought to the operating room for evaluation and treatment. PSHx: Negative PMHx: Has sleep apnea, was diagnosed with gallstones in the past, but had not had them treated surgically. Social Hx: No known allergies Sys R: No cough, wheeze, shortness of breath. No chest pain or palpitations. No urinary complaints O/E: Awake alert vital signs are stable HEENT: Not jaundiced Chest: Air entry equal bilaterally Abd: Mild right upper quadrant discomfort [place]: Intact Data: Has gallstones on ultrasound with possible pericholecystic fluid Impression: Acute on chronic cholecystitis with cholelithiasis Plan: I will taken the operating room for a laparoscopic possible open cholecystectomy with a cholangiogram. The risks of this procedure have been di scussed. The possibility of bleeding, infection, injury to bile ducts blood vessels and intestines were described. The possible need for an open and or further surgeries were described. He understands and wants us to proceed.
[2024-01-27] MEDS ORDERED: FENTANYL CITR 100 MCG/2 ML ONE ×2 (15:24→16:21)
[2024-01-27] MEDS ORDERED: propofoL 200 MG/20 ML VIAL IV ONE (15:24)
[2024-01-27] MEDS ORDERED: MIDAZOLAM HCL 2 MG/2 ML INJ ONE (15:24)
[2024-01-27] MEDS ORDERED: ROCURONIUM 50 MG/5 ML VIAL IV ONE ×2 (15:24→16:20)
[2024-01-27] MEDS: SUCCINYLCHOLINE 20 MG/ML (10 ML) IV ONE ×2 (15:25→15:47)
[2024-01-27] MEDS ORDERED: GLYCOPYRROLATE 0.2 MG/ML SYR ONE ×5 (15:46→17:10)
[2024-01-27] MEDS ORDERED: NEOSTIGMINE 1 MG/ML -10 ML VIAL ONE (17:09)
[2024-01-27] MEDS: SUGAMMADEX SODIUM 200 MG/2 ML VIAL IV ONE (17:24)
--- NOTE | 2024-01-27 17:27 | P.OP ---
Preoperative diagnosis: Acute cholecystitis with cholelithiasis Postoperative diagnosis: The same Primary procedure: Laparoscopic cholecystectomy Secondary procedure: Cholangiogram Other procedure(s): Tap block Anesthesia: General Estimated blood loss: Less than 10 cc Specimen: 1 gallbladder and contents Operative Technique: The patient brought the operating room and placed supine on the table. After the induction of adequate general endotracheal anesthesia, the area of the abdomen was prepped with a DuraPrep solution, and he was draped in the usual ase ptic manner. Attention was turned towards the umbilicus. It was injected with 0.25% Marcaine. A subumbilical incision was then made. The Visiport was used to go through the subcutaneous tissue down through the fascia and into the peritoneum cavity. A pneumoperitoneum was now created to approximately 12 mmHg. The patient was then placed in reverse Trendelenburg. Under direct vision a 5 mm tr ocar was placed in the upper midline, and 2 other 5 mm trocars on the right side of the abdomen. At this point 0.25% Marcaine was used to do a T SOPHIE block of the anterior abdominal wall bilaterally. The gallbladder was visualized. There was noted to be a marked amount of omentum adherent to the serosal surface. A grasper was placed on the fundus of the gallbladder. Applying gentle traction we were able to dissect away the omental adhesions from the serosal surface. A grasper was now placed on Ruvalcaba's pouch. Allowing for lateral traction, we could gently dissect out the fatty tissue around both the cystic duct and artery. The junction of the cystic duct having been identified with the gallbladder a clip was placed between the gallbladder and the cystic duct. An opening was made then made into the cystic duct. We were able to then cannulate the cystic duct through which we obtained a normal intraoperative cholangiogram. Good flow of contrast was seen flowing into the duodenum. The catheter was removed. Clips was placed on the distal portion of the cystic duct which was now fully transected. The artery was then isolated. It was clipped and divided in the usual manner. The gallbladder was now dissected free from the liver bed. There was some oozing coming from the lymph node that remained behind. This was controlled using judicious cautery. The gallbladder now having been detached from the liver itself was placed into an Endo Catch, and brought out through the umbilical trocar site. The abdomen was now inspected to ensure adequate hemostasis. On looking down into the pelvis we could see there was some adhesions from the omentum to the anterior abdominal wall. This may be from episodes of diverticulitis etc. but I did not dissect this out to explore. The abdomen was now closed by using the Endo Close to approximate the umbilical fascial defect. 3 sutures of absorbable material were placed in the area as the patient had a wide umbilicus with a small umbilical hernia that was found at the time of our gallbladder extraction. The pneumoperitoneum was now collapsed, the trocars removed, and gideon applied to the skin. At the end of the procedure he was in a stable condition was sent to the recovery room. Needle sponge instrument count were correct. No drains were placed. Complications: None Transferred to: Recovery Room Condition: Good
[2024-01-27] MEDS: KETOROLAC 30 MG/ML INJ ONE (17:30)
[2024-01-27] MEDS: FENTANYL CITR 100 MCG/2 ML ONE (17:30)
[2024-01-27] MEDS: HYDROMORPHONE HCL 1 MG/ML INJ ONE ×2 (17:32→17:49)
[2024-01-27] MEDS: Ringers Lactate 1,000 ML IV SCH (18:24)
[2024-01-27] MEDS: HYDROCODONE/APAP 7.5/325 MG TAB PO PRN (19:25)
--- NOTE | 2024-01-27 21:18 | RAD REPORT ---
EXAM DESCRIPTION: RAD - Cholangiogram Oper-Xray Or - 01/27/2024 9:11 pm CLINICAL HISTORY: LAP LIZZ WITH IOC DONE WITH CRUZ IN ROOM FOUR COMPARISON: Abdomen Exam Limited dated 01/27/2024 FINDINGS: Cystic duct injection was performed by the operating surgeon. Common bile duct is normal i n size with no evidence of a filling defect. Intrahepatic biliary tree is within normal limits. Total fluoro time: 0.6 minutes IMPRESSION: No evidence of retained common duct stone.
[2024-01-28 05:56] LABS: Absolute Eosinophils 0.1 K/uL (0-0.5); Absolute Monocytes 0.8 K/uL (0.1-1.3); Absolute Neutrophil 9.6 K/uL (1.8-8.0); Basophils % 0.4 % (0-1.3); Eosinophils % 0.5 % (0-4.4); Hematocrit 41.3 % (39.6-49.0); Hemoglobin 14.2 g/dL (13.6-17.9); Lymphocytes % 16.3 % (15.3-44.8); MCHC 34.4 g/dL (32.0-36.0); MCV 90.1 fL (80-100); MPV 7.6 fL (7.6-11.3); Monocytes % 6.4 % (3.3-12.3); Neutrophils % 76.4 % (41.7-73.7); Platelets 350 thou/uL (152-406); RBC Red Blood Cell Count 4.58 M/uL (4.33-5.43); Red Cell Distribution Width 12.6 % (12.1-15.2)
[2024-01-28 06:19] LABS: ALT/SGPT 70 U/L (16-61); AST/SGOT 32 U/L (15-37); Albumin 3.4 g/dL (3.4-5.0); Albumin/Globulin Ratio 0.8 (1.1-1.8); Alkaline Phosphatase 82 U/L (45-117); Anion Gap 10.6 mEq/L (5.0-15.0); BUN Blood Urea Nitrogen 11 mg/dL (7-18); Bicarbonate 27 mEq/L (21-32); Bilirubin Total 0.5 mg/dL (0.2-1.0); Globulin 4.4 g/dL (2.3-3.5); Glomerular Filtration Rate 113 ml/min (=/>90); Glucose Level 125 mg/dL (74-106); Lipase 33 U/L (13-75); Potassium 3.6 mEq/L (3.5-5.1); Protein, Total 7.8 g/dL (6.4-8.2); Sodium Level 135 mEq/L (136-145)
[2024-01-28 06:24] LABS: Bilirubin Direct < 0.2 mg/dL (0-0.2); Bilirubin Indirect, Calculated 0.3 mg/dL (0.2-0.8)
[2024-01-28 07:26] VITALS: O2SAT 96
[2024-01-28 11:28] VITALS: BP 146/87; TEMP 97.4
--- NOTE | 2024-01-28 15:14 | P.DS ---
Admission Date: 01/27/24 Discharge Date: 01/28/24 Disposition: ROUTINE DISCHARGE Discharge Condition: GOOD Procedures: Laparoscopic cholecystectomy with cholangiogram Brief History of Present Illness: This patient, who had a known history of cholelithiasis presenting to the emergency room with abdominal pain for diagnosis and treatment. Hospital Course: Patient presented to the emergency room with severe right upper quadrant abdominal pain. On workup was found to have Jordyn cystitis with cholelithiasis. He was brought to the operating room where he underwent a laparoscopic cholecystectomy within normal intraoperative cholangiogram. He was admitted postoperatively operatively for observation and pain control. Today he is up ambulating, tolerating a diet, and his pain is controlled on oral medications. He is deemed fit for discharge. Vital Signs/Physical Exam: Temp Pulse Resp BP Pulse Ox 97.4 F 71 18 146/87 H 95 01/28/24 11:26 01/28/24 11:26 01/28/24 13:13 01/28/24 11:26 01/28/24 13:13 Laboratory Data at Discharge: WBC 12.60 thou/uL (4.3-10.9) H 01/28/24 05:26 Hgb 14.2 g/dL (13.6-17.9) D 01/28/24 05:26 Hct 41.3 % (39.6-49.0) 01/28/24 05:26 Plt Count 350 thou/uL (152-406) 01/28/24 05:26 Sodium 135 mEq/L (136-145) L 01/28/24 05:26 Potassium 3.6 mEq/L (3.5-5.1) 01/28/24 05:26 BUN 11 mg/dL (7-18) 01/28/24 05:26 Creatinine 0.87 mg/dL (0.70-1.30) 01/28/24 05:26 Glucose 125 mg/dL (74-106) H 01/28/24 05:26 Total Bilirubin 0.5 mg/dL (0.2-1.0) 01/28/24 05:26 AST 32 U/L (15-37) 01/28/24 05:26 ALT 70 U/L (16-61) H 01/28/24 05:26 Alkaline Phosphatase 82 U/L (45-117) 01/28/24 05:26 Lipase 33 U/L (13-75) 01/28/24 05:26 Home Medications: NK [No Home Meds] 01/27/24 Physician Discharge Instructions: DC IV, DC home. Pain medicine as needed. Diet as discussed. Milk of magnesia as needed constipation. Ambulated home. You may shower change dressings as needed. Continue with incentive spirometer. Any questions or problems, return to the emergency room, or contact me. Come to my office next Sunday, at 10 AM. Diet: Regular Activity: Ad nani Followup: Rip Morrow MD [ACTIVE - CAN ADMIT] - 02/04/24 (Call for appointment) Davis Velasquez PAC [Primary Care Provider] - 1-2 Weeks
--- NOTE | 2024-01-28 19:00 | RAD REPORT ---
EXAM DESCRIPTION: US ABDOMEN LIMITED CLINICAL HISTORY: Abdominal pain. COMPARISON: CT abdomen and pelvis 02/05/2023. TECHNIQUE: Grayscale, color and spectral Doppler ultrasound of the gallbladder was performed. FINDINGS: Small amount of gallstones near gallbladder neck. There is pericholecystic fluid and gallb ladder wall hyperemia. No significant gallbladder wall thickening. Positive Lantigua's sign. The common bile duct measures 4.8 mm, within normal range. There is no evidence of choledocholithiasi s. IMPRESSION: Cholelithiasis with concern for acute cholecystitis. Follow-up with nuclear medicine HID A scan can be considered. Electronically signed by: Aileen Lawton MD 01/27/2024 03:49 AM CDT RP Due to temporary technical issues with the PACS/Fluency reporting system, reports are being signed by the in house radiologists without review as a courtesy to insure prompt reporting. The interpreting radiologist is fully responsible for the content of the report.
== END 2024-01-28 15:18 | disposition home or self-care (01) | DRG 419 ==
LOC: ER 01:38 → ERHOLD 04:17 → 4TH 05:09
PROVIDERS: ADMIT Surgery; ATTEND Surgery
PROC: BF522Z0 Other Imaging of Gallbladder using Fluorescing Agent, Intraoperative (ICD-10-PCS; 2024-01-27)
PROC: 0FT44ZZ Resection of Gallbladder, Percutaneous Endoscopic Approach (ICD-10-PCS; principal; 2024-01-27 14:15)
DX: K80.12 Calculus of gallbladder with acute and chronic cholecystitis without obstruction (principal); Z90.49 Acquired absence of other specified parts of digestive tract
CPT/HCPCS: 36415; 74300; 76705; 80048; 80053; 80076; 83690; 85025; 88304; 94010; 96365; 96375; 99285; J0694; J1170; J2250; J2405; J2543; J2704; J2710; J3010; J7120; J7799

== ENCOUNTER 2024-03-15 11:38 | Emergency (ER) | payer BC ==
[2024-03-15] MEDS ORDERED: ONDANSETRON 4 MG/2 ML VIAL ONE ×2 (12:04→14:05)
[2024-03-15] MEDS ORDERED: MORPHINE 4 MG/ML SYR ONE ×2 (12:04→13:03)
[2024-03-15] MEDS ORDERED: FAMOTIDINE 20 MG/2 ML VIAL IV ONE (12:04)
[2024-03-15] MEDS ORDERED: NA CHLORIDE 0.9% 1,000 ML ONE (12:04)
[2024-03-15 12:26] LABS: Absolute Eosinophils 0.1 K/uL (0-0.5); Absolute Lymphocytes (CBC) 0.6 K/uL (0.7-4.9); Absolute Monocytes 0.7 K/uL (0.1-1.3); Absolute Neutrophil 17.9 K/uL (1.8-8.0); Basophils % 0.2 % (0-1.3); Eosinophils % 0.5 % (0-4.4); Hemoglobin 15.7 g/dL (13.6-17.9); Lymphocytes % 3.1 % (15.3-44.8); MCH 29.7 pg (27.0-35.0); MCHC 33.3 g/dL (32.0-36.0); MCV 89.2 fL (80-100); MPV 7.7 fL (7.6-11.3); Monocytes % 3.4 % (3.3-12.3); Neutrophils % 92.8 % (41.7-73.7); Platelets 357 thou/uL (152-406); RBC Red Blood Cell Count 5.26 M/uL (4.33-5.43); Red Cell Distribution Width 12.9 % (12.1-15.2)
[2024-03-15 12:37] LABS: Albumin 4.1 g/dL (3.4-5.0); Albumin/Globulin Ratio 0.8 (1.1-1.8); Anion Gap 10.8 mEq/L (5.0-15.0); Bilirubin Total 0.7 mg/dL (0.2-1.0); Globulin 4.9 g/dL (2.3-3.5); Potassium 3.8 mEq/L (3.5-5.1)
[2024-03-15 12:58] LABS: Blood Morphology Comment NOT SEEN (NOT SEEN); Platelet Estimate ADEQ; Platelets, Giant FEW; White Blood Cell Scan OK (OK)
[2024-03-15 13:37] LABS: PT Prothrombin Time 11.8 SECONDS (9.4-12.5); PTT, Activated Partial Thromb 34.4 SECONDS (24.3-36.9); Protime INR 1.06
--- NOTE | 2024-03-15 13:46 | RAD REPORT ---
EXAMINATION: CT Abdomen Pelvis W Contrast CLINICAL INDICATION: Male, 39 years old. ABD PAIN TECHNIQUE: CT abdomen and pelvis was performed, after the administration of IV contrast, as per depar tment protocol. Axial, sagittal and coronal reconstructions were obtained. One or more of the following dose reduction techniques were used: Automated exposure control, adjustment of the mA and k V according to patient size, and iterative reconstruction. Unless otherwise specified, incidental findings do not require dedicated imaging follow-up. COMPARISON: 09/04/2023. FINDINGS: LOWER CHEST: The visualized lung bases are clear. LIVER: Normal in size and contour. No focal lesion. BILIARY SYSTEM: Status post cholecystectomy. No intrahepatic biliary ductal dilation. SPLEEN: Normal size. No focal lesion. PANCREAS: No mass, ductal dilation, or ayde-pancreatic fluid. ADRENALS: Normal; no mass. KIDNEYS: Normal size and contour. No hydronephrosis. URINARY BLADDER: Suboptimally distended limiting evaluation. GASTROINTESTINAL TRACT: Nonspecific fluid opacification of distal small bowel and proximal large ramin l, without significant distension. No evidence of free air, significant intra-abdominal free fluid, bowel obstruction or abscess. APPENDIX: Appendix surgically absent. LYMPH NODES: No lymphadenopathy. MUSCULOSKELETAL: No acute or suspicious osseous abnormality. ADDITIONAL FINDINGS: None. IMPRESSION: Nonspecific fluid opacification of distal small bowel and proximal large bowel, without significant d istension. This may relate to infectious or inflammatory enterocolitis, or diarrheal state. Status post cholecystectomy.
[2024-03-15] MEDS ORDERED: KETOROLAC 30 MG/ML INJ ONE (14:05)
--- NOTE | 2024-03-15 14:14 | EDPHYS ---
Physician Documentation [facility] Name: Guy Joe Jr Age: 39 yrs Sex: Male : 1985 Arrival Date: 03/15/2024 Time: 11:38 Bed 16 Private MD: ED Physician Ned Mccarty HPI: 03/15 11:43 This 39 yrs old Male presents to ER via Unassigned with complaints of kb Abdominal Pain, Vomiting. 11:43 Pt is a 39 year old male who presents for RUQ pain that started at 0700. Reports kb nausea, vomiting, diarrhea. Had cholecystectomy in January. Denies fever. States he had this pain last week as well, but it went away after about 10 hours. Was not seen at that time. Historical: - Allergies: 11:48 No Known Allergies; ss - Home Meds: 11:48 None [Active]; ss - PMHx: 11:48 Asthma; ss - PSHx: 11:48 Appendectomy; Cholecystectomy; ss - Immunization history:: Client reports receiving the 1st dose of the Covid vaccine. - Infectious Disease History:: Denies. - Social history:: Smoking status: Patient denies any tobacco usage or history of. ROS: 11:44 Constitutional: As per HPI kb Exam: 11:44 Constitutional: This is a well developed, well nourished patient who is awake, alert, kb and in no acute distress. Head/Face: Normocephalic, atraumatic. ENT: Moist Mucous membranes Cardiovascular: Regular rate Respiratory: Respirations even and unlabored. No increased work of breathing. Talking in full sentences Skin: Warm, dry with normal turgor. Normal color. MS/ Extremity: Pulses equal, no cyanosis. Neurovascular intact. Full, normal range of motion. Neuro: Awake and alert, GCS 15, oriented to person, place, time, and situation. 11:44 Abdomen/GI: Inspection: abdomen appears normal, Bowel sounds: normal, Palpation: soft, in all quadrants, moderate abdominal tenderness, in the right upper quadrant, 13:26 ECG was reviewed by the Attending Physician. kb Vital Signs: 11:53 BP 138 / 91; Pulse 105; Resp 30; Temp 98.7(O); Pulse Ox 98% on R/A; Weight 128.37 kg; ss Height 6 ft. 1 in. ; Pain 10/10; 12:36 BP 136 / 90; Pulse 95; Resp 16; Pulse Ox 95% ; ko1 14:52 BP 124 / 82; Pulse 88; Resp 16; Pulse Ox 99% ; ko1 11:53 Body Mass Index 37.34 (128.37 kg, 185.42 cm) ss 11:53 Pain Scale: Adult ss MDM: 11:41 Medical Screening Exam initiated kb 13:23 Data reviewed: vital signs, nurses notes. Transition of care: After a detail discussion kb of the patient's case, care is transferred to [facility]. 14:00 Differential diagnosis: appendicitis, bowel obstruction, Choledocholithiasis. dr5 Consideration of Admission/Observation Escalation of care including admission/observation considered. Considered admission if CT showed unstable condition.. I considered the following discharge prescriptions or medication management in the emergency department Medications were administered in the Emergency Department. See MAR. Care significantly affected by the following chronic conditions: Asthma. Care significantly affected by the following Social Determinants of Health: Poor access to healthcare and/or lack of insurance, Poor access to transportation. Counseling: I had a detailed discussion with the patient and/or guardian regarding the historical points, exam findings, and any diagnostic results supporting the discharge/admit diagnosis, lab results, radiology results, the need for outpatient follow up, for definitive care, a family practitioner, to return to the emergency department if symptoms worsen or persist or if there are any questions or concerns that arise at home. Medication response: Toradol markedly relieved the patient's pain, Zofran relieved the patient's nausea. Response to treatment: the patient's symptoms have markedly improved after treatment. ED course: Pt CT came back and no signs of abscess, diverticulitis with perforation or gas. Will discharge patient with Zofran and antibiotics with close PCP follow up this week. Pt is well appearing. All questions answered.. 03/15 11:46 Order name: CBC with Diff; Complete Time: 13:01 kb 03/15 13:56 Interpretation: Abnormal: HCT 47.0. dr5 03/15 11:46 Order name: CMP; Complete Time: 12:38 kb 03/15 11:46 Order name: Lipase; Complete Time: 12:38 kb 03/15 12:34 Order name: Blood Culture Adult (2) kb 03/15 12:34 Order name: Lactate w/ 2H reflex if indic.; Complete Time: 13:48 kb 03/15 12:34 Order name: Protime (+inr); Complete Time: 13:48 kb 03/15 12:34 Order name: Ptt, Activated; Complete Time: 13:48 kb 03/15 12:59 Order name: CBC Smear Scan; Complete Time: 13:01 EDMS 03/15 11:46 Order name: CT Abd/Pelvis - IV Contrast Only; Complete Time: 13:48 kb 03/15 12:34 Order name: EKG; Complete Time: 12:34 kb 03/15 11:46 Order name: IV Saline Lock; Complete Time: 12:16 kb 03/15 11:46 Order name: Labs collected and sent; Complete Time: 12:16 kb 03/15 12:34 Order name: Cardiac monitoring; Complete Time: 12:35 kb 03/15 12:34 Order name: EKG - Nurse/Tech; Complete Time: 13:01 kb 03/15 12:34 Order name: Vital Signs; Complete Time: 12:35 kb EC:26 Rate is 87 beats/min. Rhythm is regular. QRS [place] is Normal. MA interval is normal at kb 156 msec. QRS interval is normal at 106 msec. QT interval is normal at 425 msec. Administered Medications: 12:16 Drug: NS 0.9% IV 1000 ml IV at 1 bolus Per protocol; to be given as a bolus over 60 ko1 minutes Route: IV; Rate: 1 bolus; Site: left upper arm; 13:58 Follow up: Response: No adverse reaction; IV Status: Completed infusion; IV Intake: ko1 1000ml 12:17 Drug: Famotidine IVP 20 mg IVP once; dilute with 10 mL 0.9% NaCl; give over 2 minutes ko1 Route: IVP; Site: left upper arm; 12:32 Follow up: Response: No adverse reaction ko1 12:17 Drug: Ondansetron IVP 4 mg IVP once; over 2 minutes Route: IVP; Site: left upper arm; ko1 12:32 Follow up: Response: No adverse reaction ko1 12:17 Drug: morphine IVP or IV 4 mg IVP once over 4 mins Route: IVP; Infused Over: 4 mins; ko1 Site: left upper arm; 12:32 Follow up: Response: No adverse reaction ko1 13:03 Drug: morphine IVP or IV 4 mg IVP once over 4 mins Route: IVP; Infused Over: 4 mins; ko1 Site: left antecubital; 13:18 Follow up: Response: No adverse reaction ko1 14:11 Drug: Ondansetron IVP 4 mg IVP once; over 2 minutes Route: IVP; Site: left antecubital; ko1 14:26 Follow up: Response: No adverse reaction ko1 14:11 Drug: Ketorolac IVP 15 mg IVP once Route: IVP; Site: left antecubital; ko1 14:26 Follow up: Response: No adverse reaction ko1 Disposition Summary: 03/15/24 14:13 Discharge Ordered Notes: Location: Home dr5 Condition: Stable dr5 Diagnosis - Noninfective gastroenteritis and colitis, unspecified dr5 Followup: dr5 - With: Emergency Department - When: As needed - Reason: Worsening of condition Followup: dr5 - With: Private Physician - When: 1 - 2 days - Reason: Recheck today's complaints, Continuance of care, Re-evaluation by your physician Discharge Instructions: - Discharge Summary Sheet dr5 - Food Choices to Help Relieve Diarrhea, Adult dr5 - Colitis dr5 Forms: - Medication Reconciliation Form dr5 - Antibiotic Education dr5 - Patient Portal Instructions dr5 - Leadership Thank You Letter dr5 Prescriptions: - Anaprox DS 550 mg Oral Tablet - take 1 tablet ORAL route every 12 hours As needed; 20 tablet; Refills: 0, dr5 Product Selection Permitted - Augmentin 875-125 mg Oral Tablet - take 1 tablet ORAL route every 12 hours for 10 days; 20 tablet; Refills: 0, dr5 Product Selection Permitted - Zofran 4 mg Oral Tablet - take 1 tablet ORAL route every 12 hours As needed; 20 tablet; Refills: 0, dr5 Product Selection Permitted Signatures: Dispatcher [employer] EDTX Teresita Clement, GEOPHYSICAL MANAGER-C GEOPHYSICAL MANAGER-CkShayla Hayes RN RN ss Oliver, Kathy, RN RN ko1 Gabe Lomas FNP-C GEOPHYSICAL MANAGER-Cdr5 Corrections: (The following items were deleted from the chart) 11:46 11:46 CBC+H.LAB.BRZ ordered. EDMS EDMS 11:46 11:46 COMPREHENSIVE METABOLIC PANEL+C.LAB.BRZ ordered. EDMS EDMS 11:46 11:46 LIPASE+C.LAB.BRZ ordered. EDMS EDMS 11:46 11:46 Abdomen Pelvis W Con+CT.RAD.BRZ ordered. EDMS EDMS
--- NOTE | 2024-03-15 14:14 | ER ---
Nurse's Notes [facility] Name: Guy Joe Jr Age: 39 yrs Sex: Male : 1985 Arrival Date: 03/15/2024 Time: 11:38 Bed 16 [facility] MD: Diagnosis: Noninfective gastroenteritis and colitis, unspecified Presentation: 03/15 11:48 Chief complaint: Patient states: abdominal pain that began this morning with N/V. ss Coronavirus screen: Client denies travel out of the [place] in the last 14 days. Ebola Screen: Patient denies exposure to infectious person. Patient denies travel to an Ebola-affected area in the 21 days before illness onset. Initial Sepsis Screen: Does the patient meet any 2 criteria? No. Patient's initial sepsis screen is negative. Does the patient have a suspected source of infection? No. Patient's initial sepsis screen is negative. Risk Assessment: Do you want to hurt yourself or someone else? Patient reports no desire to harm self or others. Onset of symptoms was March 15, 2024. 11:48 Method Of Arrival: Ambulatory ss 11:48 Acuity: LOW 2 ss Historical: - Allergies: 11:48 No Known Allergies; ss - Home Meds: 11:48 None [Active]; ss - PMHx: 11:48 Asthma; ss - PSHx: 11:48 Appendectomy; Cholecystectomy; ss - Immunization history:: Client reports receiving the 1st dose of the Covid vaccine. - Infectious Disease History:: Denies. - Social history:: Smoking status: Patient denies any tobacco usage or history of. Screenin:[address] [facility] ED Fall Risk Assessment (Adult) History of falling in the last 3 months, ko1 including since admission No falls in past 3 months (0 pts) Confusion or Disorientation No (0 pts) Intoxicated or Sedated No (0 pts) Impaired Gait No (0 pts) Mobility Assist Device Used No (0 pt) Altered Elimination No (0 pt) Score/Fall Risk Level 0 - 2 = Low Risk Oriented to surroundings, Maintained a safe environment, Educated pt \T\ family on fall prevention, incl call for assistance when getting out of bed, Assessed \T\ reinforced patient's understanding of fall precautions, Provided non-skid footwear, Hourly rounding (assess needs \T\ fall precautionary measures) done. Abuse screen: Denies threats or abuse. Denies injuries from another. Nutritional screening: No deficits noted. Tuberculosis screening: No symptoms or risk factors identified. Assessment: 12:15 General: Appears distressed, uncomfortable, obese, Behavior is calm, cooperative, ko1 appropriate for age. Pain: Complains of pain in right upper quadrant. Neuro: No deficits noted. Cardiovascular: No deficits noted. Respiratory: No deficits noted. GI: Bowel sounds present X 4 quads. Abd is soft X 4 quads Reports upper abdominal pain. : No deficits noted. EENT: No deficits noted. Derm: No deficits noted. Musculoskeletal: No deficits noted. Vital Signs: 11:53 BP 138 / 91; Pulse 105; Resp 30; Temp 98.7(O); Pulse Ox 98% on R/A; Weight 128.37 kg; ss Height 6 ft. 1 in. ; Pain 10/10; 12:36 BP 136 / 90; Pulse 95; Resp 16; Pulse Ox 95% ; ko1 14:52 BP 124 / 82; Pulse 88; Resp 16; Pulse Ox 99% ; ko1 11:53 Body Mass Index 37.34 (128.37 kg, 185.42 cm) ss 11:53 Pain Scale: Adult ss ED Course: 11:40 Patient arrived in ED. sj2 11:41 Teresita Clement FNP-C is PHCP. kb 11:41 Ned Mccarty MD is Attending Physician. kb 11:48 Triage completed. ss 11:48 Arm band placed on right wrist. ss 11:53 Galina Moss, RN is Primary Nurse. ko1 12:15 No provider procedures requiring assistance completed. Initial lab(s) drawn, by wv, florin sent to lab. Inserted saline lock: 20 gauge in left antecubital area, using aseptic technique. Blood collected. Flushed with 10 mL NS. 12:16 CBC with Diff Sent. ko1 12:16 CMP Sent. ko1 12:16 Lipase Sent. ko1 12:36 Patient has correct armband on for positive identification. Bed in low position. Call ko1 light in reach. Side rails up X 1. Provided Education on: labs. Client placed on continuous cardiac and pulse oximetry monitoring. NIBP monitoring applied. soil biology teacher on. Door closed. Noise minimized. Lights dimmed. Warm blanket given. Pillow given. 12:53 CT Abd/Pelvis - IV Contrast Only In Process Unspecified. EDMS 13:03 EKG done, by ED staff, reviewed by Teresita NAIDU. em1 13:18 Blood Culture Adult (2) Sent. ko1 13:18 Lactate w/ 2H reflex if indic. Sent. ko1 13:18 Protime (+inr) Sent. ko1 13:18 Ptt, Activated Sent. ko1 13:23 PHCP role handed off by Teresita Clement FNP-C kb 13:23 Gabe Lomas FNP-C is PHCP. kb 14:52 IV discontinued, intact, bleeding controlled, No redness/swelling at site. Pressure ko1 dressing applied. Administered Medications: 12:16 Drug: NS 0.9% IV 1000 ml IV at 1 bolus Per protocol; to be given as a bolus over 60 ko1 minutes Route: IV; Rate: 1 bolus; Site: left upper arm; 13:58 Follow up: Response: No adverse reaction; IV Status: Completed infusion; IV Intake: ko1 1000ml 12:17 Drug: Famotidine IVP 20 mg IVP once; dilute with 10 mL 0.9% NaCl; give over 2 minutes ko1 Route: IVP; Site: left upper arm; 12:32 Follow up: Response: No adverse reaction ko1 12:17 Drug: Ondansetron IVP 4 mg IVP once; over 2 minutes Route: IVP; Site: left upper arm; ko1 12:32 Follow up: Response: No adverse reaction ko1 12:17 Drug: morphine IVP or IV 4 mg IVP once over 4 mins Route: IVP; Infused Over: 4 mins; ko1 Site: left upper arm; 12:32 Follow up: Response: No adverse reaction ko1 13:03 Drug: morphine IVP or IV 4 mg IVP once over 4 mins Route: IVP; Infused Over: 4 mins; ko1 Site: left antecubital; 13:18 Follow up: Response: No adverse reaction ko1 14:11 Drug: Ondansetron IVP 4 mg IVP once; over 2 minutes Route: IVP; Site: left antecubital; ko1 14:26 Follow up: Response: No adverse reaction ko1 14:11 Drug: Ketorolac IVP 15 mg IVP once Route: IVP; Site: left antecubital; ko1 14:26 Follow up: Response: No adverse reaction ko1 Medication: 14:52 VIS not applicable for this client. ko1 Intake: 13:58 IV: 1000ml; Total: 1000ml. ko1 Outcome: 14:13 Discharge ordered by . cali 14:52 Discharged to home ambulatory, with family, ko1 14:52 Condition: stable 14:52 Discharge instructions given to patient, family, Instructed on discharge instructions, follow up and referral plans. medication usage, Demonstrated understanding of instructions, follow-up care, medications, Prescriptions given X 3, 14:53 Patient left the ED. ko1 Signatures: Dispatcher [employer] EDMS Teresita Clement, X RAY SERVICE TECHNICIAN-C X RAY SERVICE TECHNICIAN-Ckb Christofer Albright em1 Shayla Joseph, SPENCER RN ss Galina Moss RN RN ko1 Dieter Acuna sj2 Gabe Lomas, X RAY SERVICE TECHNICIAN-C X RAY SERVICE TECHNICIAN-Cdr5 Corrections: (The following items were deleted from the chart) 11:54 11:48 Acuity: LOW 3 ss ss
[2024-03-16 00:46] VITALS: TEMP 98.7
[2024-03-16 00:58] VITALS: BP 124/82; O2SAT 99
--- NOTE | 2024-03-16 15:03 | EKG ---
Test Date: 2024-03-15 Test Time: 13:01:17 Learning Disabled Teacher: ANDREY MEASUREMENT RESULTS: Intervals: Rate: 87 MT: 156 QRSD: 106 QT: 354 QTc: 425 Rentz: P: 53 MT: 156 QRS: 24 T: 42 INTERPRETIVE STATEMENTS: Normal sinus rhythm Normal ECG Compared to ECG 09/04/2023 13:07:58 Sinus tachycardia no longer present Electronically Signed On 03-16-24 15:02:44 CDT by Catarino Lopez
== END 2024-03-15 14:53 | disposition home or self-care (01) ==
LOC: ER 11:38
DX: K52.9 Noninfective gastroenteritis and colitis, unspecified (principal)
CPT/HCPCS: 93005; 87040 ×2; 85025; 36415; 85610; 83605; 85730; 83690; 80053; 74177; Q9967; J2405 ×2; J7030; 99285